=== PATIENT | male | born 1955 | race Caucasian/White ===

== ENCOUNTER → 2018-02-23 11:27 | Outpatient (CLI) | payer OTHER, SELFPAY ==
[2018-02-23 12:25] LABS: Creatinine Urine Random 78.6 mg/dL
[2018-02-23 12:27] LABS: Hemoglobin A1C% w Est Avg Glu 7.2 % (4.0-6.0)
[2018-02-23 12:30] LABS: Microalbumi Creatinin Ratio Ur 15.2 ug/mg CR (<30); Microalbumin Urine Random 1.2 mg/dL (0-1.6)
[2018-02-23 12:49] LABS: Cholesterol 221 mg/dL (140-199); HDL Cholesterol 41 mg/dL (40-60); LDL Cholesterol Calculated 135 mg/dL (<100); Triglycerides 223 mg/dL (35-150)
== END ==
PROVIDERS: PCP Internal Medicine; Visit Provider Internal Medicine
DX: E11.40 Type 2 diabetes mellitus with diabetic neuropathy, unspecified (principal); E78.2 Mixed hyperlipidemia
CPT/HCPCS: 36415; 80061; 82043; 82570; 83036

== ENCOUNTER → 2018-07-06 10:50 | Outpatient (CLI) | payer OTHER, SELFPAY | PROVIDERS: PCP Internal Medicine; Visit Provider Student in an Organized Health Care Education/Training Program | DX: R97.20 Elevated prostate specific antigen [PSA] (principal) | CPT/HCPCS: 36415; 84153 ==

== ENCOUNTER → 2018-08-06 10:07 | Outpatient (CLI) | payer OTHER, SELFPAY ==
[2018-08-06 12:22] LABS: Estimated Glomerular Filt Rate > 60.0 mL/min (>60)
== END ==
PROVIDERS: PCP Internal Medicine; Visit Provider Student in an Organized Health Care Education/Training Program
DX: N40.2 Nodular prostate without lower urinary tract symptoms (principal); R97.20 Elevated prostate specific antigen [PSA]
CPT/HCPCS: 36415; 82565

== ENCOUNTER → 2018-10-26 11:03 | Outpatient (CLI) | payer OTHER, SELFPAY ==
[2018-10-26 13:13] LABS: Prostate Specific Antigen < 0.064 ng/mL (0.10-4.00)
== END ==
PROVIDERS: Family Provider Internal Medicine; PCP Internal Medicine; Visit Provider Physician Assistant
DX: C61 Malignant neoplasm of prostate (principal)
CPT/HCPCS: 36415; 84153

== ENCOUNTER → 2018-12-12 11:10 | Outpatient (CLI) | payer OTHER, SELFPAY ==
[2018-12-13 14:25] LABS: PSA, Total < 0.1 ng/mL (< 4.1)
== END ==
PROVIDERS: PCP Internal Medicine; Visit Provider Student in an Organized Health Care Education/Training Program
DX: C61 Malignant neoplasm of prostate (principal)
CPT/HCPCS: 36415; 84153; 84154

== ENCOUNTER → 2019-12-14 14:41 | Outpatient (ROUT) | payer OTHER, SELFPAY | PROVIDERS: PCP Internal Medicine; Visit Provider Internal Medicine | DX: R39.9 Unspecified symptoms and signs involving the genitourinary system (principal) | CPT/HCPCS: 87077; 87086; 87186 ==

== ENCOUNTER → 2020-10-17 19:10 | Outpatient (ROUT) | payer OTHER, SELFPAY ==
[2020-10-17 19:32] LABS: Aspartate Aminotransferase 25 IU/L (17-59); BUN Creatinine Ratio 32.5 (6-22); Blood Urea Nitrogen 26 mg/dL (9-20); Calcium 10.2 mg/dL (8.4-10.2); Carbon Dioxide 33 mmol/L (22-32); Chloride 100 mmol/L (98-107); Cholesterol 231 mg/dL (140-199); Estimated Glomerular Filt Rate > 60.0 mL/min (>60); Glucose 139 mg/dL (80-110); HDL Cholesterol 58 mg/dL (40-60); HEMOLYSIS < 15 (0-50); LDL Cholesterol Calculated 138 mg/dL (<100); Potassium 4.5 mmol/L (3.4-5.1); Sodium 140 mmol/L (137-145); Triglycerides 174 mg/dL (35-150)
[2020-10-17 19:33] LABS: Hemoglobin A1C% w Est Avg Glu 6.7 % (4.0-6.0)
[2020-10-17 20:02] LABS: Prostate Specific Antigen < 0.064 ng/mL (0.10-4.00)
== END ==
PROVIDERS: PCP Internal Medicine; Visit Provider Internal Medicine
DX: I10 Essential (primary) hypertension (principal); E78.2 Mixed hyperlipidemia; E11.9 Type 2 diabetes mellitus without complications; Z12.5 Encounter for screening for malignant neoplasm of prostate
CPT/HCPCS: 80048; 80061; 83036; 84153; 84450

== ENCOUNTER → 2020-11-08 13:27 | Outpatient (CLI) | payer MEDICARE, SELFPAY ==
[2020-11-08] MEDS: COVID-19 VACC #1, MRNA(MOD) 100 MCG/0.5 ML VIAL IM (13:38)
== END ==
PROVIDERS: PCP Internal Medicine; Visit Provider Internal Medicine
DX: Z23 Encounter for immunization (principal)
CPT/HCPCS: 0011A; 91301

== ENCOUNTER → 2020-12-06 13:18 | Outpatient (CLI) | payer MEDICARE, SELFPAY ==
[2020-12-06] MEDS: COVID-19 VACC #2, MRNA(MOD) 100 MCG/0.5 ML VIAL IM (13:30)
== END ==
PROVIDERS: PCP Internal Medicine; Visit Provider Internal Medicine
DX: Z23 Encounter for immunization (principal)
CPT/HCPCS: 0012A; 91301

== ENCOUNTER 2021-04-01 11:15 | Outpatient (RCR) | payer OTHER, SELFPAY ==
--- NOTE | 2021-03-25 15:27 | PT.OIE ---
Current Diagnoses Cervicalgia (03/25/21) Low back pain (03/25/21) Visit Care Team Role Provider Type Vinod Khan MD Attending Provider Physician Primary Care Provider Referring Provider Specialty: Internal Medicine Address: [address] [place] [address], [facility] Email: [email or web address] Initial Evaluation PT-OP-A Visit Information Start: 03/25/21 15:03 Freq: Status: Active Protocol: Document 03/25/21 15:03 OF (Rec: 03/25/21 15:27 OF [id number]) Out-Patient Physical Therapy Visit Information Visit Information Visit Type Initial Evaluation Visit Note 65 YO male referred due to neck pain Visit Start Time 14:30 Visit Stop Time 15:03 Total Visit Minutes 33 Visit Number 1 Evaluation Information Evaluation Date 03/25/21 Precautions Precautions cervical fusion c3-5. Neuropathy, DM II, parasthesia c8 dermatome on L PT-OP-B Current Condition Start: 03/25/21 15:03 Freq: Status: Active Protocol: Document 03/25/21 15:03 OF (Rec: 03/25/21 15:27 OF [id number]) Current Condition History of Current Condition Onset Date 4 years Current Complaints headache, neck pain History of Current Condition pt states he has had an improvement in headaches since requesting PT referral. Longstanding neuropathy Treatment Goals Patient/Caregiver Goals get back to normal Prior Functional Status Baseline Function- ADL's Independent Baseline Function- Mobility Independent Current Functional Impairments (Reported) Functional Limitations- Other Pt has difficulty with overhead reaching, pain with ADL PT-OP-C Subjective Start: 03/25/21 15:03 Freq: Status: Active Protocol: Document 03/25/21 15:03 OF (Rec: 03/25/21 15:27 OF [id number]) OP-PT Subjective Patient Comments Patient Comments Pt states he has had good results from therapy previously Patient Reported Progress Improving Patient Questionnaires Neck Disability Index Neck Disability Index Impairment 1 to 19% Impaired (Score 1-9) OP-PT Pain Assessment Pain Assessment Grid Paper Pain Assessment Grid Completed Yes Location R cervical region Scale Used Numeric (0 - 10) Description Aching,Pinching,Pressure Frequency Frequent Radiating Location R sided occipital headache Pain Aggravating Factors Changing Position,ADL's, Activity,Exercise Pain Alleviating Factors Inactivity Other Pain Alleviating Factors TENS PT-OP-H Neuro Start: 03/25/21 15:03 Freq: Status: Active Protocol: Document 03/25/21 15:03 OF (Rec: 03/25/21 15:27 OF [id number]) Sensation Evaluation Gross Sensation Gross Sensation WNL Sensation Description Paresthesia Dermatome Impairments C8 Comments Summary Comments neuropathy bilat feet PT-OP-K Range of Motion Start: 03/25/21 15:03 Freq: Status: Active Protocol: Document 03/25/21 15:03 OF (Rec: 03/25/21 15:27 OF [id number]) Cervical Spine Range of Motion Cervical Spine Active Testing Position Sitting Flexion 45 Extension 60 Rotation Left 20 Rotation Right 25 Lateral Flexion Left 25 Lateral Flexion Right 20 ROM Limitations Pain Comments limited after cervical fusion Shoulder Goniometric Range of Motion Shoulder Active Shoulder ROM WFL Yes Comments Bilat shldr WNL PT-OP-Q Treatments Start: 03/25/21 15:03 Freq: Status: Active Protocol: Document 03/25/21 15:03 OF (Rec: 03/25/21 15:27 OF [id number]) Therapeutic Exercises Supine Exercises chin tuck Side bilateral Reps/Minutes [id number] Comments cues for DNF recruitment, goal for 60sec Sitting Exercises UT stretching Side bilateral Reps/Minutes [id number] Comments cues for sidebending Standing Exercises rows Side bilateral Resistance TB 2 Reps/Minutes 1x10 Comments cues for shoulder retraction, UT relaxing Manual Therapy Treatment Soft Tissue Mobilization suboccipital Mobilization Type Sustained Pressure Intensity/Depth Moderate Body Position Supine Comments Pt tolerates [id number] for suboccipital release/traction gentle P/A mobs Self-Care/Home Management Treatment Education Patient Education Body Mechanics,Home Exercise Program,Pain Management PT-OP-T Assessment and Plan Start: 03/25/21 15:03 Freq: Status: Active Protocol: Document 03/25/21 15:03 OF (Rec: 03/25/21 15:27 OF [id number]) Physical Therapy Assessment Rehab Potential Rehabilitation Potential Excellent Evaluation Complexity Number of Personal Factors/Comorbidities 1-2 Number of Body Systems Impaired 1-2 Clinical Presentation at Evaluation Stable Impairments Impairments Pain,ROM,Strength Goals 3 Impairment NDI Short Term Goal (STG) Pt will improve score on NDI to less than 5/50 to demonstrate improved function STG Duration 2 weeks Casing Finisher And Stuffer Goal (LTG) Pt will improve score on NDI to 0/50 to demonstrate improved function LTG Duration 4 weeks 2 Impairment Pain with ADL Short Term Goal (STG) Pt will demonstrate cervical rotation of 45 degrees bilat to reduce pain with ADL STG Duration 2 weeks Casing Finisher And Stuffer Goal (LTG) Pt will demonstrate 60 degrees rotation bilat to improve endurance with ADL LTG Duration 4 weeks 1 Impairment pt has no HEP Short Term Goal (STG) Pt will complete basic HEP with ALEXANDER STG Duration 2 weeks Jail Goal (LTG) Pt will be I with advanced HEP for DNF strengthening, ROM, pain management to return to I within community LTG Duration 4 weeds Assessment Summary Assessment Anusha is a 65 YO male referred to physical therapy for chronic neck pain. He has had 2 prior surgeries, the most recent in 2017 which was a fusion of c3-5. He has had off /on headaches on R side which have progressed to constant recently. He also has numbness /tingling in L UE with limits his ability to exercise and participate in community activities. He will require skilled therapy to improve I with ADl, return to community activities, and improve pain management. Physical Therapy Plan Frequency and Duration Frequency of Treatment 1-2x/week Duration of Treatment 4weeks Plan of Care Start Date 03/25/21 Plan of Care End Date 04/25/21 Therapeutic Interventions Therapeutic Interventions Home Exercise Program,Joint Mobilizations,Manual Therapy, Neuromuscular Re-education, Soft Tissue Mobilization, Therapeutic Exercises Next Visit Focus/Plan Next Note Type Treatment Note Next Visit Plan assess HEP performance/pain. Progress post scapular stabilizers if able, progress chin hillary lewis spine stretches. subocciptal mobs/manual traction for headache
--- NOTE | 2021-03-25 15:28 | PT.OPPOC ---
Physical, Occupational & Speech Therapy At [facility] Current Diagnoses Cervicalgia (03/25/21) Low back pain (03/25/21) Visit Care Team Role Provider Type Vinod Khan MD Attending Provider Physician Primary Care Provider Referring Provider Specialty: Internal Medicine Address: [address] [place] [address], [facility] Email: [email or web address] Plan Of Care PT-OP-T Assessment and Plan Start: 03/25/21 15:03 Freq: Status: Active Protocol: Document 03/25/21 15:03 OF (Rec: 03/25/21 15:27 OF [id number]) Physical Therapy Assessment Rehab Potential Rehabilitation Potential Excellent Evaluation Complexity Number of Personal Factors/Comorbidities 1-2 Number of Body Systems Impaired 1-2 Clinical Presentation at Evaluation Stable Impairments Impairments Pain,ROM,Strength Goals 3 Impairment NDI Short Term Goal (STG) Pt will improve score on NDI to less than 5/50 to demonstrate improved function STG Duration 2 weeks Digital Media Producer Goal (LTG) Pt will improve score on NDI to 0/50 to demonstrate improved function LTG Duration 4 weeks 2 Impairment Pain with ADL Short Term Goal (STG) Pt will demonstrate cervical rotation of 45 degrees bilat to reduce pain with ADL STG Duration 2 weeks Detention Goal (LTG) Pt will demonstrate 60 degrees rotation bilat to improve endurance with ADL LTG Duration 4 weeks 1 Impairment pt has no HEP Short Term Goal (STG) Pt will complete basic HEP with ALEXANDER STG Duration 2 weeks Digital Media Producer Goal (LTG) Pt will be I with advanced HEP for DNF strengthening, ROM, pain management to return to I within community LTG Duration 4 weeds Assessment Summary Assessment Anusha is a 65 YO male referred to physical therapy for chronic neck pain. He has had 2 prior surgeries, the most recent in 2017 which was a fusion of c3-5. He has had off /on headaches on R side which have progressed to constant recently. He also has numbness /tingling in L UE with limits his ability to exercise and participate in community activities. He will require skilled therapy to improve I with ADl, return to community activities, and improve pain management. Physical Therapy Plan Frequency and Duration Frequency of Treatment 1-2x/week Duration of Treatment 4weeks Plan of Care Start Date 03/25/21 Plan of Care End Date 04/25/21 Therapeutic Interventions Therapeutic Interventions Home Exercise Program,Joint Mobilizations,Manual Therapy, Neuromuscular Re-education, Soft Tissue Mobilization, Therapeutic Exercises Next Visit Focus/Plan Next Note Type Treatment Note Next Visit Plan assess HEP performance/pain. Progress post scapular stabilizers if able, progress hillary guevara spine stretches. subocciptal mobs/manual traction for headache Plan of Care Dates Plan of Care Start Date 03/25/21 Plan of Care End Date 04/25/21 Electronically Signed by: Sai Joy, PT 03/25/21 [id number] Please Sign and Return: I have reviewed this Plan of Care and certify that the skilled therapy services above are required to meet the patient?s needs. Physician Signature Date Printed Name and Credentials Clinical Instructor Signature Printed Name and Credentials
--- NOTE | 2021-03-28 10:38 | PT-OP ANOTE ---
Pt no showed appt, called pt and he was very apologetic, just completely forgot, but neck is feeling better. Confirmed next appt and pt states he will be there.
--- NOTE | 2021-04-01 11:47 | PT.OTN ---
Current Diagnoses Cervicalgia (04/01/21) Low back pain (04/01/21) Physical Therapy Treatment Note PT-OP-A Visit Information Start: 03/25/21 15:03 Freq: Status: Active Protocol: Document 04/01/21 11:39 OF (Rec: 04/01/21 11:47 OF [id number]) Out-Patient Physical Therapy Visit Information Visit Information Visit Type Treatment Note Visit Note 65 YO male referred due to neck pain Visit Start Time 11:15 Visit Stop Time 11:35 Total Visit Minutes 20 Visit Number 2 Precautions Precautions cervical fusion c3-5. Neuropathy, DM II, parasthesia c8 dermatome on L PT-OP-B Current Condition Start: 03/25/21 15:03 Freq: Status: Active Protocol: Document 03/25/21 15:03 OF (Rec: 03/25/21 15:27 OF [id number]) Current Condition History of Current Condition Onset Date 4 years Current Complaints headache, neck pain History of Current Condition pt states he has had an improvement in headaches since requesting PT referral. Longstanding neuropathy Treatment Goals Patient/Caregiver Goals get back to normal Prior Functional Status Baseline Function- ADL's Independent Baseline Function- Mobility Independent Current Functional Impairments (Reported) Functional Limitations- Other Pt has difficulty with overhead reaching, pain with ADL PT-OP-C Subjective Start: 03/25/21 15:03 Freq: Status: Active Protocol: Document 04/01/21 11:39 OF (Rec: 04/01/21 11:47 OF [id number]) OP-PT Subjective Patient Comments Patient Comments pt states he is feeling better , reduced pain, no parasthesia in L UE Patient Reported Progress Improving OP-PT Pain Assessment Pain Assessment Grid Paper Pain Assessment Grid Completed No Location R cervical region Intensity 1 Scale Used Numeric (0 - 10) Description Aching,Pinching,Pressure Frequency Frequent Radiating Location R sided occipital headache Pain Aggravating Factors Changing Position,ADL's, Activity,Exercise Pain Alleviating Factors Inactivity Other Pain Alleviating Factors TENS PT-OP-H Neuro Start: 03/25/21 15:03 Freq: Status: Active Protocol: Document 03/25/21 15:03 OF (Rec: 03/25/21 15:27 OF [id number]) Sensation Evaluation Gross Sensation Gross Sensation WNL Sensation Description Paresthesia Dermatome Impairments C8 Comments Summary Comments neuropathy bilat feet PT-OP-K Range of Motion Start: 03/25/21 15:03 Freq: Status: Active Protocol: Document 03/25/21 15:03 OF (Rec: 03/25/21 15:27 OF [id number]) Cervical Spine Range of Motion Cervical Spine Active Testing Position Sitting Flexion 45 Extension 60 Rotation Left 20 Rotation Right 25 Lateral Flexion Left 25 Lateral Flexion Right 20 ROM Limitations Pain Comments limited after cervical fusion Shoulder Goniometric Range of Motion Shoulder Active Shoulder ROM WFL Yes Comments Bilat shldr WNL PT-OP-Q Treatments Start: 03/25/21 15:03 Freq: Status: Active Protocol: Document 04/01/21 11:39 OF (Rec: 04/01/21 11:47 OF [id number]) Therapeutic Exercises Supine Exercises chin tuck Side bilateral Reps/Minutes [id number] Comments cues for DNF recruitment, goal for 60sec Sitting Exercises UT stretching Side bilateral Reps/Minutes [id number] Comments cues for sidebending Standing Exercises rows Side bilateral Resistance TB 3 Reps/Minutes 1x10 Comments cues for shoulder retraction, UT relaxing Manual Therapy Treatment Soft Tissue Mobilization suboccipital Mobilization Type Sustained Pressure Intensity/Depth Moderate Body Position Supine Comments Pt tolerates [id number] for suboccipital release/traction gentle P/A mobs. AAROM for lateral bending, rotation. Self-Care/Home Management Treatment Education Patient Education Body Mechanics,Home Exercise Program,Pain Management PT-OP-T Assessment and Plan Start: 03/25/21 15:03 Freq: Status: Active Protocol: Document 04/01/21 11:39 OF (Rec: 04/01/21 11:47 OF [email or web address]) Physical Therapy Assessment Rehab Potential Rehabilitation Potential Excellent Evaluation Complexity Number of Personal Factors/Comorbidities 1-2 Number of Body Systems Impaired 1-2 Clinical Presentation at Evaluation Stable Impairments Impairments Pain,ROM,Strength Progress Towards Goals Progress Towards Goals Progressing Toward Goals Assessment Summary Assessment pt has reduced pain and symptoms. States he has baseline headache. He is agreeable to progressing HEP for rows and chin tucks. He requires assist for proper set up and performance. He states his can assist with suboccipital release/traction for HEP Physical Therapy Plan Next Visit Focus/Plan Next Note Type Treatment Note Next Visit Plan assess HEP performance/pain. Progress post scapular stabilizers if able, rows were tolerated well, progress chin tuck, c spine stretches. subocciptal mobs/manual traction for headache
--- NOTE | 2021-06-04 14:12 | PT.OPDS ---
Current Diagnoses Cervicalgia (04/01/21) Low back pain (04/01/21) Visit Care Team Role Provider Type Vinod Khan MD Attending Provider Physician Primary Care Provider Referring Provider Specialty: Internal Medicine Address: [address] [place] [address], [facility] Email: [email or web address] Visit Number Visit Number 2 Discharge Summary PT-OP-B Current Condition Start: 03/25/21 15:03 Freq: Status: Active Protocol: Document 03/25/21 15:03 OF (Rec: 03/25/21 15:27 OF [id number]) Current Condition History of Current Condition Onset Date 4 years Current Complaints headache, neck pain History of Current Condition pt states he has had an improvement in headaches since requesting PT referral. Longstanding neuropathy Treatment Goals Patient/Caregiver Goals get back to normal Prior Functional Status Baseline Function- ADL's Independent Baseline Function- Mobility Independent Current Functional Impairments (Reported) Functional Limitations- Other Pt has difficulty with overhead reaching, pain with ADL PT-OP-C Subjective Start: 03/25/21 15:03 Freq: Status: Active Protocol: Document 04/01/21 11:39 OF (Rec: 04/01/21 11:47 OF [id number]) OP-PT Subjective Patient Comments Patient Comments pt states he is feeling better , reduced pain, no parasthesia in L UE Patient Reported Progress Improving OP-PT Pain Assessment Pain Assessment Grid Paper Pain Assessment Grid Completed No Location R cervical region Intensity 1 Scale Used Numeric (0 - 10) Description Aching,Pinching,Pressure Frequency Frequent Radiating Location R sided occipital headache Pain Aggravating Factors Changing Position,ADL's, Activity,Exercise Pain Alleviating Factors Inactivity Other Pain Alleviating Factors TENS PT-OP-H Neuro Start: 03/25/21 15:03 Freq: Status: Active Protocol: Document 03/25/21 15:03 OF (Rec: 03/25/21 15:27 OF [id number]) Sensation Evaluation Gross Sensation Gross Sensation WNL Sensation Description Paresthesia Dermatome Impairments C8 Comments Summary Comments neuropathy bilat feet PT-OP-K Range of Motion Start: 03/25/21 15:03 Freq: Status: Active Protocol: Document 03/25/21 15:03 OF (Rec: 03/25/21 15:27 OF [id number]) Cervical Spine Range of Motion Cervical Spine Active Testing Position Sitting Flexion 45 Extension 60 Rotation Left 20 Rotation Right 25 Lateral Flexion Left 25 Lateral Flexion Right 20 ROM Limitations Pain Comments limited after cervical fusion Shoulder Goniometric Range of Motion Shoulder Active Shoulder ROM WFL Yes Comments Bilat shldr WNL PT-OP-T Assessment and Plan Start: 03/25/21 15:03 Freq: Status: Active Protocol: Document 06/04/21 14:12 OF (Rec: 06/04/21 14:12 OF [id number]) Physical Therapy Plan Discharge Physical Therapy Discharge Reasons Goals Met Discharge Comments Pt met goals. DC skilled therapy.
== END 2021-06-05 08:42 | disposition home or self-care (01) ==
LOC: PHYS 11:15
PROVIDERS: PCP Internal Medicine; Referring Provider Internal Medicine; Visit Provider Internal Medicine
DX: M54.2 Cervicalgia (principal); M54.5 Low back pain
CPT/HCPCS: 97110; 97161

== ENCOUNTER → 2021-04-30 08:32 | Outpatient (CLI) | payer OTHER, SELFPAY ==
[2021-04-30 09:47] LABS: COVID19 -Nasal RAPID Negative (Negative)
== END ==
PROVIDERS: PCP Internal Medicine; Referring Provider Surgery; Visit Provider Surgery
DX: Z20.822 Contact with and (suspected) exposure to COVID-19 (principal)
CPT/HCPCS: 87635; C9803

== ENCOUNTER 2021-05-01 13:30 | Day surgery (SDC) | payer OTHER, SELFPAY ==
[2021-05-01] MEDS: LACTATED RINGERS 1,000 ML 200 ML IV (14:06)
[2021-05-01 14:07] VITALS: BP 138/81; PULSE 78; RESP 16; TEMP 36.3; O2SAT 98; BMI 52.3
--- NOTE | 2021-05-01 14:32 | PM.HP.1 ---
History of Present Illness History of Present Illness Date Patient Seen: 05/01/21 Time Patient Seen: 14:32 Date of Onset of Symptoms: 05/01/21 Chief complaint: SCREENING COLONOSCOPY Narrative: The patient presents for colorectal sreening. Three prior colonoscopies last 10 years ago normal. No personal or family history of colon cancer. On further history denies any recent gastrointestinal symptoms. No nausea, vomiting, abdominal pain, loss of appetite, unexplained weight loss, change in bowel habits, diarrhea, constipation, melena, hematochezia, or bright red blood per rectum. Patient History Medical History (Updated 05/01/21 @ 14:35 by Juan Pablo Lynch MD) Diabetes Prostate cancer Surgical History (Updated 05/01/21 @ 14:35 by Juan Pablo Lynch MD) H/O prostatectomy Family & Social History Social History: household members spouse Tobacco & Substance use: Tobacco type cigars Smoking Status Current every day smoker alcohol intake former Substance Use Type does not use Meds Home Medications and Allergies Home Medications Medication Instructions Recorded Confirmed Type duloxetine 20 mg capsule,delayed 20 mg PO DAILY 05/01/21 05/01/21 History release glipizide 5 mg tablet 5 mg PO BID 05/01/21 05/01/21 History metformin 850 mg tablet 850 mg PO BID 05/01/21 05/01/21 History Allergies Allergy/AdvReac Type Severity Reaction Status Date / Time lisinopril Allergy Severe Swelling Verified 05/01/21 13:59 of Lip/Tongue/Throat cefaclor [CEFACLOR] Allergy Unknown rash Verified 05/01/21 13:58 Review of Systems Review of Systems ROS: Yes All systems reviewed with the patient and are negative except as otherwise documented Exam Vital Signs (past 8 hours): - 05/01/21 14:07 Temperature 97.3 F L Pulse Rate 78 Respiratory Rate 16 Blood Pressure 138/81 Pulse Oximetry 98 Oxygen Delivery Method Room Air Narrative Exam Narrative: GENERAL-well developed adult male, no acute distress HEENT-no scleral icterus, hearing intact NECK-no JVD, trachea midline CVS- regular rate, no peripheral edema RESP-unlabored respiratory effort, no audible wheezing GI-soft, nontender nondistended MSK-no cyanosis or clubbing, extremities without deformity SKIN-warm, dry NEURO-alert and oriented, no focal deficits PYSCH-Appropriate mood and affect Assessment & Plan Assessment & Plan narrative: The patient requires colorectal screening and colonoscopy is recommended. Technical details were discussed. Risks, benefits, alternatives explained. Risks including but not limited to myocardial infarction, aspiration, bleeding, pain, missed lesion, incomplete examination, need for further radiographic studies, colonic perforation, and need for major abdominal surgery were discussed. All questions were answered to their satisfaction, and they are in agreement with this plan.
[2021-05-01] MEDS: fentaNYL 250 MCG/5 ML INJ IV (14:51)
[2021-05-01] MEDS: MIDAZOLAM 5 MG/5 ML VIAL IV (14:52)
--- NOTE | 2021-05-01 15:05 | PM.OP.ENDO ---
Operative Date/Time/Diagnoses Date of procedure: 05/01/21 Time of procedure: 15:05 Pre-op diagnosis: Screening colonoscopy Post-op diagnosis: same Procedure & Clinicians Study performed: Colonoscopy Same procedure as scheduled: Yes Indications: Screening Surgeon: Juan Pablo Lynch Procedure Notes Procedure in detail: Medications: Conscious sedation using 7mg IV midazolam and 250mcg IV of fentanyl The history and physical was performed/updated and the patient is ASA class is 2. The procedure was discussed in detail with the patient. Potential risks complications including infection, bleeding, missed diagnosis, perforation, need for surgery, and were explained. Their questions were answered and informed consent was obtained. Patient was brought to the procedure room and placed standard monitoring equipment. The patient's vital signs were monitored continuously throughout the entire procedure. Prior to starting time-out was performed. The patient was placed in the left lateral recumbent position. Procedural sedation was administered. Examination began with a thorough inspection of the perianal area there was no evidence of fissures, fistulae, external hemorrhoids or cutaneous malignancy. The colonoscopy scope was then placed into the anal canal and was advanced to the cecum, which was identified by the ileocecal valve, the appendiceal orifice and the confluence of the taenia. The scope was then slowly withdrawn examining colon thoroughly in all directions, irrigating it of any residual stool. FINDINGS 1. Quality of prep poor 2. No large masses or polyps 3 Sigmoid diverticulosis The patient tolerated the procedure well. They will be discharged once criteria are met. The withdrawl time was 6 minutes. The sedation time was 25 minutes. Specimen(s): none sent Complications: none Impression: normal colonoscopy Post-procedure Recommendations: Colonscopy in 10 years Disposition: same day surgery
[2021-05-01 15:11] VITALS: BP 152/81; PULSE 76; RESP 10; TEMP 36.7; O2SAT 95
[2021-05-01 15:15] VITALS: BP 123/77; PULSE 77; RESP 12; O2SAT 95
[2021-05-01 15:21] VITALS: BP 132/83; PULSE 76; RESP 14; O2SAT 96
== END 2021-05-01 16:12 | disposition home or self-care (01) ==
PROVIDERS: PCP Internal Medicine; Referring Provider Surgery; Visit Provider Surgery
PROC: 0DJD8ZZ Inspection of Lower Intestinal Tract, Via Natural or Artificial Opening Endoscopic (ICD-10-PCS; CPT 45378; principal; 2021-05-01 14:30)
DX: Z12.11 Encounter for screening for malignant neoplasm of colon (principal); E11.9 Type 2 diabetes mellitus without complications; Z79.84 Long term (current) use of oral hypoglycemic drugs; K57.30 Diverticulosis of large intestine without perforation or abscess without bleeding
CPT/HCPCS: G0121; 82962; 99152; J2250; J3010

== ENCOUNTER → 2022-12-10 15:43 | Outpatient (CLI) | payer OTHER, SELFPAY ==
[2022-12-10 16:18] LABS: Hematocrit 46.7 % (41-53); Hemoglobin 15.9 g/dL (13.5-17.5); Mean Corpuscular Hemoglobin 31.1 PG (26-34); Mean Corpuscular Volume 91.4 fL (80-100); Platelet Count 240 X10^3/uL (150-400); Red Blood Cell Count 5.11 X10^6/uL (4.5-5.9); Red Cell Distribution Width 13.8 % (11.6-14.8); White Blood Cell Count 7.9 X10^3/uL (4.5-11.0)
[2022-12-10 16:41] LABS: Alanine Aminotransferase 15 IU/L (<50); Albumin 4.5 g/dL (3.5-5.0); Albumin Globulin Ratio 1.5 (1.0-2.8); Alkaline Phosphatase 70 U/L (38-126); Aspartate Aminotransferase 19 IU/L (17-59); BUN Creatinine Ratio 20.6 (6-22); Bilirubin Total 0.4 mg/dL (0.2-1.3); Blood Urea Nitrogen 14 mg/dL (9-20); Calcium 9.4 mg/dL (8.4-10.2); Carbon Dioxide 27 mmol/L (22-32); Chloride 102 mmol/L (98-107); Cholesterol 267 mg/dL (140-199); Estimated Glomerular Filt Rate > 60 mL/min (>60); Glucose 97 mg/dL (80-110); HDL Cholesterol 49 mg/dL (40-60); HEMOLYSIS < 15 (0-50); LDL Cholesterol Calculated 150 mg/dL (<100); Potassium 4.5 mmol/L (3.4-5.1); Sodium 136 mmol/L (137-145); Total Protein 7.5 g/dL (6.3-8.2); Triglycerides 341 mg/dL (35-150)
[2022-12-10 17:10] LABS: TSH w/ Reflex to FT4 4.03 uIU/mL (0.47-4.68)
[2022-12-11 00:10] LABS: Hemoglobin A1C% w Est Avg Glu 6.2 % (4.0-6.0)
== END ==
PROVIDERS: PCP Internal Medicine; Referring Provider Internal Medicine; Visit Provider Internal Medicine
DX: E11.42 Type 2 diabetes mellitus with diabetic polyneuropathy (principal); Z85.46 Personal history of malignant neoplasm of prostate; E78.2 Mixed hyperlipidemia; G62.9 Polyneuropathy, unspecified
CPT/HCPCS: 36415; 80053; 80061; 83036; 84153; 84443; 85027

== ENCOUNTER 2023-01-29 13:50 | Emergency (ER) | payer OTHER, SELFPAY ==
[2023-01-29] VITALS (41 sets, daily range): BP systolic 120–155; BP diastolic 68–89; PULSE 52–77; RESP 16–37; TEMP 36.4–36.6; O2SAT 93–100; BMI 21.1
--- NOTE | 2023-01-29 14:04 | DI.RAD.S_ITS ---
PROCEDURE: XR CHEST 1V INDICATIONS: chest pain TECHNIQUE: One view of the chest was acquired. COMPARISON: None. FINDINGS: Surgical changes and devices: Partially visualized cervical fixation plate. Lungs and pleura: Lungs are clear. No pleural effusions or pneumothorax. Mediastinum: Mediastinal contours appear normal. Heart size is normal. Bones and chest wall: No suspicious bony lesions. Overlying soft tissues appear unremarkable. IMPRESSION: No acute pulmonary process. Dictated by: Court Vázquez M.D. on 01/29/2023 at 15:08 Approved by: Court Vázquez M.D. on 01/29/2023 at 15:08
[2023-01-29 14:16] LABS: Add Manual Diff / Slide Review NO; Basophils Absolute Auto 0 /uL (0-100); Basophils Percent Auto 0.3 % (0-2); Eosinophils Absolute Auto 100 /uL (0-450); Eosinophils Percent Auto 0.7 % (2-4); Hematocrit 45.2 % (41-53); Hemoglobin 15.3 g/dL (13.5-17.5); Lymphocytes Absolute Auto 1600 /uL (1100-4500); Lymphocytes Percent Auto 12.1 % (25-40); Mean Corpuscular HGB Conc 33.9 % (30-36); Mean Corpuscular Hemoglobin 30.9 PG (26-34); Mean Corpuscular Volume 91.1 fL (80-100); Monocytes Absolute Auto 700 /uL (0-900); Monocytes Percent Auto 5.4 % (3-14); Neutrophils Absolute Auto 10600 /uL (1500-7000); Neutrophils Percent Auto 81.5 % (50-75); Platelet Count 202 X10^3/uL (150-400); Red Blood Cell Count 4.97 X10^6/uL (4.5-5.9); Red Cell Distribution Width 13.6 % (11.6-14.8); White Blood Cell Count 12.9 X10^3/uL (4.5-11.0)
[2023-01-29 14:30] LABS: INR 1.1 (0.9-1.3); Prothrombin Time 12.2 SECONDS (10.1-12.7)
[2023-01-29 14:33] LABS: PTT Partial Thromboplastin Tim 31 SECONDS (26-36)
[2023-01-29 14:34] LABS: Alanine Aminotransferase 23 IU/L (<50); Albumin 4.5 g/dL (3.5-5.0); Albumin Globulin Ratio 1.5 (1.0-2.8); Alkaline Phosphatase 48 U/L (38-126); Aspartate Aminotransferase 35 IU/L (17-59); BUN Creatinine Ratio 31.7 (6-22); Bilirubin Total 0.4 mg/dL (0.2-1.3); Blood Urea Nitrogen 20 mg/dL (9-20); Carbon Dioxide 25 mmol/L (22-32); Chloride 101 mmol/L (98-107); Creatine Kinase 183 U/L (55-170); Estimated Glomerular Filt Rate > 60 mL/min (>60); Globulin 3.1 g/dL (1.7-4.1); Glucose 291 mg/dL (80-110); HEMOLYSIS 34 (0-50); Lipase 71 U/L (23-300); Magnesium 1.6 mg/dL (1.6-2.3); Potassium 4.4 mmol/L (3.4-5.1); Sodium 136 mmol/L (137-145); Total Protein 7.6 g/dL (6.3-8.2)
[2023-01-29 14:50] LABS: Troponin I 0.912 ng/mL (0.01-0.034)
--- NOTE | 2023-01-29 14:54 | DI.CT.S_ITS ---
PROCEDURE: CT ANGIO CHEST ABDOMEN PELVIS INDICATIONS: Dissection protocol/chest abdominal pain TECHNIQUE: Precontrast 5 mm thick sections acquired from the lung apices to the iliac crests. After the administration of intravenous contrast, 2.5 mm thick sections again acquired from the lung apices to the iliac crests. Maximum intensity projection (MIP) oblique sagittal and coronal reformats were then acquired. For radiation dose reduction, the following was used: automated exposure control. COMPARISON: None. FINDINGS: Image quality: Excellent. AORTA: There are no areas of hemodynamically significant stenosis, vascular occlusion, aneurysmal dilation or dissection. Scattered areas of mild atherosclerotic calcification are noted within the abdominal infrarenal aorta. CHEST: Lungs and pleura: No acute airspace opacities. No pleural effusions or pneumothorax. Central and peripheral airways are patent and normal in caliber. Emphysematous changes are present. Some reticular opacities are present likely related to fibrotic change. Mediastinum: Heart size is normal. No pericardial effusion. No mediastinal or hilar adenopathy by size criteria. Central pulmonary arteries are normal in size. Esophagus is normal in caliber. No hiatal hernias. Bones and chest wall: No axillary adenopathy by size criteria. Thyroid gland is unremarkable . No suspicious bony lesions. No vertebral body compression fractures. ABDOMEN: Vasculature: Celiac trunk and mesenteric arteries are patent. Renal arteries are also patent. Solid organs: Liver is enlarged with steatosis. Gallbladder is unremarkable . Biliary system is non dilated. Pancreas enhances normally. Spleen is normal in size and enhancement. No adrenal nodules. Both kidneys are normal in size and enhancement, without hydronephrosis. Peritoneum and bowel: No free fluid or air. Bowel loops are normal in caliber and wall thickness. Colonic diverticula are present. Nodes and vessels: No retroperitoneal or mesenteric adenopathy by size criteria. Inferior vena cava is normal in morphology. Miscellaneous: No ventral hernias. PELVIS: Genitourinary: Bladder wall thickness is normal. Miscellaneous: No inguinal hernias or adenopathy. No ventral hernias. Bones: No suspicious bony lesions. No vertebral body compression fractures. IMPRESSION: Aorta demonstrates mild atherosclerotic calcifications. No evidence of dissection or other hemodynamic process. Dictated by: Court Vázquez M.D. on 01/29/2023 at 15:51 Approved by: Court Vázquez M.D. on 01/29/2023 at 15:58
--- NOTE | 2023-01-29 14:56 | ED.CHESTPAIN ---
HPI - Chest Pain <Crow Rosales MD - Last Filed: 02/15/23 22:20> General Chief Complaint: Chest Pain Stated Complaint: chest pain Time Seen by Provider: 01/29/23 14:50 History of Present Illness HPI narrative: Patient here with . Complaints 4 hours ago onset epigastric substernal chest pain that radiates to his neck and to his back. No nausea vomiting sweating or syncope or numbness tingling or weakness. Patient does have history of diabetes. He does smoke. No family history of heart attack. Patient states he is had this off and on for the past couple months. But this time they discomfort did not go away. Patient in no distress at this time. No history of aortic aneurysm or dissection. EKG does not show ST elevation. Patient in no distress. States discomfort is 2/10 at this time. Related Data Home Medications Medication Instructions Recorded Confirmed clopidogrel 75 mg tablet 75 mg PO DAILY heart attack 02/05/23 02/05/23 losartan 25 mg tablet 25 mg PO DAILY heart attack 02/05/23 02/05/23 magnesium oxide 400 mg PO BID 02/05/23 02/05/23 metoprolol succinate 25 mg 12.5 mg PO DAILY 02/05/23 02/05/23 tablet,extended release 24 hr Previous Rx's Medication Instructions Recorded buspirone 15 mg tablet 15 mg PO TID #180 tabs 12/10/22 glipizide 5 mg tablet 5 mg PO BID #180 tabs 12/10/22 metformin 850 mg tablet 850 mg PO BID #180 tabs 12/10/22 rosuvastatin 10 mg tablet 10 mg PO DAILY #90 tabs 12/11/22 sertraline 100 mg tablet 100 mg PO DAILY #90 tabs 02/03/23 Allergies Allergy/AdvReac Type Severity Reaction Status Date / Time lisinopril Allergy Severe Swelling Verified 02/05/23 14:14 of Lip/Tongue/Throat cefaclor [CEFACLOR] Allergy Unknown rash Verified 02/05/23 14:14 Review of Systems <Crow Rosales MD - Last Filed: 02/15/23 22:20> Review of Systems Narrative: GENERAL: negative chills, fatigue, malaise, fever, sweats. HEENT: negative sinus pain, ear pain, sore throat RESPIRATORY: negative dyspnea, cough CARDIOVASCULAR: Pulse chest pain, negative palpitations GASTROINTESTINAL: negative nausea, vomiting, positive abdominal pain : negative dysuria, frequency, hematuria MUSCULOSKELETAL: negative muscle or bony pain SKIN: negative rash, skin lesions NEUROLOGIC: negative weakness, numbness ROS Unobtainable: All systems reviewed & are unremarkable except as noted in HPI and below Patient History <Crow Rosales MD - Last Filed: 02/15/23 22:20> Medical History (Updated 02/13/23 @ 00:01 by ) Coronary artery disease Generalized anxiety disorder History of prostate cancer Mixed hyperlipidemia Polyneuropathy, unspecified Tobacco use disorder Type 2 diabetes mellitus with polyneuropathy Surgical History H/O prostatectomy Social History household members: spouse Smoking Status: Former smoker alcohol intake: former Smoking Status: Current every day smoker Substance Use Type: does not use Exam <Crow Rosales MD - Last Filed: 02/15/23 22:20> Narrative Exam Narrative: GENERAL: in no distress, not toxic not dyspneic HEAD: Normocephalic. EYES: Pupils equal round ENT: Mucous membranes moist. NECK: Trachea midline. CARDIOVASCULAR: Regular rate and rhythm without murmurs, strong bilateral carotid radial and posterior tib pulses. Brisk cap refills of the fingers RESPIRATORY: Clear to auscultation. Breath sounds equal bilaterally. No wheezes, rales, or rhonchi. GASTROINTESTINAL: Abdomen soft, non-tender, abdomen soft flat nontender no pain out of proportion to exam. No CVA tenderness. Bowel sounds are present. EXTREMITIES: No gross deformities. BACK: No flank tenderness. NEURO: AOx4. SKIN: Warm and dry, skin is warm pink and dry. PSYCH: Not anxious, is cooperative Initial Vital Signs Initial Vital Signs: Vital Signs Temperature 97.8 F 01/29/23 14:05 Pulse Rate 71 01/29/23 14:05 Respiratory Rate 16 01/29/23 14:05 Blood Pressure 155/87 H 01/29/23 14:05 Pulse Oximetry 99 01/29/23 14:05 Oxygen Delivery Method Room Air 01/29/23 14:05 <Jose Cortez DO - Last Filed: 01/29/23 21:28> Initial Vital Signs Initial Vital Signs: Vital Signs Temperature 97.8 F 01/29/23 14:05 Pulse Rate 71 01/29/23 14:05 Respiratory Rate 16 01/29/23 14:05 Blood Pressure 155/87 H 01/29/23 14:05 Pulse Oximetry 99 01/29/23 14:05 Oxygen Delivery Method Room Air 01/29/23 14:05 Course <Crow Rosales MD - Last Filed: 02/15/23 22:20> Course Course Narrative: Bobby: Sign out Dr Cortez, awaiting for bed placement. Patient has non-STEMI. At this time [facility] will accept patient pending bed assignment. Orders Ordered: Discontinued Medications Alprazolam (Alprazolam 0.5 Mg Tablet) 0.5 mg PO NOW ONE Stop: 01/29/23 17:47 Last Admin: 01/29/23 17:57 Dose: 0.5 mg Documented By: NR Aspirin (Aspirin 81 Mg Chew Tab) 324 mg PO NOW ONE Stop: 01/29/23 16:58 Last Admin: 01/29/23 17:16 Dose: 324 mg Documented By: SHIMA Heparin Sodium (Porcine) (Heparin 5,000 Unit/Ml Vial) 4,000 unit 80 unit/kg (6100 unit) IV NOW ONE Stop: 01/29/23 16:22 Last Admin: 01/29/23 17:11 Dose: 4,000 unit Documented By: SHIMA Sodium Chloride (Normal Saline 0.9%) 1,000 mls @ 1,000 mls/hr IV BOLUS ONE Stop: 01/29/23 15:55 Last Infusion: 01/29/23 16:58 Dose: 0 mls/hr Documented By: Admin: 01/29/23 16:01 Dose: 1,000 mls/hr Documented By: KAVITA Heparin Sodium/Dextrose (Heparin Drip) 25,000 unit in 500 mls @ 18.398 mls/hr IV CONT ZOE; Protocol Last Admin: 01/29/23 17:12 Dose: 12 units/kg/hr, 18.398 mls/hr Documented By: SHIMA Co-signed By: RORY Lorazepam (Lorazepam 2 Mg/Ml Inj) 0.5 mg IV NOW ONE Stop: 01/29/23 18:49 Last Admin: 01/29/23 19:00 Dose: 0.5 mg Documented By: NR Metoprolol Succinate (Metoprolol Er 25 Mg Tablet) 25 mg PO NOW ONE Stop: 01/29/23 16:57 Last Admin: 01/29/23 17:00 Dose: 25 mg Documented By: [facility] Vital Signs Vital signs: Vital Signs - 8 hr 01/29/23 14:05 01/29/23 14:26 01/29/23 14:27 Temperature 97.8 F Pulse Rate 71 66 65 Respiratory Rate 16 20 Blood Pressure 155/87 H Pulse Oximetry 99 98 97 Oxygen Delivery Method Room Air 01/29/23 14:27 01/29/23 14:30 01/29/23 14:30 Temperature Pulse Rate 63 Respiratory Rate 21 Blood Pressure 126/68 127/73 Pulse Oximetry 99 Oxygen Delivery Method 01/29/23 15:00 01/29/23 15:01 01/29/23 15:01 Temperature Pulse Rate 62 63 Respiratory Rate 21 21 Blood Pressure 120/81 Pulse Oximetry 99 98 Oxygen Delivery Method 01/29/23 15:18 01/29/23 15:19 01/29/23 15:19 Temperature Pulse Rate 71 66 Respiratory Rate 18 18 Blood Pressure 134/75 Pulse Oximetry 98 99 Oxygen Delivery Method 01/29/23 15:30 01/29/23 15:30 01/29/23 15:45 Temperature Pulse Rate 66 65 Respiratory Rate 20 28 H Blood Pressure 147/79 H Pulse Oximetry 95 98 Oxygen Delivery Method Room Air 01/29/23 16:00 01/29/23 16:01 01/29/23 16:01 Temperature Pulse Rate 60 62 Respiratory Rate 23 22 Blood Pressure 126/69 Pulse Oximetry 99 100 Oxygen Delivery Method 01/29/23 16:15 01/29/23 16:30 01/29/23 16:31 Temperature Pulse Rate 63 57 L Respiratory Rate 21 18 Blood Pressure 132/70 Pulse Oximetry 100 100 Oxygen Delivery Method 01/29/23 16:31 01/29/23 16:48 01/29/23 16:55 Temperature Pulse Rate 61 72 68 Respiratory Rate 27 H 22 26 H Blood Pressure Pulse Oximetry 99 97 100 Oxygen Delivery Method 01/29/23 16:55 01/29/23 17:00 01/29/23 17:00 Temperature Pulse Rate 69 Respiratory Rate 21 Blood Pressure 134/80 122/89 Pulse Oximetry 100 Oxygen Delivery Method Room Air 01/29/23 17:00 01/29/23 17:15 01/29/23 17:30 Temperature Pulse Rate 62 77 Respiratory Rate 22 Blood Pressure 122/89 129/80 Pulse Oximetry 98 Oxygen Delivery Method 01/29/23 17:30 01/29/23 17:45 01/29/23 18:00 Temperature Pulse Rate 62 67 Respiratory Rate 25 H 36 H Blood Pressure 131/84 Pulse Oximetry 100 98 Oxygen Delivery Method Room Air 01/29/23 18:00 01/29/23 18:15 01/29/23 18:30 Temperature Pulse Rate 62 61 63 Respiratory Rate 24 28 H 37 H Blood Pressure Pulse Oximetry 99 99 99 Oxygen Delivery Method 01/29/23 18:45 Temperature Pulse Rate 62 Respiratory Rate 23 Blood Pressure Pulse Oximetry 100 Oxygen Delivery Method <Jose Cortez, DO - Last Filed: 01/29/23 21:28> Orders Ordered: Discontinued Medications Alprazolam (Alprazolam 0.5 Mg Tablet) 0.5 mg PO NOW ONE Stop: 01/29/23 17:47 Last Admin: 01/29/23 17:57 Dose: 0.5 mg Documented By: KAVITA Aspirin (Aspirin 81 Mg Chew Tab) 324 mg PO NOW ONE Stop: 01/29/23 16:58 Last Admin: 01/29/23 17:16 Dose: 324 mg Documented By: SHIMA Heparin Sodium (Porcine) (Heparin 5,000 Unit/Ml Vial) 4,000 unit 80 unit/kg (6100 unit) IV NOW ONE Stop: 01/29/23 16:22 Last Admin: 01/29/23 17:11 Dose: 4,000 unit Documented By: SHIMA Sodium Chloride (Normal Saline 0.9%) 1,000 mls @ 1,000 mls/hr IV BOLUS ONE Stop: 01/29/23 15:55 Last Infusion: 01/29/23 16:58 Dose: 0 mls/hr Documented By: Admin: 01/29/23 16:01 Dose: 1,000 mls/hr Documented By: KAVITA Heparin Sodium/Dextrose (Heparin Drip) 25,000 unit in 500 mls @ 18.398 mls/hr IV CONT ZOE; Protocol Last Admin: 01/29/23 17:12 Dose: 12 units/kg/hr, 18.398 mls/hr Documented By: SHIMA Co-signed By: RORY Lorazepam (Lorazepam 2 Mg/Ml Inj) 0.5 mg IV NOW ONE Stop: 01/29/23 18:49 Last Admin: 01/29/23 19:00 Dose: 0.5 mg Documented By: KAVITA Metoprolol Succinate (Metoprolol Er 25 Mg Tablet) 25 mg PO NOW ONE Stop: 01/29/23 16:57 Last Admin: 01/29/23 17:00 Dose: 25 mg Documented By: [facility] Vital Signs Vital signs: Vital Signs - 8 hr 01/29/23 14:05 01/29/23 14:26 01/29/23 14:27 Temperature 97.8 F Pulse Rate 71 66 65 Respiratory Rate 16 20 Blood Pressure 155/87 H Pulse Oximetry 99 98 97 Oxygen Delivery Method Room Air 01/29/23 14:27 01/29/23 14:30 01/29/23 14:30 Temperature Pulse Rate 63 Respiratory Rate 21 Blood Pressure 126/68 127/73 Pulse Oximetry 99 Oxygen Delivery Method 01/29/23 15:00 01/29/23 15:01 01/29/23 15:01 Temperature Pulse Rate 62 63 Respiratory Rate 21 21 Blood Pressure 120/81 Pulse Oximetry 99 98 Oxygen Delivery Method 01/29/23 15:18 01/29/23 15:19 01/29/23 15:19 Temperature Pulse Rate 71 66 Respiratory Rate 18 18 Blood Pressure 134/75 Pulse Oximetry 98 99 Oxygen Delivery Method 01/29/23 15:30 01/29/23 15:30 01/29/23 15:45 Temperature Pulse Rate 66 65 Respiratory Rate 20 28 H Blood Pressure 147/79 H Pulse Oximetry 95 98 Oxygen Delivery Method Room Air 01/29/23 16:00 01/29/23 16:01 01/29/23 16:01 Temperature Pulse Rate 60 62 Respiratory Rate 23 22 Blood Pressure 126/69 Pulse Oximetry 99 100 Oxygen Delivery Method 01/29/23 16:15 01/29/23 16:30 01/29/23 16:31 Temperature Pulse Rate 63 57 L Respiratory Rate 21 18 Blood Pressure 132/70 Pulse Oximetry 100 100 Oxygen Delivery Method 01/29/23 16:31 01/29/23 16:48 01/29/23 16:55 Temperature Pulse Rate 61 72 68 Respiratory Rate 27 H 22 26 H Blood Pressure Pulse Oximetry 99 97 100 Oxygen Delivery Method 01/29/23 16:55 01/29/23 17:00 01/29/23 17:00 Temperature Pulse Rate 69 Respiratory Rate 21 Blood Pressure 134/80 122/89 Pulse Oximetry 100 Oxygen Delivery Method Room Air 01/29/23 17:00 01/29/23 17:15 01/29/23 17:30 Temperature Pulse Rate 62 77 Respiratory Rate 22 Blood Pressure 122/89 129/80 Pulse Oximetry 98 Oxygen Delivery Method 01/29/23 17:30 01/29/23 17:45 01/29/23 18:00 Temperature Pulse Rate 62 67 Respiratory Rate 25 H 36 H Blood Pressure 131/84 Pulse Oximetry 100 98 Oxygen Delivery Method Room Air 01/29/23 18:00 01/29/23 18:15 01/29/23 18:30 Temperature Pulse Rate 62 61 63 Respiratory Rate 24 28 H 37 H Blood Pressure Pulse Oximetry 99 99 99 Oxygen Delivery Method 01/29/23 18:45 Temperature Pulse Rate 62 Respiratory Rate 23 Blood Pressure Pulse Oximetry 100 Oxygen Delivery Method MDM - Chest Pain <Crow Rosales MD - Last Filed: 02/15/23 22:20> Lab Data 01/29/23 14:02 01/29/23 14:02 Labs: Lab Results 01/29/23 01/29/23 01/29/23 Range/Units 14:02 14:02 14:02 WBC 12.9 H (4.5-11.0) X10^3/uL RBC 4.97 (4.5-5.9) X10^6/uL Hgb 15.3 (13.5-17.5) g/dL Hct 45.2 (41-53) % MCV 91.1 (80-100) fL MCH 30.9 (26-34) PG MCHC 33.9 (30-36) % RDW 13.6 (11.6-14.8) % Plt Count 202 (150-400) X10^3/uL Neut % (Auto) 81.5 H (50-75) % Lymph % (Auto) 12.1 L (25-40) % [place] % (Auto) 5.4 (3-14) % Eos % (Auto) 0.7 L (2-4) % Baso % (Auto) 0.3 (0-2) % Neut # (Auto) 92263 H (4802-8573) /uL Lymph # (Auto) 1600 (2227-9256) /uL [place] # (Auto) 700 (0-900) /uL Eos # (Auto) 100 (0-450) /uL Baso # (Auto) 0 (0-100) /uL PT 12.2 (10.1-12.7) SECONDS INR 1.1 (0.9-1.3) APTT 31 (26-36) SECONDS Sodium 136 L (137-145) mmol/L Potassium 4.4 (3.4-5.1) mmol/L Chloride 101 (98-107) mmol/L Carbon Dioxide 25 (22-32) mmol/L BUN 20 (9-20) mg/dL Creatinine 0.63 L (0.66-1.25) mg/dL Estimated GFR > 60 (>60) mL/min BUN/Creatinine Ratio 31.7 H (6-22) Glucose 291 H (80-110) mg/dL Calcium 9.0 (8.4-10.2) mg/dL Magnesium 1.6 (1.6-2.3) mg/dL Total Bilirubin 0.4 (0.2-1.3) mg/dL AST 35 (17-59) IU/L ALT 23 (<50) IU/L Alkaline Phosphatase 48 (38-126) U/L Total Creatine Kinase 183 H (55-170) U/L CK-MB (CK-2) 7.76 H (<2.37) ng/mL CK-MB (CK-2) Rel Index 4.2 (1.5-5.0) % Troponin I 0.912 H* (0.01-0.034) ng/mL NT-Pro-B Natriuret Pep (<125) pg/mL Total Protein 7.6 (6.3-8.2) g/dL Albumin 4.5 (3.5-5.0) g/dL Globulin 3.1 (1.7-4.1) g/dL Albumin/Globulin Ratio 1.5 (1.0-2.8) Lipase 71 (23-300) U/L SARS-CoV-2 (PCR) (Negative) 01/29/23 01/29/23 01/29/23 Range/Units 14:02 15:43 16:05 WBC (4.5-11.0) X10^3/uL RBC (4.5-5.9) X10^6/uL Hgb (13.5-17.5) g/dL Hct (41-53) % MCV (80-100) fL MCH (26-34) PG MCHC (30-36) % RDW (11.6-14.8) % Plt Count (150-400) X10^3/uL Neut % (Auto) (50-75) % Lymph % (Auto) (25-40) % [place] % (Auto) (3-14) % Eos % (Auto) (2-4) % Baso % (Auto) (0-2) % Neut # (Auto) (7322-0989) /uL Lymph # (Auto) (2542-1994) /uL [place] # (Auto) (0-900) /uL Eos # (Auto) (0-450) /uL Baso # (Auto) (0-100) /uL PT (10.1-12.7) SECONDS INR (0.9-1.3) APTT (26-36) SECONDS Sodium (137-145) mmol/L Potassium (3.4-5.1) mmol/L Chloride (98-107) mmol/L Carbon Dioxide (22-32) mmol/L BUN (9-20) mg/dL Creatinine (0.66-1.25) mg/dL Estimated GFR (>60) mL/min BUN/Creatinine Ratio (6-22) Glucose (80-110) mg/dL Calcium (8.4-10.2) mg/dL Magnesium (1.6-2.3) mg/dL Total Bilirubin (0.2-1.3) mg/dL AST (17-59) IU/L ALT (<50) IU/L Alkaline Phosphatase (38-126) U/L Total Creatine Kinase (55-170) U/L CK-MB (CK-2) (<2.37) ng/mL CK-MB (CK-2) Rel Index (1.5-5.0) % Troponin I 8.550 H* (0.01-0.034) ng/mL NT-Pro-B Natriuret Pep 55 (<125) pg/mL Total Protein (6.3-8.2) g/dL Albumin (3.5-5.0) g/dL Globulin (1.7-4.1) g/dL Albumin/Globulin Ratio (1.0-2.8) Lipase (23-300) U/L SARS-CoV-2 (PCR) Negative (Negative) Imaging Data Chest x-ray: Radiologist's Impression: PROCEDURE:? XR CHEST 1V ? INDICATIONS:? chest pain ? TECHNIQUE:? One view of the chest was acquired.? ? COMPARISON:? None. ? FINDINGS:? ? Surgical changes and devices:? Partially visualized cervical fixation plate. ? Lungs and pleura:? Lungs are clear.? No pleural effusions or pneumothorax.? ? Mediastinum:? Mediastinal contours appear normal.? Heart size is normal.? ? Bones and chest wall:? No suspicious bony lesions.? Overlying soft tissues appear unremarkable.? ? IMPRESSION:? No acute pulmonary process. ? ? Dictated by: Court Vázquez M.D. on 01/29/2023 at 15:08 ? ? Approved by: Court Vázquez M.D. on 01/29/2023 at 15:08 ? CT angiogram chest abdomen and pelvis: Radiologist's Impression: PROCEDURE:? CT ANGIO CHEST ABDOMEN PELVIS ? INDICATIONS:? Dissection protocol/chest abdominal pain ? TECHNIQUE:? Precontrast 5 mm thick sections acquired from the lung apices to the iliac crests.? After the administration of intravenous contrast, 2.5 mm thick sections again acquired from the lung apices to the iliac crests.? Maximum intensity projection (MIP) oblique sagittal and coronal reformats were then acquired.? For radiation dose reduction, the following was used:? automated exposure control.? ? COMPARISON:? None. ? FINDINGS:? Image quality:? Excellent.? ? AORTA:? There are no areas of hemodynamically significant stenosis, vascular occlusion, aneurysmal dilation or dissection.? Scattered areas of mild atherosclerotic calcification are noted within the abdominal infrarenal aorta. ? CHEST:? Lungs and pleura:? No acute airspace opacities.? No pleural effusions or pneumothorax.? Central and peripheral airways are patent and normal in caliber.? Emphysematous changes are present.? Some reticular opacities are present likely related to fibrotic change. ? Mediastinum:? Heart size is normal.? No pericardial effusion.? No mediastinal or hilar adenopathy by size criteria.? Central pulmonary arteries are normal in size.? Esophagus is normal in caliber.? No hiatal hernias.? ? Bones and chest wall:? No axillary adenopathy by size criteria.? Thyroid gland is unremarkable .? No suspicious bony lesions.? No vertebral body compression fractures.? ? ? ABDOMEN:? Vasculature:? Celiac trunk and mesenteric arteries are patent.? Renal arteries are also patent.? ? Solid organs:? Liver is enlarged with steatosis.? Gallbladder is unremarkable .? Biliary system is non dilated.? Pancreas enhances normally.? Spleen is normal in size and enhancement.? No adrenal nodules.? Both kidneys are normal in size and enhancement, without hydronephrosis.? ? Peritoneum and bowel:? No free fluid or air.? Bowel loops are normal in caliber and wall thickness.? Colonic diverticula are present. ? Nodes and vessels:? No retroperitoneal or mesenteric adenopathy by size criteria.? Inferior vena cava is normal in morphology.? ? Miscellaneous:? No ventral hernias.? ? ? PELVIS:? Genitourinary:? Bladder wall thickness is normal.? ? Miscellaneous:? No inguinal hernias or adenopathy.? No ventral hernias.? ? Bones:? No suspicious bony lesions.? No vertebral body compression fractures.? ? ? IMPRESSION:? ? Aorta demonstrates mild atherosclerotic calcifications.? No evidence of dissection or other hemodynamic process. ? Dictated by: Court Vázquez M.D. on 01/29/2023 at 15:51 ? ? Approved by: Court Vázquez M.D. on 01/29/2023 at 15:58 ? [facility] Narrative Medical decision making narrative: After history and exam CBC CMP troponin chest x-ray CT chest abdomen pelvis angiogram normal saline ordered [facility] CC: Chest pain Complicating co-morbidities: Smoker, history of diabetes Data collected from: Patient and Medical records reviewed: No recent visits for this complaint Differential considered: Includes but not limited to STEMI non-STEMI acute coronary syndrome aortic dissection/aneurysm Exam documented above, pertinent findings include: Nontender abdomen Lab Test results independently reviewed as above. Pertinent findings: Troponin 0.9 hemoglobin 15 hematocrit 45 white cell count 12.9 BUN 20 creatinine 0.63 GFR greater than 60 repeat troponin 8.5 Independently reviewed EKG as above normal sinus rhythm rate [address] elevation or depression, 2nd EKG no ST elevation Imaging studies independently reviewed: Chest x-ray no acute process, CT angio chest abdomen pelvis no acute process Consultations: 4:50 [address].. [address]. Dillon, cardiology with [facility], on-call for us. At this time no Plavix. Patient has already received aspirin. Recommends metoprolol. Patient already on heparin. Needs to transfer for facility with heart catheterization. 6:15 p.m.. Spoke with [facility] transfer Center, they will arrange to speak with solidworks designer, they have no beds 6:00 p.m.. Spoke with cardiology Dr. Barrera with [facility]. He will follow in consult. 6:[address] Szymanski, hospitalist, [facility]. He will admit patient. 7:07 p.m.. Spoke with cardiology at [facility] dr hermosillo, she will see patient in consult if hospitalist admits patient will likely need to go to [facility] Treatments: . Patient received aspirin and heparin Re-evaluations: 5:00 p.m.. Spoke with patient my discussion with Cardiology. He has been chest pain-free since 4:00 p.m.. He does understand it non-STEMI. And need for transfer for heart catheterization Discussion: Appropriate for transfer for need of heart catheterization. Patient already started on heparin. Has had aspirin. Cardiology services was consulted. Diagnosis: Acute non-STEMI <Jose Cortez, - Last Filed: 01/29/23 21:28> Lab Data Labs: Lab Results 01/29/23 01/29/23 01/29/23 Range/Units 14:02 14:02 14:02 WBC 12.9 H (4.5-11.0) X10^3/uL RBC 4.97 (4.5-5.9) X10^6/uL Hgb 15.3 (13.5-17.5) g/dL Hct 45.2 (41-53) % MCV 91.1 (80-100) fL MCH 30.9 (26-34) PG MCHC 33.9 (30-36) % RDW 13.6 (11.6-14.8) % Plt Count 202 (150-400) X10^3/uL Neut % (Auto) 81.5 H (50-75) % Lymph % (Auto) 12.1 L (25-40) % [place] % (Auto) 5.4 (3-14) % Eos % (Auto) 0.7 L (2-4) % Baso % (Auto) 0.3 (0-2) % Neut # (Auto) 94653 H (3452-6964) /uL Lymph # (Auto) 1600 (9502-9899) /uL [place] # (Auto) 700 (0-900) /uL Eos # (Auto) 100 (0-450) /uL Baso # (Auto) 0 (0-100) /uL PT 12.2 (10.1-12.7) SECONDS INR 1.1 (0.9-1.3) APTT 31 (26-36) SECONDS Sodium 136 L (137-145) mmol/L Potassium 4.4 (3.4-5.1) mmol/L Chloride 101 (98-107) mmol/L Carbon Dioxide 25 (22-32) mmol/L BUN 20 (9-20) mg/dL Creatinine 0.63 L (0.66-1.25) mg/dL Estimated GFR > 60 (>60) mL/min BUN/Creatinine Ratio 31.7 H (6-22) Glucose 291 H (80-110) mg/dL Calcium 9.0 (8.4-10.2) mg/dL Magnesium 1.6 (1.6-2.3) mg/dL Total Bilirubin 0.4 (0.2-1.3) mg/dL AST 35 (17-59) IU/L ALT 23 (<50) IU/L Alkaline Phosphatase 48 (38-126) U/L Total Creatine Kinase 183 H (55-170) U/L CK-MB (CK-2) 7.76 H (<2.37) ng/mL CK-MB (CK-2) Rel Index 4.2 (1.5-5.0) % Troponin I 0.912 H* (0.01-0.034) ng/mL NT-Pro-B Natriuret Pep (<125) pg/mL Total Protein 7.6 (6.3-8.2) g/dL Albumin 4.5 (3.5-5.0) g/dL Globulin 3.1 (1.7-4.1) g/dL Albumin/Globulin Ratio 1.5 (1.0-2.8) Lipase 71 (23-300) U/L SARS-CoV-2 (PCR) (Negative) 04/21/23 04/21/23 04/21/23 Range/Units 14:02 15:43 16:05 WBC (4.5-11.0) X10^3/uL RBC (4.5-5.9) X10^6/uL Hgb (13.5-17.5) g/dL Hct (41-53) % MCV (80-100) fL MCH (26-34) PG MCHC (30-36) % RDW (11.6-14.8) % Plt Count (150-400) X10^3/uL Neut % (Auto) (50-75) % Lymph % (Auto) (25-40) % [place] % (Auto) (3-14) % Eos % (Auto) (2-4) % Baso % (Auto) (0-2) % Neut # (Auto) (3967-3421) /uL Lymph # (Auto) (1565-0653) /uL [place] # (Auto) (0-900) /uL Eos # (Auto) (0-450) /uL Baso # (Auto) (0-100) /uL PT (10.1-12.7) SECONDS INR (0.9-1.3) APTT (26-36) SECONDS Sodium (137-145) mmol/L Potassium (3.4-5.1) mmol/L Chloride (98-107) mmol/L Carbon Dioxide (22-32) mmol/L BUN (9-20) mg/dL Creatinine (0.66-1.25) mg/dL Estimated GFR (>60) mL/min BUN/Creatinine Ratio (6-22) Glucose (80-110) mg/dL Calcium (8.4-10.2) mg/dL Magnesium (1.6-2.3) mg/dL Total Bilirubin (0.2-1.3) mg/dL AST (17-59) IU/L ALT (<50) IU/L Alkaline Phosphatase (38-126) U/L Total Creatine Kinase (55-170) U/L CK-MB (CK-2) (<2.37) ng/mL CK-MB (CK-2) Rel Index (1.5-5.0) % Troponin I 8.550 H* (0.01-0.034) ng/mL NT-Pro-B Natriuret Pep 55 (<125) pg/mL Total Protein (6.3-8.2) g/dL Albumin (3.5-5.0) g/dL Globulin (1.7-4.1) g/dL Albumin/Globulin Ratio (1.0-2.8) Lipase (23-300) U/L SARS-CoV-2 (PCR) Negative (Negative) MDM Narrative Medical decision making narrative: After history and exam CBC CMP troponin chest x-ray CT chest abdomen pelvis angiogram normal saline ordered MDM CC: Chest pain Complicating co-morbidities: Smoker, history of diabetes Data collected from: Patient and Medical records reviewed: No recent visits for this complaint Differential considered: Includes but not limited to STEMI non-STEMI acute coronary syndrome aortic dissection/aneurysm Exam documented above, pertinent findings include: Nontender abdomen Lab Test results independently reviewed as above. Pertinent findings: Troponin 0.9 hemoglobin 15 hematocrit 45 white cell count 12.9 BUN 20 creatinine 0.63 GFR greater than 60 repeat troponin 8.5 Independently reviewed EKG as above normal sinus rhythm rate [address] elevation or depression, 2nd EKG no ST elevation Imaging studies independently reviewed: Chest x-ray no acute process, CT angio chest abdomen pelvis no acute process Consultations: 4:50 p.m. p.[address].. Spoke with Dr. Dillon, cardiology with [facility], on-call for us. At this time no Plavix. Patient has already received aspirin. Recommends metoprolol. Patient already on heparin. Needs to transfer for facility with heart catheterization. 6:15 p.m.. Spoke with [facility] transfer Center, they will arrange to speak with solidworks designer, they have no beds 6:00 p.m.. Spoke with cardiology Dr. Barrera with [facility]. He will follow in consult. 6:[address] Szymanski, hospitalist, [facility]. He will admit patient. 7:07 p.m.. Spoke with cardiology at [facility] dr hermosillo, she will see patient in consult if hospitalist admits patient will likely need to go to [facility] Treatments: . Patient received aspirin and heparin Re-evaluations: 5:00 p.m.. Spoke with patient my discussion with Cardiology. He has been chest pain-free since 4:00 p.m.. He does understand it non-STEMI. And need for transfer for heart catheterization Discussion: Appropriate for transfer for need of heart catheterization. Patient already started on heparin. Has had aspirin. Cardiology services was consulted. Diagnosis: Acute non-STEMI Dr cortez: Received turned over. Reviewed patient's history and physical exam and workup up to this point. Patient is on a heparin drip. Dr. Rosales has consulted with multiple people to include cardiology and hospitalist at [facility] who accept the patient in transfer. Patient is currently stable for transport. Will transport to [facility] for further evaluation and treatment. Critical Care Time <Crow Rosales MD - Last Filed: 02/15/23 22:20> Critical Care Time Attestation: Critical Care Time 35 minutes: Critical care time is separate from other billable procedures. This critical care time includes consultation with family and other consulting doctors, review of records, and interpretation of data from labs, EKGs, imaging, etc. Discharge Plan Departure Patient Disposition: [facility] Clinical Impression: Non-ST elevated myocardial infarction (non-STEMI) Prescriptions: No Action rosuvastatin 10 mg tablet 10 mg PO DAILY Qty: 90 3RF sertraline 100 mg tablet 100 mg PO DAILY Qty: 90 0RF buspirone 15 mg tablet 15 mg PO TID Qty: 180 3RF glipizide 5 mg tablet 5 mg PO BID Qty: 180 3RF metformin 850 mg tablet 850 mg PO BID Qty: 180 3RF clopidogrel 75 mg tablet 75 mg PO DAILY losartan 25 mg tablet 25 mg PO DAILY magnesium oxide 400 mg magnesium capsule 400 mg PO BID metoprolol succinate 25 mg tablet extended release 24 hr 12.5 mg PO DAILY Referrals: Vinod Khan MD [Primary Care Provider] -
[2023-01-29 15:05] LABS: CKMB % Relative Index 4.2 % (1.5-5.0); Creatine Kinase MB 7.76 ng/mL (<2.37)
[2023-01-29] MEDS: SODIUM CHLORIDE 0.9% 1,000 ML 1000 ML IV (16:01)
[2023-01-29 16:10] LABS: NT-proBNP (BNP-Adult 18+) 55 pg/mL (<125)
[2023-01-29 16:39] LABS: COVID19 -Nasal RAPID Negative (Negative)
[2023-01-29] MEDS: METOPROLOL ER 25 MG TABLET PO (17:00)
[2023-01-29] MEDS: HEPARIN 5,000 UNIT/ML VIAL 4000 UNIT IV (17:11)
[2023-01-29] MEDS: HEPARIN DRIP 25,000 UNIT/500 ML IV.SOLN 18.398 UNIT IV (17:12)
[2023-01-29] MEDS: ASPIRIN 81 MG CHEW TAB 324 MG PO (17:16)
[2023-01-29] MEDS: ALPRAZolam 0.5 MG TABLET PO (17:57)
--- NOTE | 2023-01-29 18:48 | PC.NURSE ---
PAINT STOCK CLERK Note: Attempted to look for places to transfer pt to and go the following responses: [address] [facility] spoke with Luis and not hopeful for placement at the moment. On waitlist, facesheet sent and images were pushed [address] [facility] spoke with Keo. Facesheet and images were pushed. 1555 Prov. spoke with Daija and pushed images and sent facesheet. Pt was seen at this facility before. 1621 /[facility] spoke didnt get the name of tranfer center. Facesheet was sent and images were pushed.
[2023-01-29] MEDS: LORazepam 2 MG/ML INJ 0.5 MG IV (19:00)
--- NOTE | 2023-01-29 19:00 | PC.NURSE ---
Noted 8 beat run of ventricular ectopy. Pt unaware and denies chest pain. Dr. Rosales aware- no new orders. Primary nurses (Tavo/Nyla) aware
--- NOTE | 2023-01-29 20:08 | PC.NURSE ---
TRIMMING ASSEMBLER note: [facility] [address] spoke to Dave. Don't have a bed currently. Put on waitlist.
--- NOTE | 2023-02-11 09:57 | PC.NURSE ---
Late Entry- per RN this patient was transfered to another hospital with Heparin drip infusing 01/29 @ [id number]
== END 2023-01-29 22:49 | disposition short-term general hospital (02) ==
PROVIDERS: Emergency Medicine; Emergency Provider Emergency Medicine; PCP Internal Medicine
DX: I21.4 Non-ST elevation (NSTEMI) myocardial infarction (principal); R07.9 Chest pain, unspecified; Z20.822 Contact with and (suspected) exposure to COVID-19
CPT/HCPCS: 36415; 71045; 71275; 74174; 80053; 82550; 82553; 83690; 83735; 83880; 84484; 85025; 85610; 85730; 87635; 93005; 93010; 96361; 96365; 96366; 96375; 99285; C9803; J1644; J2060; Q9967

== ENCOUNTER 2023-04-14 14:15 | Outpatient (RCR) | payer OTHER, SELFPAY | END 2023-04-14 16:15 | LOC: CAR 14:15 | PROVIDERS: PCP Internal Medicine; Referring Provider Internal Medicine; Visit Provider Internal Medicine | DX: I21.4 Non-ST elevation (NSTEMI) myocardial infarction (principal) | CPT/HCPCS: 93798 ==

== ENCOUNTER → 2023-07-12 14:58 | Outpatient (CLI) | payer OTHER, SELFPAY ==
[2023-07-12 16:54] LABS: Hemoglobin A1C% w Est Avg Glu 6.5 % (4.0-6.0)
[2023-07-12 17:04] LABS: Aspartate Aminotransferase 24 IU/L (17-59); BUN Creatinine Ratio 18.6 (6-22); Blood Urea Nitrogen 13 mg/dL (9-20); Calcium 9.9 mg/dL (8.4-10.2); Carbon Dioxide 27 mmol/L (22-32); Chloride 102 mmol/L (98-107); Cholesterol 197 mg/dL (140-199); Estimated Glomerular Filt Rate > 60 mL/min (>60); Glucose 107 mg/dL (80-110); HDL Cholesterol 49 mg/dL (40-60); HEMOLYSIS < 15 (0-50); Potassium 4.8 mmol/L (3.4-5.1); Sodium 138 mmol/L (137-145); Triglycerides 422 mg/dL (35-150)
== END ==
PROVIDERS: PCP Internal Medicine; Referring Provider Internal Medicine; Visit Provider Internal Medicine
DX: E11.42 Type 2 diabetes mellitus with diabetic polyneuropathy (principal); E78.2 Mixed hyperlipidemia
CPT/HCPCS: 36415; 80048; 80061; 83036; 84450

== ENCOUNTER → 2023-09-21 12:39 | Outpatient (CLI) | payer OTHER, SELFPAY ==
--- NOTE | 2023-09-21 12:41 | DI.RAD.S_ITS ---
PROCEDURE: XR CERVICAL SPINE 2V OR 3V INDICATIONS: neck pain TECHNIQUE: 3 view(s) of the cervical spine were acquired. COMPARISON: [facility], CR, SPINE CERVICAL 2 OR 3VW, 03/15/2014, 9:30. [facility], CR, SPINE CERVICAL 1VW, 02/07/2014, 10:37. [facility], CR, SPINE CERVICAL 1VW, 12/27/2013, 8:53. [facility], CR, SPINE CERVICAL 1VW, 12/26/2013, 7:59. [facility], MR, C-SPINE W&WO CONTRAST, 09/24/2015, 16:51. [facility], CT, C-SPINE WITHOUT CONTRAST, 06/27/2015, 14:05. FINDINGS: Bones: No fractures or dislocations to the T1 level. The lateral masses of C1 appear intact on the odontoid view. No suspicious bony lesions. Postsurgical changes with discectomy and anterior fusion at C4-C7. Surgical hardware appear intact. Degenerative disease, severe at C7-T1, and mild at C3-C4. There is facet arthropathy, severe at C3-C4 bilaterally, C4-C5 and C6-C7 on the left, moderate at multiple other levels. Soft tissues: No prevertebral soft tissue swelling. IMPRESSION: 1. Postsurgical changes with discectomy and anterior fusion at C4-C7. 2. Moderate degenerative disease as described. 3. Severe facet arthropathy as described. Dictated by: David Fatima M.D. on 09/21/2023 at 15:55 Approved by: David Fatima M.D. on 09/21/2023 at 16:01
== END ==
PROVIDERS: PCP Internal Medicine; Referring Provider Internal Medicine; Visit Provider Internal Medicine
DX: M47.812 Spondylosis without myelopathy or radiculopathy, cervical region (principal); M50.31 Other cervical disc degeneration, high cervical region; Z98.1 Arthrodesis status
CPT/HCPCS: 72040

== ENCOUNTER → 2023-11-16 07:45 | Outpatient (CLI) | payer OTHER, SELFPAY ==
--- NOTE | 2023-11-16 07:46 | DI.NM.S_ITS ---
PROCEDURE: NM GASTRIC EMPTYING STUDY RADIOPHARMACEUTICAL: 1.0 mCi Tc-99m sulfur colloid in an egg sandwich. INDICATIONS: chronic nausea, assess for gastroparesis TECHNIQUE: A Tc-99m labeled sulfur colloid labeled egg sandwich or oatmeal was served to the patient. Anterior and posterior planar images of the abdomen were obtained at 0 minutes and 30 minutes, then at hourly intervals up to 4 hours. The patient was upright and ambulating during the interval. COMPARISON: None. FINDINGS: The stomach has normal size, morphology, and position. There is normal emptying of solid gastric contents from the stomach by visual inspection. No gastroesophageal reflux is visualized. The percentage of tracer retained at specific time points are as follows: Time point Percent gastric retention Normal range 30 minutes 83% 70% or more 1 hour 47% 30% to 90% 2 hours 14% 60% or less 3 hours 3% 30% or less 4 hours - 10% or less IMPRESSION: Normal gastric emptying study. Dictated by: David Fatima M.D. on 11/16/2023 at 12:36 Approved by: David Fatima M.D. on 11/16/2023 at 12:47
== END ==
LOC: NUCM 07:46
PROVIDERS: Family Provider Internal Medicine; PCP Internal Medicine; Referring Provider Family Medicine; Visit Provider Family Medicine
DX: R11.0 Nausea (principal)
CPT/HCPCS: 78264; A9541

== ENCOUNTER 2023-11-23 00:19 | Emergency (ER) | payer OTHER, SELFPAY ==
[2023-11-23] VITALS (10 sets, daily range): BP systolic 103–151; BP diastolic 63–92; PULSE 72–86; RESP 16; TEMP 36.6; O2SAT 91–97; BMI 23.7
--- NOTE | 2023-11-23 01:03 | DI.CT.S_ITS ---
PROCEDURE: CT ABDOMEN PELVIS W CON INDICATIONS: RUQ ABD PAIN, N/V TECHNIQUE: After the administration of intravenous contrast, axial sections acquired from the lung bases to the pubic symphysis. Coronal and sagittal reformats were performed. For radiation dose reduction, the following was used: automated exposure control, adjustment of mA and/or kV according to patient size. COMPARISON: [facility], CT, ABDOMEN/PELVIS WITH CONTRAST, 11/02/2016, 9:17. FINDINGS: Image quality: Diagnostic. Lower Chest: Emphysematous changes. Coronary artery calcifications. ABDOMEN: Liver: No solid mass. Hepatic steatosis. Gallbladder: No radiopaque gallstones or wall thickening. Biliary ducts: No biliary dilation. Pancreas: No ductal dilation. Spleen: Size is within normal limits. Adrenal Glands: No adrenal nodules. Kidneys and Ureters: No hydronephrosis. No solid mass. No complex renal cystic lesion which requires follow up. Nonobstructive left inferior pole 3-4 mm calculus. Stomach and Bowel: Normal colonic caliber, without significant wall thickening. Sigmoid colon diverticulosis with out acute inflammation. Peritoneum: No abnormal intraperitoneal fluid. No free air. Ventral Wall: No significant ventral hernia. Abdominal Nodes: No retroperitoneal or mesenteric adenopathy by size criteria. Vessels: Aorta and inferior vena cava are normal in size. Aorto bi iliac atherosclerotic calcifications. PELVIS: Pelvic Organs: Unremarkable. Bladder: No bladder wall thickening, accounting for underdistention. Pelvic Nodes: No enlarged lymph nodes. Miscellaneous: No inguinal hernias are seen. Bones: Grade 1 anterolisthesis of L3 on L4. Moderate multilevel discogenic degenerative changes of the visualized spine. No acute or suspicious osseous abnormality. IMPRESSION: Colonic diverticulosis without CT evidence of acute diverticulitis. Hepatic steatosis. Nonobstructive left inferior pole 3-4 mm calculus. No hydroureteronephrosis. Approved by: Tiesha Chapman M.D. on 11/23/2023 at 3:10
--- NOTE | 2023-11-23 01:04 | ED_ITS ---
HPI - Abdominal Pain General Chief Complaint: Abdominal Pain Stated Complaint: abd pain rt side Time Seen by Provider: 11/23/23 00:25 History of Present Illness HPI narrative: 68-year-old male with history of persistent nausea, coronary disease, brn-hmnahlv-eyvlfwhat diabetes presents by private vehicle from home for 1 day of right upper quadrant abdominal pain. States that around 5:00 p.m. he was sitting in his computer chair when he felt symptoms with worsening of his chronic nausea. Symptoms persisted and so he decided to present for evaluation. Denies history of intra-abdominal surgeries. He states he recently had a gastric emptying study for his chronic nausea that was ?normal?. Related Data Home Medications Medication Instructions Recorded Confirmed losartan 25 mg tablet 25 mg PO DAILY heart attack 02/05/23 11/22/23 blood sugar diagnostic (Accu-Chek #10 ea 04/14/23 11/22/23 Guide test strips) hydroxyzine HCl 25 mg tablet 25 mg PO BID Anx/depression 09/21/23 11/22/23 ezetimibe 10 mg tablet 10 mg PO DAILY 09/29/23 11/22/23 duloxetine 60 mg capsule,delayed 60 mg PO BID 10/26/23 11/22/23 release trazodone 100 mg tablet 100 mg PO DAILY 11/10/23 11/22/23 Previous Rx's Medication Instructions Recorded glipizide 5 mg tablet 5 mg PO BID #180 tabs 12/10/22 metformin 850 mg tablet 850 mg PO BID #180 tabs 12/10/22 clopidogrel 75 mg tablet 75 mg PO DAILY #90 tabs 06/21/23 buspirone 15 mg tablet 15 mg PO TID #180 tabs 08/16/23 methocarbamol 500 mg tablet 500 mg PO TID #60 tabs 09/21/23 rosuvastatin 10 mg tablet 10 mg PO DAILY #90 tabs 10/05/23 famotidine 20 mg tablet (Pepcid) 20 mg PO DAILY #30 tabs 11/02/23 cyclobenzaprine 10 mg tablet 10 mg PO TID #90 tabs 11/10/23 pregabalin 25 mg capsule 25 mg PO BEDTIME #30 caps 11/10/23 omeprazole 20 mg capsule,delayed 20 mg PO DAILY #30 caps 11/22/23 release Allergies Allergy/AdvReac Type Severity Reaction Status Date / Time lisinopril Allergy Severe Swelling Verified 11/22/23 15:16 of Lip/Tongue/Throat cefaclor [CEFACLOR] Allergy Unknown rash Verified 11/22/23 15:16 Review of Systems Review of Systems Narrative: Negative except as noted above Patient History Medical History Cervical radiculopathy Cervicalgia Cervical spondylosis DJD (degenerative joint disease), cervical Depression, major, recurrent Coronary artery disease Tobacco use disorder History of prostate cancer Generalized anxiety disorder Mixed hyperlipidemia Polyneuropathy, unspecified Type 2 diabetes mellitus with polyneuropathy Surgical History History of fusion of cervical spine H/O prostatectomy Social History household members: spouse Smoking Status: Former smoker alcohol intake: former Smoking Status: Former smoker Substance Use Type: does not use Exam Initial Vital Signs Initial Vital Signs: Vital Signs Temperature 97.8 F 11/23/23 00:45 Pulse Rate 86 11/23/23 00:45 Respiratory Rate 16 11/23/23 00:45 Blood Pressure 151/92 H 11/23/23 00:45 Pulse Oximetry 95 11/23/23 00:45 Oxygen Delivery Method Room Air 11/23/23 00:45 Const: Awake, alert, no acute distress, nontoxic appearing Cardiac: regular rate, regular rhythm RESP: unlabored, clear bilaterally, no wheezing GI: Right upper quadrant tenderness to deep palpation, no peritoneal signs MSK: Atraumatic, full range of motion, pulses equal Skin: Warm, Dry, intact, no rashes Neuro: AO x3, CN II-XII grossly intact, moves all extremities Psych: affect normal, mood normal, not suicidal, not homicidal Course Orders Ordered: ED Orders 11/23/23 01:03 CT abdomen pelvis w con Stat 11/23/23 01:04 EKG-12 Lead Stat 11/23/23 01:06 CBC Auto Diff [Complete Blood Count AUTO DIFF] Stat CMP [Comprehensive Metabolic Panel] Stat Lipase Stat PT [Prothrombin Time INR] Stat Troponin & CK Cardiac Panel Stat Discontinued Medications Sodium Chloride (Normal Saline 0.9%) 1,000 mls @ 1,000 mls/hr IV BOLUS ONE Stop: 11/23/23 02:02 Last Admin: 11/23/23 01:14 Dose: 1,000 mls/hr Documented By: JAMILAH Morphine Sulfate (Morphine 4 Mg/Ml Inj) 4 mg IV NOW ONE Stop: 11/23/23 01:04 Last Admin: 11/23/23 01:14 Dose: 4 mg Documented By: JAMILAH Ondansetron HCl (Ondansetron 4 Mg/2 Ml Inj) 4 mg IV NOW ONE Stop: 11/23/23 01:04 Last Admin: 11/23/23 01:13 Dose: 4 mg Documented By: JAMILAH Vital Signs Vital signs: Vital Signs - 8 hr 11/23/23 00:45 11/23/23 01:05 11/23/23 01:18 Temperature 97.8 F Pulse Rate 86 75 Respiratory Rate 16 Blood Pressure 151/92 H 130/76 Pulse Oximetry 95 97 Oxygen Delivery Method Room Air Room Air 11/23/23 01:18 11/23/23 01:30 11/23/23 01:50 Temperature Pulse Rate 74 77 82 Respiratory Rate Blood Pressure Pulse Oximetry 95 94 94 Oxygen Delivery Method Room Air Room Air 11/23/23 01:50 11/23/23 02:00 11/23/23 02:00 Temperature Pulse Rate 85 Respiratory Rate Blood Pressure 119/64 103/64 Pulse Oximetry 95 Oxygen Delivery Method 11/23/23 02:30 11/23/23 02:31 11/23/23 02:31 Temperature Pulse Rate 77 78 Respiratory Rate Blood Pressure 106/63 Pulse Oximetry 92 92 Oxygen Delivery Method Room Air Room Air 11/23/23 03:00 11/23/23 03:00 11/23/23 03:30 Temperature Pulse Rate 74 Respiratory Rate Blood Pressure 103/67 110/73 Pulse Oximetry 91 Oxygen Delivery Method Room Air 11/23/23 03:30 Temperature 97.8 F Pulse Rate 72 Respiratory Rate Blood Pressure Pulse Oximetry 96 Oxygen Delivery Method Room Air MDM - Abdominal Pain Differential Diagnosis Differential diagnosis: Likely abdominal pain, acute appendicitis and calculus of kidney Lab Data 11/23/23 01:06 11/23/23 01:06 Labs: Lab Results 11/23/23 Range/Units 01:06 WBC 11.1 H (4.5-11.0) X10^3/uL RBC 4.83 (4.5-5.9) X10^6/uL Hgb 14.6 (13.5-17.5) g/dL Hct 43.4 (41-53) % MCV 90.0 (80-100) fL MCH 30.2 (26-34) PG MCHC 33.6 (30-36) % RDW 13.4 (11.6-14.8) % Plt Count 206 (150-400) X10^3/uL Neut % (Auto) 73.4 (50-75) % Lymph % (Auto) 17.0 L (25-40) % [place] % (Auto) 8.1 (3-14) % Eos % (Auto) 0.7 L (2-4) % Baso % (Auto) 0.8 (0-2) % Neut # (Auto) 8100 H (2651-7837) /uL Lymph # (Auto) 1900 (3283-5269) /uL [place] # (Auto) 900 (0-900) /uL Eos # (Auto) 100 (0-450) /uL Baso # (Auto) 100 (0-100) /uL PT 12.6 H (9.4-12.5) SECONDS INR 1.1 (0.9-1.3) Sodium 135 L (137-145) mmol/L Potassium 4.3 (3.4-5.1) mmol/L Chloride 100 (98-107) mmol/L Carbon Dioxide 23 (22-32) mmol/L BUN 19 (9-20) mg/dL Creatinine 0.79 (0.66-1.25) mg/dL Estimated GFR > 60 (>60) mL/min BUN/Creatinine Ratio 24.1 H (6-22) Glucose 232 H (80-110) mg/dL Calcium 9.5 (8.4-10.2) mg/dL Total Bilirubin 1.0 (0.2-1.3) mg/dL AST 28 (17-59) IU/L ALT 26 (<50) IU/L Alkaline Phosphatase 46 (38-126) U/L Total Creatine Kinase 222 H (55-170) U/L Troponin I < 0.012 (0.01-0.034) ng/mL Total Protein 7.6 (6.3-8.2) g/dL Albumin 4.7 (3.5-5.0) g/dL Globulin 2.9 (1.7-4.1) g/dL Albumin/Globulin Ratio 1.6 (1.0-2.8) Lipase 116 (23-300) U/L MDM Narrative Medical decision making narrative: Well-appearing patient with several hours of right upper quadrant abdominal pain. Abdomen is soft, he does have reproducible tenderness in the right upper quadrant. Pain, nausea medications ordered, IV fluids ordered. Lab and CT imaging ordered. Laboratory work is reviewed, negative for acute findings. There is no leukocytosis, no left shift, kidney function is normal, liver enzymes within normal limits. CT of the abdomen and pelvis reviewed, shows no acute intra- abdominal pathology to explain patient's symptoms. Patient reassessed, resting comfortably in bed, states that he feels improved. I discussed all results of labs and imaging with the patient and at bedside. I explained I do not know the cause of his symptoms but there does not appear to be any indication for surgery or hospitalization at this time. I recommended that patient continue his home nausea medications, he may take Tylenol and Motrin as needed for pain. Recommended 24 hour follow up if he does not experience any improvement in symptoms or if they worsen in any way. ED return precautions discussed at bedside. Patient expressed understanding of the plan and is in agreement at this time. All questions answered at the time of discharge. Discharge Plan Departure Patient Disposition: Home Clinical Impression: Abdominal pain Instructions: DI for Abdominal Pain-Adult Activity Restrictions/Additional Instructions: Your labs and imaging were normal today. Your liver, gallbladder, and pancreas all appeared normal on both laboratory work and on CT scan. I highly recommend that if you do not feel improved after 24 hours or have abrupt worsening of your symptoms to return to the emergency department for repeat evaluation. Follow up with your primary care physician. Prescriptions: No Action ezetimibe 10 mg tablet 10 mg PO DAILY omeprazole 20 mg capsule,delayed release(DR/EC) 20 mg PO DAILY Qty: 30 3RF trazodone 100 mg tablet 100 mg PO DAILY pregabalin 25 mg capsule 25 mg PO BEDTIME Qty: 30 0RF cyclobenzaprine 10 mg tablet 10 mg PO TID Qty: 90 0RF clopidogrel 75 mg tablet 75 mg PO DAILY Qty: 90 3RF buspirone 15 mg tablet 15 mg PO TID Qty: 180 3RF rosuvastatin 10 mg tablet 10 mg PO DAILY Qty: 90 3RF duloxetine 60 mg capsule,delayed release(DR/EC) 60 mg PO BID famotidine [Pepcid] 20 mg tablet 20 mg PO DAILY Qty: 30 3RF glipizide 5 mg tablet 5 mg PO BID Qty: 180 3RF metformin 850 mg tablet 850 mg PO BID Qty: 180 3RF (DME) Accu-Chek Guide test strips Strip See Rx Instructions .ROUTE .MEDSUPPLY Qty: 10 Rx Instructions: As directed hydroxyzine HCl 25 mg tablet 25 mg PO BID methocarbamol 500 mg tablet 500 mg PO TID Qty: 60 3RF Rx Instructions: 1-2 tablets three times daily as needed for spasms/pain losartan 25 mg tablet 25 mg PO DAILY Referrals: Lela Anderson MD [Primary Care Provider] - Stand Alone Forms: Patient Portal/API
[2023-11-23] MEDS: ONDANSETRON 4 MG/2 ML INJ IV (01:13)
[2023-11-23] MEDS: MORPHINE 4 MG/ML INJ IV (01:14)
[2023-11-23] MEDS: SODIUM CHLORIDE 0.9% 1,000 ML 1000 ML IV (01:14)
[2023-11-23 01:16] LABS: Add Manual Diff / Slide Review NO; Basophils Absolute Auto 100 /uL (0-100); Basophils Percent Auto 0.8 % (0-2); Eosinophils Absolute Auto 100 /uL (0-450); Eosinophils Percent Auto 0.7 % (2-4); Hematocrit 43.4 % (41-53); Hemoglobin 14.6 g/dL (13.5-17.5); Lymphocytes Absolute Auto 1900 /uL (1100-4500); Mean Corpuscular HGB Conc 33.6 % (30-36); Mean Corpuscular Hemoglobin 30.2 PG (26-34); Monocytes Absolute Auto 900 /uL (0-900); Monocytes Percent Auto 8.1 % (3-14); Neutrophils Absolute Auto 8100 /uL (1500-7000); Neutrophils Percent Auto 73.4 % (50-75); Platelet Count 206 X10^3/uL (150-400); Red Blood Cell Count 4.83 X10^6/uL (4.5-5.9); Red Cell Distribution Width 13.4 % (11.6-14.8); White Blood Cell Count 11.1 X10^3/uL (4.5-11.0)
[2023-11-23 01:25] LABS: INR 1.1 (0.9-1.3); Prothrombin Time 12.6 SECONDS (9.4-12.5)
[2023-11-23 01:29] LABS: Alanine Aminotransferase 26 IU/L (<50); Albumin 4.7 g/dL (3.5-5.0); Albumin Globulin Ratio 1.6 (1.0-2.8); Alkaline Phosphatase 46 U/L (38-126); Aspartate Aminotransferase 28 IU/L (17-59); BUN Creatinine Ratio 24.1 (6-22); Blood Urea Nitrogen 19 mg/dL (9-20); Calcium 9.5 mg/dL (8.4-10.2); Carbon Dioxide 23 mmol/L (22-32); Chloride 100 mmol/L (98-107); Creatine Kinase 222 U/L (55-170); Estimated Glomerular Filt Rate > 60 mL/min (>60); Globulin 2.9 g/dL (1.7-4.1); Glucose 232 mg/dL (80-110); HEMOLYSIS < 15 (0-50); Lipase 116 U/L (23-300); Potassium 4.3 mmol/L (3.4-5.1); Sodium 135 mmol/L (137-145); Total Protein 7.6 g/dL (6.3-8.2)
[2023-11-23 01:41] LABS: Troponin I < 0.012 ng/mL (0.01-0.034)
== END 2023-11-23 03:38 | disposition home or self-care (01) ==
PROVIDERS: Emergency Provider Emergency Medicine; Family Provider Internal Medicine; PCP Family Medicine
DX: R10.11 Right upper quadrant pain (principal)
CPT/HCPCS: 36415; 74177; 80053; 82550; 83690; 84484; 85025; 85610; J2270; J2405; Q9967

== ENCOUNTER 2023-11-23 14:40 | Observation (INO) | payer OTHER, SELFPAY ==
[2023-11-23 15:18] VITALS: BP 180/109; PULSE 89; RESP 16; TEMP 36.6; O2SAT 98; BMI 23.7
[2023-11-23 16:33] LABS: Add Manual Diff / Slide Review NO; Basophils Absolute Auto 0 /uL (0-100); Basophils Percent Auto 0.3 % (0-2); Eosinophils Absolute Auto 0 /uL (0-450); Eosinophils Percent Auto 0.2 % (2-4); Hematocrit 44.7 % (41-53); Hemoglobin 15.1 g/dL (13.5-17.5); Lymphocytes Absolute Auto 1200 /uL (1100-4500); Lymphocytes Percent Auto 11.3 % (25-40); Mean Corpuscular HGB Conc 33.8 % (30-36); Mean Corpuscular Hemoglobin 30.3 PG (26-34); Mean Corpuscular Volume 89.8 fL (80-100); Monocytes Absolute Auto 900 /uL (0-900); Monocytes Percent Auto 9.1 % (3-14); Neutrophils Absolute Auto 8200 /uL (1500-7000); Neutrophils Percent Auto 79.1 % (50-75); Platelet Count 222 X10^3/uL (150-400); Red Blood Cell Count 4.98 X10^6/uL (4.5-5.9); Red Cell Distribution Width 13.7 % (11.6-14.8); White Blood Cell Count 10.3 X10^3/uL (4.5-11.0)
[2023-11-23] MEDS: ONDANSETRON 4 MG/2 ML INJ IV (16:34)
[2023-11-23 16:57] LABS: Bacteria Urine Occasional (0-1); Culture Indicated Urine Cult Not Indicated; Mucus Urine 1+ (Negative); RBC Urine 0-1/HPF (0-5/HPF); Squamous Epithelial Cell Urine 0-1 /HPF (0-5/HPF); Urine Volume 10mL (spun); WBC Urine 0-1/HPF (0-5/HPF)
[2023-11-23 17:18] LABS: Alanine Aminotransferase 26 IU/L (<50); Albumin 4.9 g/dL (3.5-5.0); Albumin Globulin Ratio 1.4 (1.0-2.8); Alkaline Phosphatase 44 U/L (38-126); Aspartate Aminotransferase 29 IU/L (17-59); BUN Creatinine Ratio 17.3 (6-22); Blood Urea Nitrogen 14 mg/dL (9-20); Calcium 9.5 mg/dL (8.4-10.2); Carbon Dioxide 27 mmol/L (22-32); Chloride 97 mmol/L (98-107); Estimated Glomerular Filt Rate > 60 mL/min (>60); Globulin 3.6 g/dL (1.7-4.1); Glucose 230 mg/dL (80-110); HEMOLYSIS < 15 (0-50); Lipase 37 U/L (23-300); Potassium 4.3 mmol/L (3.4-5.1); Sodium 136 mmol/L (137-145); Total Protein 8.5 g/dL (6.3-8.2)
[2023-11-23] MEDS: MORPHINE 4 MG/ML INJ IV (17:43)
--- NOTE | 2023-11-23 17:54 | DI.US.S_ITS ---
PROCEDURE: US ABDOMEN LIMITED INDICATIONS: RUQ PAIN TECHNIQUE: Real-time focused scanning was performed of the abdomen, with image documentation. COMPARISON: [facility], CT, CT ABDOMEN PELVIS W CON, 11/23/2023, 1:43. FINDINGS: The liver demonstrates normal size. The liver demonstrates generalized moderately increased echogenicity. This decreases ultrasound sensitivity for detection of hepatic masses. The liver is overall not well seen, secondary to patient motion and discomfort during the examination. No findings of gallstones or sludge are seen. The gallbladder wall is not thickened, measuring 3 mm or less. No specific pericholecystic fluid is seen. The sonographic Nettles sign is positive. The common bile duct measures 9 mm. The pancreas is not seen, secondary to overlying bowel gas. IMPRESSION: Normal appearing gallbladder. However, the sonographic Nettles sign is positive. The common bile duct measures 9 mm, which is mildly dilated and similar to the CT performed earlier in the day. - If clinically appropriate, an MRCP could be considered for further evaluation (assuming that there is no contraindication to MRI). Fatty liver infiltration. Dictated by: Davidson Amador M.D. on 11/23/2023 at 18:06 Approved by: Davidson Amador M.D. on 11/23/2023 at 18:08
--- NOTE | 2023-11-23 18:17 | ED_ITS ---
HPI - Abdominal Pain General Chief Complaint: Abdominal Pain Stated Complaint: R/ ABD pain/ here T-1 Time Seen by Provider: 11/23/23 17:55 Source: patient Mode of arrival: Ambulatory History of Present Illness HPI narrative: 68-year-old male with history of coronary disease, wye-[id number] diabetes presents by private vehicle from home for recheck after experiencing abdominal pain. Patient is seen by myself less than 24 hours prior for same complaint. At that time laboratory work was unremarkable, CT imaging did not show any acute findings, after shared decision-making with patient patient was discharged home with instructions to follow up if he did not feel improved. Patient states his pain has worsened and is not controlled with home medications. It is persistent in the right upper quadrant, worse with deep palpation. Related Data Home Medications Medication Instructions Recorded Confirmed losartan 25 mg tablet 25 mg PO DAILY heart attack 02/05/23 11/22/23 blood sugar diagnostic (Accu-Chek #10 ea 04/14/23 11/22/23 Guide test strips) hydroxyzine HCl 25 mg tablet 25 mg PO BID Anx/depression 09/21/23 11/22/23 ezetimibe 10 mg tablet 10 mg PO DAILY 09/29/23 11/22/23 duloxetine 60 mg capsule,delayed 60 mg PO BID 10/26/23 11/22/23 release trazodone 100 mg tablet 100 mg PO DAILY 11/10/23 11/22/23 Previous Rx's Medication Instructions Recorded glipizide 5 mg tablet 5 mg PO BID #180 tabs 12/10/22 metformin 850 mg tablet 850 mg PO BID #180 tabs 12/10/22 clopidogrel 75 mg tablet 75 mg PO DAILY #90 tabs 06/21/23 buspirone 15 mg tablet 15 mg PO TID #180 tabs 08/16/23 methocarbamol 500 mg tablet 500 mg PO TID #60 tabs 09/21/23 rosuvastatin 10 mg tablet 10 mg PO DAILY #90 tabs 10/05/23 famotidine 20 mg tablet (Pepcid) 20 mg PO DAILY #30 tabs 11/02/23 cyclobenzaprine 10 mg tablet 10 mg PO TID #90 tabs 11/10/23 pregabalin 25 mg capsule 25 mg PO BEDTIME #30 caps 11/10/23 omeprazole 20 mg capsule,delayed 20 mg PO DAILY #30 caps 11/22/23 release Allergies Allergy/AdvReac Type Severity Reaction Status Date / Time lisinopril Allergy Severe Swelling Verified 11/23/23 15:21 of Lip/Tongue/Throat cefaclor [CEFACLOR] Allergy Unknown rash Verified 11/23/23 15:21 Review of Systems Review of Systems Narrative: Negative except as noted above Patient History Medical History Cervical radiculopathy Cervicalgia Cervical spondylosis DJD (degenerative joint disease), cervical Depression, major, recurrent Coronary artery disease Tobacco use disorder History of prostate cancer Generalized anxiety disorder Mixed hyperlipidemia Polyneuropathy, unspecified Type 2 diabetes mellitus with polyneuropathy Surgical History History of fusion of cervical spine H/O prostatectomy Social History household members: spouse Smoking Status: Former smoker alcohol intake: current Smoking Status: Former smoker Substance Use Type: does not use Exam Initial Vital Signs Initial Vital Signs: Vital Signs Temperature 97.8 F 11/23/23 15:18 Pulse Rate 89 11/23/23 15:18 Respiratory Rate 16 11/23/23 15:18 Blood Pressure 180/109 H 11/23/23 15:18 Pulse Oximetry 98 11/23/23 15:18 Oxygen Delivery Method Room Air 11/23/23 15:18 Const: Awake, alert, uncomfortable, in pain Cardiac: regular rate, regular rhythm RESP: unlabored, clear bilaterally, no wheezing GI: Atraumatic, soft, right upper quadrant tenderness to both light and deep palpation, no peritoneal signs MSK: Atraumatic, full range of motion, pulses equal Skin: Warm, Dry, intact, no rashes Neuro: AO x3, CN II-XII grossly intact, moves all extremities Psych: affect normal, mood normal, not suicidal, not homicidal Course Orders Ordered: ED Orders 11/23/23 15:25 EKG-12 Lead Stat 11/23/23 16:22 Complete Blood Count AUTO DIFF Stat Comprehensive Metabolic Panel Stat Lipase Stat 11/23/23 16:27 Lactate (Lactic Acid) Stat 11/23/23 16:35 Ictotest Urine Stat Urine Microscopic Stat 11/23/23 17:54 US abdomen limited Stat 11/23/23 19:48 Consult to General Surgery Stat Ondansetron HCl (Ondansetron 4 Mg Odt) 4 mg PO NOW PRN PRN Reason: Nausea And Vomiting Ondansetron HCl (Ondansetron 4 Mg/2 Ml Inj) 4 mg IV NOW PRN PRN Reason: Nausea And Vomiting Last Admin: 11/23/23 16:34 Dose: 4 mg Documented By: SB Discontinued Medications Hydromorphone HCl (Hydromorphone 0.5 Mg Inj) 0.5 mg IV NOW ONE Stop: 11/23/23 18:20 Last Admin: 11/23/23 18:22 Dose: 0.5 mg Documented By: JAMILAH Hydromorphone HCl (Hydromorphone 1 Mg Inj) 1 mg IV NOW ONE Stop: 11/23/23 18:44 Last Admin: 11/23/23 19:06 Dose: 1 mg Documented By: JAMILAH Acetaminophen (Ofirmev) 1,000 mg in 100 mls @ 400 mls/hr IV NOW ONE Stop: 11/23/23 20:01 Last Infusion: 11/23/23 21:06 Dose: Infused Documented By: Admin: 11/23/23 20:32 Dose: 400 mls/hr Documented By: LYN Sodium Chloride (Normal Saline 0.9%) 1,000 mls @ 1,000 mls/hr IV BOLUS ONE Stop: 11/23/23 21:18 Last Admin: 11/23/23 20:33 Dose: 1,000 mls/hr Documented By: LYN Ketorolac Tromethamine (Ketorolac 30 Mg/Ml Vial) 15 mg IV NOW ONE Stop: 11/23/23 19:48 Last Admin: 11/23/23 20:32 Dose: 15 mg Documented By: LYN Morphine Sulfate (Morphine 4 Mg/Ml Inj) 4 mg IV NOW ONE Stop: 11/23/23 17:41 Last Admin: 11/23/23 17:43 Dose: 4 mg Documented By: [facility] Vital Signs Vital signs: Vital Signs - 8 hr 11/23/23 15:18 Temperature 97.8 F Pulse Rate 89 Respiratory Rate 16 Blood Pressure 180/109 H Pulse Oximetry 98 Oxygen Delivery Method Room Air MDM - Abdominal Pain Differential Diagnosis Differential diagnosis: Likely abdominal pain, acute appendicitis and calculus of kidney Lab Data 11/23/23 16:22 02/13/24 16:22 Labs: Lab Results 11/23/23 11/23/23 11/23/23 Range/Units 16:22 16:27 16:35 WBC 10.3 (4.5-11.0) X10^3/uL RBC 4.98 (4.5-5.9) X10^6/uL Hgb 15.1 (13.5-17.5) g/dL Hct 44.7 (41-53) % MCV 89.8 (80-100) fL MCH 30.3 (26-34) PG MCHC 33.8 (30-36) % RDW 13.7 (11.6-14.8) % Plt Count 222 (150-400) X10^3/uL Neut % (Auto) 79.1 H (50-75) % Lymph % (Auto) 11.3 L (25-40) % [place] % (Auto) 9.1 (3-14) % Eos % (Auto) 0.2 L (2-4) % Baso % (Auto) 0.3 (0-2) % Neut # (Auto) 8200 H (7015-7480) /uL Lymph # (Auto) 1200 (4927-7179) /uL [place] # (Auto) 900 (0-900) /uL Eos # (Auto) 0 (0-450) /uL Baso # (Auto) 0 (0-100) /uL Sodium 136 L (137-145) mmol/L Potassium 4.3 (3.4-5.1) mmol/L Chloride 97 L (98-107) mmol/L Carbon Dioxide 27 (22-32) mmol/L BUN 14 (9-20) mg/dL Creatinine 0.81 (0.66-1.25) mg/dL Estimated GFR > 60 (>60) mL/min BUN/Creatinine Ratio 17.3 (6-22) Glucose 230 H (80-110) mg/dL Lactate 2.8 H (0.7-2.1) mmol/L Calcium 9.5 (8.4-10.2) mg/dL Total Bilirubin 1.0 (0.2-1.3) mg/dL AST 29 (17-59) IU/L ALT 26 (<50) IU/L Alkaline Phosphatase 44 (38-126) U/L Total Protein 8.5 H (6.3-8.2) g/dL Albumin 4.9 (3.5-5.0) g/dL Globulin 3.6 (1.7-4.1) g/dL Albumin/Globulin Ratio 1.4 (1.0-2.8) Lipase 37 D (23-300) U/L Ur Bilirubin Confirm TNP Urine RBC 0-1/hpf (0-5/HPF) Urine WBC 0-1/hpf (0-5/HPF) Ur Squamous Epith Cells 0-1 /hpf (0-5/HPF) Urine Bacteria Occasional (0-1) (None) Urine Mucus 1+ H (Negative) Ur Culture Indicated? Cult not indicated Vol Urine Centrifuged 10ml (spun) Point of care testing: Urine Dip Bedside Urine Glucose Negative Bedside Urine Bilirubin + 1 Bedside Urine Ketone +/- 5 Urine Specific [place] 1.030 Bedside Urine Occult Blood +/- Bedside Urine pH 5.5 Bedside Urine Protein +/- 15 Bedside Urine Urobilinogen - Negative Bedside Urine Nitrite - Negative Bedside Urine Leukocytes - Negative Esterase MDM Narrative Medical decision making narrative: Return visit for worsening of patient's previous right upper quadrant abdominal pain. Patient does appear to be much more comfortable than he was last night with more pain in the right upper quadrant. No peritoneal signs. We will reorder labs and this time we will order ultrasound imaging. Little utility in repeating CT scan so close to original study. 191 -laboratory work is unchanged from yesterday, ultrasound of the right upper quadrant shows a 9 mm common bile duct, positive sonographic Nettles sign, but no other abnormal findings in the gallbladder. Discussed case with on-call general surgeon Dr. Lynch, who recommended a HIDA scan. Unfortunately we do not have nuclear medicine capabilities this week at our facility, call placed to [facility] to see if we could arrange for transfer for the appropriate study. [facility] has no nuclear medicine until at least tomorrow morning. They recommended calling the [facility] supervisor fertilizer processing tomorrow morning to see about arranging transport for study. Patient continues to be in pain and has required numerous doses of pain medications for relief. Supervising staff clarified that we could admit the patient to our hospital and arrange transport to [facility] for the HIDA scan and then be returned back to [facility] for continuation of care. Discussed lab and imaging findings with the patient as well as plan for admission for pain control with possible transfer to [facility] for study. Patient is in agreement at this time. Discharge Plan Departure Patient Disposition: Admitted as Observation Clinical Impression: Intractable abdominal pain Admit Date/Time: 11/23/23 20:05 Admit Provider: Zoran Paez
[2023-11-23] MEDS: HYDROMORPHONE 0.5 MG INJ IV (18:22)
[2023-11-23] MEDS: HYDROMORPHONE 1 MG INJ IV (19:06)
[2023-11-23 20:04] LABS: Lactate (Lactic Acid) 2.8 mmol/L (0.7-2.1)
[2023-11-23] MEDS: ACETAMINOPHEN IV 1,000 MG/100 ML VIAL 400 MG IV (20:32)
[2023-11-23] MEDS: KETOROLAC 30 MG/ML VIAL 15 MG IV (20:32)
[2023-11-23] MEDS: SODIUM CHLORIDE 0.9% 1,000 ML 1000 ML IV (20:33)
[2023-11-23 20:53] VITALS: BMI 23.7
[2023-11-23 20:57] LABS: Reflexed Lactate in 2 Hours Y
[2023-11-23 21:33] VITALS: BP 129/78; PULSE 96; RESP 18; TEMP 36.9; O2SAT 94
[2023-11-23 21:39] LABS: Lactate 2HR (Lactic Acid Rflx) 1.5 mmol/L (0.7-2.1)
--- NOTE | 2023-11-23 23:01 | PM.HP.1 ---
History of Present Illness History of Present Illness Date Patient Seen: 11/23/23 Time Patient Seen: 22:30 Chief complaint: R/ ABD pain/ here T-1 Narrative: 68 years old male with a past medical history of hypertension, diabetes, coronary artery disease, dyslipidemia prostate cancer and multiple other medical issues presents emergency room for persistent abdominal pain mainly in the right upper quadrant with the nausea. Reports the pain is more acute in the past few days but the nausea has been ongoing for the past several months. Denies any fever episodes. Denies any bowel movement issues or bladder issues. Patient was previously evaluated in the emergency room 24 hours prior with similar complaints and was discharged home with conservative management after workup including a CT scan of the abdomen showed no acute process. Currently returns due to persistent pain not controlled with oral medications. Noted to be tender in the right upper quadrant with positive Nettles sign and an ultrasound is concerning for possible dilated CBD but normal LFTs. Emergency room discussed with the on-call surgeon?Dr. Lynch who recommended a HIDA scan that the scan could be done at [facility] with possible transfer being arranged to the hospital and return back to [facility] for continuation of care. Due to persistent symptoms, he was admitted for further evaluation [facility] Medical History Cervical radiculopathy Cervicalgia Cervical spondylosis DJD (degenerative joint disease), cervical Depression, major, recurrent Coronary artery disease Tobacco use disorder History of prostate cancer Generalized anxiety disorder Mixed hyperlipidemia Polyneuropathy, unspecified Type 2 diabetes mellitus with polyneuropathy Surgical History History of fusion of cervical spine H/O prostatectomy Social History household members: spouse Smoking Status: Former smoker alcohol intake: current Meds Home Medications and Allergies Home Medications Medication Instructions Recorded Confirmed Type glipizide 5 mg tablet 5 mg PO BID #180 tabs 12/10/22 11/23/23 Rx metformin 850 mg tablet 850 mg PO BID #180 tabs 12/10/22 11/23/23 Rx losartan 25 mg tablet 25 mg PO DAILY heart attack 02/05/23 11/23/23 History blood sugar diagnostic (Accu-Chek #10 ea 04/14/23 11/22/23 History Guide test strips) clopidogrel 75 mg tablet 75 mg PO DAILY #90 tabs 06/21/23 11/23/23 Rx buspirone 15 mg tablet 15 mg PO TID #180 tabs 08/16/23 11/23/23 Rx hydroxyzine HCl 25 mg tablet 25 mg PO BID Anx/depression 09/21/23 11/23/23 History methocarbamol 500 mg tablet 500 mg PO TID #60 tabs 09/21/23 11/23/23 Rx ezetimibe 10 mg tablet 10 mg PO DAILY 09/29/23 11/23/23 History rosuvastatin 10 mg tablet 10 mg PO DAILY #90 tabs 10/05/23 11/23/23 Rx duloxetine 60 mg capsule,delayed 60 mg PO BID 10/26/23 11/23/23 History release famotidine 20 mg tablet (Pepcid) 20 mg PO DAILY #30 tabs 11/02/23 11/23/23 Rx cyclobenzaprine 10 mg tablet 10 mg PO TID #90 tabs 11/10/23 11/23/23 Rx pregabalin 25 mg capsule 25 mg PO BEDTIME #30 caps 11/10/23 11/23/23 Rx trazodone 100 mg tablet 100 mg PO DAILY 11/10/23 11/23/23 History omeprazole 20 mg capsule,delayed 20 mg PO DAILY #30 caps 11/22/23 11/23/23 Rx release Allergies Allergy/AdvReac Type Severity Reaction Status Date / Time lisinopril Allergy Severe Swelling Verified 11/23/23 15:21 of Lip/Tongue/Throat cefaclor [CEFACLOR] Allergy Unknown rash Verified 11/23/23 15:21 Review of Systems Review of Systems Narrative: A 12 point review of system is negative unless otherwise stated in history of present illness Exam Vital Signs (past 8 hours): - 11/23/23 15:18 11/23/23 21:33 Temperature 97.8 F 98.4 F Pulse Rate 89 96 H Respiratory Rate 16 18 Blood Pressure 180/109 H 129/78 Pulse Oximetry 98 94 Oxygen Delivery Method Room Air Oxygen Flow Rate 0 Oxygen Delivery Method Room Air Oxygen Flow Rate 0 Narrative Exam Narrative: Patient is awake alert. Air entry equal bilaterally Abdominal tenderness in the right upper quadrant. Abdomen is soft bowel sounds are heard Central nervous system patient is awake alert oriented X.3 with no focal neurodeficits Objective Labs 11/23/23 16:22 11/23/23 16:22 Labs: Laboratory Results - last 24 hr 11/23/23 11/23/23 11/23/23 16:22 16:27 16:35 WBC 10.3 RBC 4.98 Hgb 15.1 Hct 44.7 MCV 89.8 MCH 30.3 MCHC 33.8 RDW 13.7 Plt Count 222 Neut % (Auto) 79.1 H Lymph % (Auto) 11.3 L [place] % (Auto) 9.1 Eos % (Auto) 0.2 L Baso % (Auto) 0.3 Neut # (Auto) 8200 H Lymph # (Auto) 1200 [place] # (Auto) 900 Eos # (Auto) 0 Baso # (Auto) 0 Sodium 136 L Potassium 4.3 Chloride 97 L Carbon Dioxide 27 BUN 14 Creatinine 0.81 Estimated GFR > 60 BUN/Creatinine Ratio 17.3 Glucose 230 H Lactate 2.8 H Calcium 9.5 Total Bilirubin 1.0 AST 29 ALT 26 Alkaline Phosphatase 44 Total Protein 8.5 H Albumin 4.9 Globulin 3.6 Albumin/Globulin Ratio 1.4 Lipase 37 D Ur Bilirubin Confirm TNP Urine RBC 0-1/hpf Urine WBC 0-1/hpf Ur Squamous Epith Cells 0-1 /hpf Urine Bacteria Occasional (0-1) Urine Mucus 1+ H Ur Culture Indicated? Cult not indicated Vol Urine Centrifuged 10ml (spun) 11/23/23 21:25 WBC RBC Hgb Hct MCV MCH MCHC RDW Plt Count Neut % (Auto) Lymph % (Auto) [place] % (Auto) Eos % (Auto) Baso % (Auto) Neut # (Auto) Lymph # (Auto) [place] # (Auto) Eos # (Auto) Baso # (Auto) Sodium Potassium Chloride Carbon Dioxide BUN Creatinine Estimated GFR BUN/Creatinine Ratio Glucose Lactate 1.5 Calcium Total Bilirubin AST ALT Alkaline Phosphatase Total Protein Albumin Globulin Albumin/Globulin Ratio Lipase Ur Bilirubin Confirm Urine RBC Urine WBC Ur Squamous Epith Cells Urine Bacteria Urine Mucus Ur Culture Indicated? Vol Urine Centrifuged Assessment & Plan Assessment & Plan narrative: 68 years old male with a past medical history of hypertension, diabetes, coronary artery disease, dyslipidemia prostate cancer and multiple other medical issues presents emergency room for persistent abdominal pain mainly in the right upper quadrant with the nausea. Reports the pain is more acute in the past few days but the nausea has been ongoing for the past several months. Denies any fever episodes. Denies any bowel movement issues or bladder issues. Patient was previously evaluated in the emergency room 24 hours prior with similar complaints and was discharged home with conservative management after workup including a CT scan of the abdomen showed no acute process. Currently returns due to persistent pain not controlled with oral medications. Noted to be tender in the right upper quadrant with positive Nettles sign and an ultrasound is concerning for possible dilated CBD but normal LFTs. Emergency room discussed with the on-call surgeon?Dr. Lynch who recommended a HIDA scan that the scan could be done at [facility] with possible transfer being arranged to the hospital and return back to [facility] for continuation of care. Due to persistent symptoms, he was admitted for further evaluation 1 abdominal pain with concerns for acute cholecystitis. No evidence of fever/leukocytosis. Held off antibiotics pending further workup including HIDA scan and follow-up by surgery. Pain control with IV Dilaudid for now and monitor closely 2 nausea. Zofran. 3 history of coronary artery disease. Resume the home medications once it has been verified. 4 diabetes mellitus type 2. Hold the home glipizide for now since patient is n.p.o. and watch the blood sugars every 6 hours with insulin sliding scale 5 anxiety. Xanax as needed 6 GI prophylaxis will be with Protonix 7 DVT prophylaxis will be with SCDs and encourage ambulation Patient will be admitted under observation status. For now he is a full code Patient was seen and evaluated with the help of video communication device. Time spent is 15 minutes. Location of the provider is [facility] VTE Deep Vein Thrombosis/Pulmonary Embolism Present on Admission: No
[2023-11-23] MEDS: SODIUM CHLORIDE 0.9% 1,000 ML 100 ML IV (23:08)
[2023-11-24] VITALS (7 sets, daily range): BP systolic 113–151; BP diastolic 71–86; PULSE 70–103; RESP 17–18; TEMP 36.4–37; O2SAT 92–98
[2023-11-24] MEDS: ACETAMINOPHEN 325 MG TABLET 650 MG PO ×3 (03:00→14:34)
--- NOTE | 2023-11-24 03:48 | PC.ADMIT ---
[email or web address] Admission Note: Patient admitted to AC unit from ED at 21:05, transferred by wheelchair and able to ambulate to bed independently. Alert and oriented x 4, cooperative with care. Pain medications given in ED, pt reports pain level of 1/10 at time of admit. IV in left AC, NS running at 100/hr. Oriented to room and call light, bed in low/ locked position, and call light within reach. The patient,Anusha Crawley,68 y/o, was given written information regarding hospital policies, unit procedures and contact persons. Patient's smoking status: Former smoker. Vital Signs - 8 hr 11/23/23 20:53 11/23/23 21:33 11/24/23 00:00 Temperature 98.4 F 98.3 F Pulse Rate 96 H 103 H Respiratory Rate 18 18 Blood Pressure 129/78 129/71 Pulse Oximetry 94 92 Oxygen Delivery Method Room Air Oxygen Flow Rate 0 0
[2023-11-24 04:54] LABS: Add Manual Diff / Slide Review NO; Basophils Absolute Auto 0 /uL (0-100); Basophils Percent Auto 0.3 % (0-2); Eosinophils Absolute Auto 0 /uL (0-450); Eosinophils Percent Auto 0.4 % (2-4); Hematocrit 38.5 % (41-53); Hemoglobin 13.2 g/dL (13.5-17.5); Lymphocytes Absolute Auto 1500 /uL (1100-4500); Lymphocytes Percent Auto 17.4 % (25-40); Mean Corpuscular HGB Conc 34.2 % (30-36); Mean Corpuscular Hemoglobin 30.6 PG (26-34); Mean Corpuscular Volume 89.6 fL (80-100); Monocytes Absolute Auto 900 /uL (0-900); Monocytes Percent Auto 10.7 % (3-14); Neutrophils Absolute Auto 6000 /uL (1500-7000); Neutrophils Percent Auto 71.2 % (50-75); Platelet Count 160 X10^3/uL (150-400); Red Cell Distribution Width 13.7 % (11.6-14.8); White Blood Cell Count 8.5 X10^3/uL (4.5-11.0)
[2023-11-24 05:08] LABS: Alanine Aminotransferase 21 IU/L (<50); Albumin 3.9 g/dL (3.5-5.0); Albumin Globulin Ratio 1.4 (1.0-2.8); Alkaline Phosphatase 36 U/L (38-126); Aspartate Aminotransferase 34 IU/L (17-59); BUN Creatinine Ratio 16.7 (6-22); Bilirubin Total 0.9 mg/dL (0.2-1.3); Blood Urea Nitrogen 13 mg/dL (9-20); Calcium 9.1 mg/dL (8.4-10.2); Carbon Dioxide 30 mmol/L (22-32); Chloride 98 mmol/L (98-107); Estimated Glomerular Filt Rate > 60 mL/min (>60); Globulin 2.7 g/dL (1.7-4.1); Glucose 128 mg/dL (80-110); HEMOLYSIS < 15 (0-50); Magnesium 1.7 mg/dL (1.6-2.3); Potassium 4.4 mmol/L (3.4-5.1); Sodium 135 mmol/L (137-145); Total Protein 6.6 g/dL (6.3-8.2)
--- NOTE | 2023-11-24 07:42 | PM.PN.1 ---
Subjective Subjective Interval history: Pain has improved. 10/10 yesterday now it is 4/10. This was initially colicky. He was sent over to [facility] for a nuclear HIDA scan but this was not feasible as he can not lay still for an hour to an hour and a half. This was aborted. He also has chronic neck pain which is years in the making. He currently is having this evaluated outpatient for potential injections into his cervical region. He does denies nausea or vomiting. His right upper quadrant is tender if he palpates. Exam Vital Signs (past 8 hours): - 11/24/23 00:00 11/24/23 04:00 Temperature 98.3 F 98.2 F Pulse Rate 103 H 81 Respiratory Rate 18 17 Blood Pressure 129/71 114/78 Pulse Oximetry 92 92 Oxygen Flow Rate 0 0 Oxygen Delivery Method Room Air Oxygen Flow Rate 0 Narrative Exam Narrative: NAD, fluent speech. Calm. Normocephalic skull, EOMI, anicteric sclera. Lungs are clear, normal rate and effort. Heart is regular, no murmur. Abdomen is soft but there is some tenderness in the right upper quadrant. Extremities are free of edema. Objective Imaging CT scan - abdomen: Radiologist's impression: Colonic diverticulosis without CT evidence of acute diverticulitis. Hepatic steatosis. Nonobstructive left inferior pole 3-4 mm calculus. No hydroureteronephrosis. US - abdomen: Radiologist's impression: IMPRESSION: Normal appearing gallbladder. However, the sonographic Nettles sign is positive. The common bile duct measures 9 mm, which is mildly dilated and similar to the CT performed earlier in the day. - If clinically appropriate, an MRCP could be considered for further evaluation (assuming that there is no contraindication to MRI). Fatty liver infiltration. Labs 11/24/23 04:30 11/24/23 04:30 Labs: Laboratory Results - last 24 hr 11/23/23 11/23/23 11/23/23 16:22 16:27 16:35 WBC 10.3 RBC 4.98 Hgb 15.1 Hct 44.7 MCV 89.8 MCH 30.3 MCHC 33.8 RDW 13.7 Plt Count 222 Neut % (Auto) 79.1 H Lymph % (Auto) 11.3 L [place] % (Auto) 9.1 Eos % (Auto) 0.2 L Baso % (Auto) 0.3 Neut # (Auto) 8200 H Lymph # (Auto) 1200 [place] # (Auto) 900 Eos # (Auto) 0 Baso # (Auto) 0 Sodium 136 L Potassium 4.3 Chloride 97 L Carbon Dioxide 27 BUN 14 Creatinine 0.81 Estimated GFR > 60 BUN/Creatinine Ratio 17.3 Glucose 230 H Lactate 2.8 H Calcium 9.5 Magnesium Total Bilirubin 1.0 AST 29 ALT 26 Alkaline Phosphatase 44 Total Protein 8.5 H Albumin 4.9 Globulin 3.6 Albumin/Globulin Ratio 1.4 Lipase 37 D Ur Bilirubin Confirm TNP Urine RBC 0-1/hpf Urine WBC 0-1/hpf Ur Squamous Epith Cells 0-1 /hpf Urine Bacteria Occasional (0-1) Urine Mucus 1+ H Ur Culture Indicated? Cult not indicated Vol Urine Centrifuged 10ml (spun) 11/23/23 11/24/23 21:25 04:30 WBC 8.5 RBC 4.30 L Hgb 13.2 L Hct 38.5 L MCV 89.6 MCH 30.6 MCHC 34.2 RDW 13.7 Plt Count 160 Neut % (Auto) 71.2 Lymph % (Auto) 17.4 L [place] % (Auto) 10.7 Eos % (Auto) 0.4 L Baso % (Auto) 0.3 Neut # (Auto) 6000 Lymph # (Auto) 1500 [place] # (Auto) 900 Eos # (Auto) 0 Baso # (Auto) 0 Sodium 135 L Potassium 4.4 Chloride 98 Carbon Dioxide 30 BUN 13 Creatinine 0.78 Estimated GFR > 60 BUN/Creatinine Ratio 16.7 Glucose 128 H D Lactate 1.5 Calcium 9.1 Magnesium 1.7 Total Bilirubin 0.9 AST 34 ALT 21 Alkaline Phosphatase 36 L Total Protein 6.6 Albumin 3.9 Globulin 2.7 Albumin/Globulin Ratio 1.4 Lipase Ur Bilirubin Confirm Urine RBC Urine WBC Ur Squamous Epith Cells Urine Bacteria Urine Mucus Ur Culture Indicated? Vol Urine Centrifuged [facility] Medical History Cervical radiculopathy Cervicalgia Cervical spondylosis DJD (degenerative joint disease), cervical Depression, major, recurrent Coronary artery disease Tobacco use disorder History of prostate cancer Generalized anxiety disorder Mixed hyperlipidemia Polyneuropathy, unspecified Type 2 diabetes mellitus with polyneuropathy Surgical History History of fusion of cervical spine H/O prostatectomy Social History household members: spouse Smoking Status: Former smoker alcohol intake: current Assessment & Plan Assessment & Plan narrative: 1. Abdominal pain with concerns for biliary colic. HIDA scan was aborted. We will follow clinically. We will repeat liver functions in the morning and treat pain symptomatically. -no further imaging at this point. 2. Nausea. Zofran as needed.. 3. Coronary artery disease. Resume the home medications. He denies chest pain. 4. Diabetes mellitus type 2. Hold the home glipizide for now since patient is n.p.o. and watch the blood sugars every 6 hours with insulin sliding scale 5. Anxiety. Xanax as needed 6. GI prophylaxis will be with Protonix 7. DVT prophylaxis will be with SCDs and encourage ambulation Patient will be admitted under observation status. For now he is a full code Time Spent With Patient Time with patient: 30 to 49 minutes with 50% spent counseling/coordinating care Quality VTE Deep Vein Thrombosis/Pulmonary Embolism Present on Admission: No
[2023-11-24] MEDS: EZETIMIBE 10 MG TABLET PO (08:24)
[2023-11-24] MEDS: CYCLOBENZAPRINE 10 MG TABLET PO ×3 (08:24→20:18)
[2023-11-24] MEDS: BUSPIRONE 5 MG TABLET 15 MG PO ×3 (08:24→20:18)
[2023-11-24] MEDS: ATORVASTATIN 20 MG TABLET PO (08:24)
[2023-11-24] MEDS: LOSARTAN 25 MG TABLET PO (08:24)
[2023-11-24] MEDS: CLOPIDOGREL 75 MG TABLET PO (08:24)
[2023-11-24] MEDS: DULOXETINE 30 MG CAPSULE 60 MG PO ×2 (08:26→20:18)
[2023-11-24] MEDS: PANTOPRAZOLE 40 MG VIAL IV (08:26)
[2023-11-24] MEDS: SODIUM CHLORIDE 0.9% 1,000 ML 100 ML IV ×2 (08:35→23:16)
[2023-11-24] MEDS: HYDROMORPHONE 0.5 MG INJ IV (13:35)
[2023-11-24] MEDS: OXYCODONE/ACETAMINOPHEN 5/325 TABLET 1 TAB PO (15:55)
--- NOTE | 2023-11-24 17:03 | CM.DANOTE ---
Brief DCP Assessment Note Pt is a 68yo M here under OBS status following abdominal pain. Dr. yLnch recommended a HIDA scan at [facility] and then transfer back here for continuation of care, but this was aborted due to pain. PCP Justin Payer [employer] Medicare and self pay [employer] reviewed EMR. Per provider PN, no further imaging planned at this time. No obvious CM needs identified from chart review. Lives with spouse in [place]. Did not meet with today due to triaging needs. Plan: likely home with spouse when stable. No obvious CM needs identified from chart review. CM team will continue to follow as needed. ADARSH Galaviz Discharge Planning/Care Management CM Discharge Assessment Start: 11/24/23 17:02 Freq: Status: Active Protocol: Document 11/24/23 17:02 (Rec: 11/24/23 17:03 [id number]) Discharge Planning Assessment Assigned Medical Office Assistant ADARSH Merino DPOA/Assigned Designee Name Savanah Lehman, spouse Contact Information [phone] Advance Directives? Yes Advance Directives on File No History Provided By Patient Prior Living Arrangements House Household Members spouse Whiteboard Updated in Patient Room with No name and ext. # of Medical Office Assistant Review Status In Process Next Review Type Continued Stay Review
[2023-11-24] MEDS: TRAZODONE 50 MG TABLET 100 MG PO (20:18)
[2023-11-24] MEDS: PREGABALIN 25 MG CAPSULE PO (20:18)
[2023-11-25 05:23] LABS: Hematocrit 39.9 % (41-53); Hemoglobin 13.7 g/dL (13.5-17.5); Mean Corpuscular HGB Conc 34.3 % (30-36); Mean Corpuscular Hemoglobin 30.6 PG (26-34); Mean Corpuscular Volume 89.2 fL (80-100); Platelet Count 163 X10^3/uL (150-400); Red Blood Cell Count 4.48 X10^6/uL (4.5-5.9); Red Cell Distribution Width 13.3 % (11.6-14.8); White Blood Cell Count 6.9 X10^3/uL (4.5-11.0)
[2023-11-25 05:40] LABS: Alanine Aminotransferase 21 IU/L (<50); Albumin 3.5 g/dL (3.5-5.0); Albumin Globulin Ratio 1.2 (1.0-2.8); Alkaline Phosphatase 41 U/L (38-126); Aspartate Aminotransferase 31 IU/L (17-59); BUN Creatinine Ratio 14.3 (6-22); Bilirubin Total 0.7 mg/dL (0.2-1.3); Blood Urea Nitrogen 10 mg/dL (9-20); Calcium 8.6 mg/dL (8.4-10.2); Carbon Dioxide 28 mmol/L (22-32); Chloride 104 mmol/L (98-107); Estimated Glomerular Filt Rate > 60 mL/min (>60); Globulin 2.9 g/dL (1.7-4.1); Glucose 115 mg/dL (80-110); HEMOLYSIS < 15 (0-50); Potassium 3.8 mmol/L (3.4-5.1); Sodium 137 mmol/L (137-145); Total Protein 6.4 g/dL (6.3-8.2)
[2023-11-25 07:02] LABS: Magnesium 1.7 mg/dL (1.6-2.3)
[2023-11-25 07:06] VITALS: BP 128/97; PULSE 86; RESP 18; TEMP 37.1; O2SAT 96
[2023-11-25 09:00] VITALS: BP 122/95; PULSE 82; RESP 18; TEMP 36.9; O2SAT 98
[2023-11-25] MEDS: PANTOPRAZOLE 40 MG VIAL IV (09:24)
[2023-11-25] MEDS: OXYCODONE/ACETAMINOPHEN 5/325 TABLET 1 TAB PO (09:27)
[2023-11-25] MEDS: BUSPIRONE 5 MG TABLET 15 MG PO (09:27)
[2023-11-25] MEDS: CYCLOBENZAPRINE 10 MG TABLET PO (09:28)
[2023-11-25] MEDS: DULOXETINE 30 MG CAPSULE 60 MG PO (09:28)
[2023-11-25] MEDS: ATORVASTATIN 20 MG TABLET PO (09:28)
[2023-11-25] MEDS: LOSARTAN 25 MG TABLET PO (09:28)
[2023-11-25] MEDS: CLOPIDOGREL 75 MG TABLET PO (09:28)
[2023-11-25] MEDS: EZETIMIBE 10 MG TABLET PO (09:28)
[2023-11-25] MEDS: SODIUM CHLORIDE 0.9% 1,000 ML 100 ML IV (09:51)
[2023-11-25 11:30] VITALS: BP 131/84; PULSE 78; RESP 16; TEMP 36.7; O2SAT 94
[2023-11-25] MEDS: MAGNESIUM CHLORIDE 64 MG TABLET 128 MG PO (12:06)
--- NOTE | 2023-11-25 12:35 | P.DS_ITS ---
History of Present Illness History of Present Illness Date Patient Seen: 11/23/23 Chief complaint: R/ ABD pain/ here T-1 Narrative: 68 years old male with a past medical history of hypertension, diabetes, coronary artery disease, dyslipidemia prostate cancer and multiple other medical issues presents emergency room for persistent abdominal pain mainly in the right upper quadrant with the nausea. Reports the pain is more acute in the past few days but the nausea has been ongoing for the past several months. Denies any fever episodes. Denies any bowel movement issues or bladder issues. Patient was previously evaluated in the emergency room 24 hours prior with similar complaints and was discharged home with conservative management after workup including a CT scan of the abdomen showed no acute process. Currently returns due to persistent pain not controlled with oral medications. Noted to be tender in the right upper quadrant with positive Nettles sign and an ultrasound is concerning for possible dilated CBD but normal LFTs. Emergency room discussed with the on-call surgeon?Dr. Lynch who recommended a HIDA scan that the scan could be done at [facility] with possible transfer being arranged to the hospital and return back to [facility] for continuation of care. Due to persistent symptoms, he was admitted for further evaluation Discharge Providers Provider Date of admission: 11/23/23 20:05 Discharge Date: 11/25/23 Primary care physician: Lela Anderson MD Consults: 11/23/23 19:48 Consult to General Surgery Stat Comment: Consulting Provider: Juan Pablo Lynch Reason for consultation: RUQ ABD PAIN, ABNORMAL GB US Has provider been notified: Yes Discharge provider: Ziggy Dodd MD Summary Hospital Course Discharge Diagnosis: 1. Biliary colic. HIDA scan was aborted (at [facility]) due to inability to lay still. 2. Nausea. Resolved. 3. Coronary artery disease. Stable. Resumed the home medications. 4. Diabetes mellitus type 2. Used correctional insulin. 5. Anxiety. Xanax as needed Hospital Course: The patient was admitted with abdominal pain which was primarily right upper quadrant. At the time of admission his CT was fairly unremarkable of the abdomen and ultrasound revealed a normal gallbladder, a large common bile duct, and a positive sonographic Homans sign. The patient was treated symptomatically pain medications and an attempt was made to perform a HIDA scan at [facility] on the day of admission. The patient was unable to comply because he would to lie still for longer than he could. This study was recommended when the patient was initially admitted by Dr. Lynch, of General surgery. The patient had normal liver function tests and improved with symptomatic treatment. In the day of discharge he had complete resolution of the symptoms and was able to advance diet without difficulty. There was no evidence of cardiac ischemia with his cardiac history. The case was discussed briefly with his primary care provider, Dr. Khan as well. He will have close follow up with his primary care doctor. Status at Discharge Cognitive/behavioral status at discharge: oriented Functional status at discharge: independent ambulation Overall status at discharge: patient is back to baseline Time Spent with Patient Time spent: Greater than 30 minutes Exam Vital Signs (past 8 hours): - 11/25/23 07:06 11/25/23 07:06 11/25/23 09:00 Temperature 98.7 F 98.5 F Pulse Rate 86 82 Respiratory Rate 18 18 Blood Pressure 128/97 H 122/95 H Pulse Oximetry 96 98 Oxygen Flow Rate 0 Oxygen Delivery Method Room Air Oxygen Flow Rate 0 Narrative Exam Narrative: NAD Lungs clear with normal effort Heart regular without murmur. Abdomen soft. Non tender. No leg edema. Objective Imaging US - abdomen: Radiologist's impression: IMPRESSION: Normal appearing gallbladder. However, the sonographic Nettles sign is positive. The common bile duct measures 9 mm, which is mildly dilated and similar to the CT performed earlier in the day. - If clinically appropriate, an MRCP could be considered for further evaluation (assuming that there is no contraindication to MRI). CT scan - abdomen: Radiologist's impression: MPRESSION: Colonic diverticulosis without CT evidence of acute diverticulitis. Hepatic steatosis. Nonobstructive left inferior pole 3-4 mm calculus. No hydroureteronephrosis. Gastric emptying study. : Radiologist's impression: The percentage of tracer retained at specific time points are as follows: Time pointPercent gastric retentionNormal range 30 [id number]%70% or more 1 hour47%30% to 90% 2 hours14%60% or less 3 hours3%30% or less 4 hours-10% or less IMPRESSION: Normal gastric emptying study. Dictated by: David Fatima M.D. on 11/16/2023 at 12:36 Labs 11/25/23 04:33 11/25/23 04:33 Labs: Laboratory Results - last 24 hr 11/25/23 04:33 WBC 6.9 RBC 4.48 L Hgb 13.7 Hct 39.9 L MCV 89.2 MCH 30.6 MCHC 34.3 RDW 13.3 Plt Count 163 Sodium 137 Potassium 3.8 Chloride 104 Carbon Dioxide 28 BUN 10 Creatinine 0.70 Estimated GFR > 60 BUN/Creatinine Ratio 14.3 Glucose 115 H Calcium 8.6 Magnesium 1.7 Total Bilirubin 0.7 AST 31 ALT 21 Alkaline Phosphatase 41 Total Protein 6.4 Albumin 3.5 Globulin 2.9 Albumin/Globulin Ratio 1.2 [facility] Medical History Cervical radiculopathy Cervicalgia Cervical spondylosis DJD (degenerative joint disease), cervical Depression, major, recurrent Coronary artery disease Tobacco use disorder History of prostate cancer Generalized anxiety disorder Mixed hyperlipidemia Polyneuropathy, unspecified Type 2 diabetes mellitus with polyneuropathy Surgical History History of fusion of cervical spine H/O prostatectomy Social History household members: spouse Smoking Status: Former smoker alcohol intake: current Discharge Assessment & Plan Assessment and Plan Assessment: 1. Biliary colic. HIDA scan was aborted (at [facility]) due to inability to lay still. 2. Nausea. Resolved. 3. Coronary artery disease. Stable. Resumed the home medications. 4. Diabetes mellitus type 2. Used correctional insulin. 5. Anxiety. Xanax as needed Plan of Treatment: Pain resolved. Possible biliary colick. He is back to baseline. Home without medication changes. Follow up with PCP within 6 days. Discharge Plan Discharge Plan Patient Disposition: Home Provider Discharge Comment: Stable for discharge. Discharge orders & Medications Prescriptions: Continued ezetimibe 10 mg tablet 10 mg PO DAILY omeprazole 20 mg capsule,delayed release(DR/EC) 20 mg PO DAILY Qty: 30 3RF trazodone 100 mg tablet 100 mg PO DAILY pregabalin 25 mg capsule 25 mg PO BEDTIME Qty: 30 0RF cyclobenzaprine 10 mg tablet 10 mg PO TID Qty: 90 0RF clopidogrel 75 mg tablet 75 mg PO DAILY Qty: 90 3RF buspirone 15 mg tablet 15 mg PO TID Qty: 180 3RF rosuvastatin 10 mg tablet 10 mg PO DAILY Qty: 90 3RF duloxetine 60 mg capsule,delayed release(DR/EC) 60 mg PO BID famotidine [Pepcid] 20 mg tablet 20 mg PO DAILY Qty: 30 3RF glipizide 5 mg tablet 5 mg PO BID Qty: 180 3RF metformin 850 mg tablet 850 mg PO BID Qty: 180 3RF (DME) Accu-Chek Guide test strips Strip See Rx Instructions .ROUTE .MEDSUPPLY Qty: 10 Rx Instructions: As directed hydroxyzine HCl 25 mg tablet 25 mg PO BID methocarbamol 500 mg tablet 500 mg PO TID Qty: 60 3RF Rx Instructions: 1-2 tablets three times daily as needed for spasms/pain losartan 25 mg tablet 25 mg PO DAILY Medication counseling provided by Pharmacist: No Follow up/Referrals: Lela Anderson MD [Primary Care Provider] - Discharge Health Status Multidrug resistant organism: No MDRO Diet/Activity/Treatments Diet: Diet as Tolerated Skin/Wound/Dressing Care Report to your healthcare provider any signs of infection, such as:: chills, fever and increased pain Visit Report/Discharge Packet Stand Alone Forms: Patient Portal/API Discharge Data Primary Care Provider: Lela Anderson Attending Provider: Zoran Paez Admit Date/Time: 11/23/23 20:05 Quality VTE Deep Vein Thrombosis/Pulmonary Embolism Present on Admission: No
== END 2023-11-25 13:34 | disposition home or self-care (01) ==
LOC: ED 19:48 → AC 20:06
PROVIDERS: Emergency Medicine; Hospitalist; Admitting Provider Internal Medicine; Emergency Provider Emergency Medicine; Family Provider Internal Medicine; PCP Family Medicine; Referring Provider Emergency Medicine; Visit Provider Internal Medicine
DX: K80.50 Calculus of bile duct without cholangitis or cholecystitis without obstruction (principal); E11.9 Type 2 diabetes mellitus without complications; Z79.4 Long term (current) use of insulin; F41.9 Anxiety disorder, unspecified; I25.10 Atherosclerotic heart disease of native coronary artery without angina pectoris; R11.0 Nausea; R10.11 Right upper quadrant pain
CPT/HCPCS: 36415; 74177; 76705; 80053; 81003; 81015; 82550; 82962; 83605; 83690; 83735; 84484; 85025; 85027; 85610; 93005; 93010; 96361; 96365; 96374; 96375; 96376; 99284; G0378; C9113; J0136; J1170; J1885; J2270; J2405; Q9967

== ENCOUNTER → 2023-11-30 16:11 | Outpatient (CLI) | payer OTHER, SELFPAY ==
[2023-11-23 20:53] VITALS: BMI 23.7
--- NOTE | 2023-11-30 16:12 | DI.MRI.S_ITS ---
PROCEDURE: MR CERVICAL SPINE WO CON INDICATIONS: Chronic pain, cervical spine TECHNIQUE: Noncontrast sagittal T1 spin echo and T2 fast spin echo, sagittal STIR, foraminal oblique sagittal T2 fast spin echo, and axial gradient echo or T2 fast spin echo through the cervical spine. COMPARISON: [facility], MR, C-SPINE WITHOUT CONTRAST, 09/06/2013, 14:29. [facility], MR, C-SPINE W&WO CONTRAST, 09/24/2015, 16:51. FINDINGS: Image quality: Excellent. Alignment and Curvature: There is reversal cervical curvature. Multilevel anterior fusion from C4 through C7 is present. Bone Marrow: Marrow demonstrates normal overall signal. Spinal Cord: Visualized spinal cord has normal size and signal. No cerebellar tonsillar herniation. Paraspinous Soft Tissues: No paravertebral masses. Prevertebral soft tissues are normal in thickness. C2-C3: Mild disc bulge with mild spinal stenosis. Moderate right and severe left foraminal narrowing with uncovertebral hypertrophy, progressive. C3-C4: Mild disc bulge with mild spinal stenosis. Severe right and moderate to severe left foraminal narrowing, progressive on the left with uncovertebral hypertrophy. C4-C5: Operative level without spinal stenosis. Moderate right and [id number]-rw-[id number] left foraminal narrowing, progressive on the left compared to prior exam. C5-C6: Operative level without spinal stenosis. Rsme-qt-[id number] right foraminal narrowing, progressive. C6-C7: Operative level without spinal stenosis. Bvmg-ir-[id number] bilateral foraminal narrowing, progressive. C7-T1: Mild disc bulge with minimal effacement of the anterior thecal sac. Mild to moderate bilateral foraminal narrowing slightly progressive. IMPRESSION: Postsurgical changes. Multilevel foraminal narrowing with multiple levels progressive compared to prior exam. Dictated by: Court Vázquez M.D. on 11/30/2023 at 18:22 Approved by: Court Vázquez M.D. on 11/30/2023 at 18:25
== END ==
PROVIDERS: Family Provider Internal Medicine; PCP Internal Medicine; Referring Provider Family Medicine; Visit Provider Family Medicine
DX: M47.812 Spondylosis without myelopathy or radiculopathy, cervical region (principal); M48.02 Spinal stenosis, cervical region
CPT/HCPCS: 72141

== ENCOUNTER 2024-01-12 15:02 | Outpatient (CLI) | payer MEDICARE, SELFPAY ==
[2024-01-12] VITALS (8 sets, daily range): BP systolic 126–172; BP diastolic 86–108; PULSE 79–91; RESP 12–18; TEMP 36.7; O2SAT 96–100
--- NOTE | 2024-01-12 | DI.RAD.S_ITS ---
PROCEDURE: PAIN C/T INTERLAMINAR INJECT INDICATIONS: CERVICAL RADICULOPATHY COMPARISON: MR, C-SPINE W&WO CONTRAST, 09/24/2015, 16:51. [facility], CR, XR CERVICAL SPINE 2V OR 3V, 09/21/2023, 12:57. FINDINGS: Fluoroscopic spot filming was performed to verify placement of spinal needles at the T2 level(s), as labeled on the films. Appropriate location(s) of the needle tip(s) was confirmed by injection of iodinated contrast. IMPRESSION: Fluoroscopy for pain management. Dictated by: David Fatima M.D. on 01/12/2024 at 17:04 Approved by: David Fatima M.D. on 01/12/2024 at 17:05
[2024-01-12] MEDS: MIDAZOLAM 2 MG/2 ML VIAL 1 MG IV (15:25)
[2024-01-12] MEDS: DEXAMETHASONE 10 MG/ML VIAL INJ (15:32)
[2024-01-12] MEDS: iopamidoL 15 ML VIAL 3 ML INJ (15:33)
--- NOTE | 2024-01-12 16:18 | P.PCN_ITS ---
Date/Time/Diagnoses Date of procedure: 01/12/24 Time of procedure: 15:30 Procedure Notes Physician: Brandon Taylor Total Fluoroscopy time (seconds): 21 Total sedation minutes: 16 Procedure in detail & Post-procedure care: T1-2 Interlaminar Epidural Steroid Injection Indications: Anusha is presenting for treatment of cervical radiculopathy with neck and arm pain. Preoperative diagnosis: Cervical radiculopathy Postoperative diagnosis: Same Focused Examination: Ax3 Mood and affect are normal Vital Signs: VSS ASA: 3 Patient on Plavix which was held for 7 days prior to this injection. He was instructed to restart this medication 24 hours after injection. Clearance obtained by his sas statistical programmer prior to stopping. He is also diabetic and fingerstick was 90 prior to injection. Consent: Risks, benefits and alternatives discussed at a prior clinic visit and the patient voiced understanding at that time. Prior to today's injection, we again went over the risks, benefits and alternatives. Following review of allergies and potential side effects/complications, including, but not necessarily limited to, infection, allergic reaction, local tissue breakdown, stroke, temporary or permanent nerve injury, paralysis, and possible , the patient indicated that they understood and agreed to proceed.? A consent document was signed by the patient, witnessed by a nurse and placed in the patient's chart.? Additionally, other treatment options including medications and physical therapy were reviewed with the patient. All questions were answered. Site was then marked. Anesthesia: After review of previous anesthetic history and IV conscious sedation, the patient was deemed safe to proceed with today's procedure with IV conscious sedation. IV sedation was accomplished with midazolam 1 mg adminis tered by the RN after physician order. Sedation was titrated to patient comfort during the course of the procedure. Patient remained responsive to all verbal commands. Position: Prone Monitoring: NIBP, Pulse oximetry, 3 lead EKG Needle used: 18 G 3.5? Tuohy Contrast: Isovue 300-M 2 mL Injectate: Dexamethasone 10 mg followed by Normal Saline 2 mL Technique: The skin was prepped with chloraprep and then draped in a sterile fashion. Time out was performed as per protocol. Oxygen applied via NC. Skin and subcutaneous structures of the needle entry site was then infiltrated with 3 mL of lidocaine 1%. Under AP, lateral and contralateral oblique fluoroscopic control, the Tuohy needle was guided into the T1-2 epidural space. The space was accessed with loss of resistance technique. Isovue 300-M was then injected and the spread was consistent with the epidural space. There was no evidence for intravascular or intrathecal uptake. After negative aspiration, the above- mentioned injectate was then slowly administered and the needle withdrawn. The patient expressed no unusual discomfort or paresthesias during the injection. Band-Aids applied to injection sites. EBL: less than 1 ml Complications: None Post Procedure: Patient was taken to the recovery and monitored. The patient was provided a Pain Log to continue to record the patient's response to the target- specific procedure prior to the patient's follow-up visit with the referring physician. Patient was stable upon discharge. Detailed post procedure instructions were provided. Patient was asked to call in the event of worsening pain, fever, weakness, numbness or bladder or bowel incontinence.
== END 2024-01-12 16:02 | disposition home or self-care (01) ==
LOC: RAD 15:02
PROVIDERS: Family Provider Internal Medicine; PCP Family Medicine; Referring Provider Anesthesiology; Visit Provider Anesthesiology
DX: M54.12 Radiculopathy, cervical region (principal); E11.9 Type 2 diabetes mellitus without complications
CPT/HCPCS: 62321; 82962; 99152; J1100; J2250

== ENCOUNTER → 2024-02-02 08:59 | Outpatient (CLI) | payer MEDICARE, SELFPAY ==
[2024-02-02 10:10] LABS: Add Manual Diff / Slide Review NO; Basophils Absolute Auto 0 /uL (0-100); Basophils Percent Auto 0.5 % (0-2); Eosinophils Absolute Auto 100 /uL (0-450); Eosinophils Percent Auto 2.4 % (2-4); Hematocrit 43.3 % (41-53); Hemoglobin 14.7 g/dL (13.5-17.5); Lymphocytes Absolute Auto 2400 /uL (1100-4500); Mean Corpuscular Hemoglobin 31.2 PG (26-34); Mean Corpuscular Volume 91.7 fL (80-100); Monocytes Absolute Auto 500 /uL (0-900); Monocytes Percent Auto 7.6 % (3-14); Neutrophils Absolute Auto 3000 /uL (1500-7000); Neutrophils Percent Auto 50.5 % (50-75); Platelet Count 225 X10^3/uL (150-400); Red Blood Cell Count 4.72 X10^6/uL (4.5-5.9); Red Cell Distribution Width 13.9 % (11.6-14.8)
[2024-02-02 10:42] LABS: Cholesterol 140 mg/dL (140-199); HDL Cholesterol 58 mg/dL (40-60); LDL Cholesterol Calculated 53 mg/dL (<100); Triglycerides 146 mg/dL (35-150)
[2024-02-02 10:44] LABS: Hemoglobin A1C% w Est Avg Glu 7.2 % (4.0-6.0)
[2024-02-02 11:12] LABS: Cortisol AM (Before 10AM) 17.1 ug/dL (4.46-22.7)
== END ==
PROVIDERS: Family Provider Internal Medicine; PCP Family Medicine; Referring Provider Family Medicine; Visit Provider Family Medicine
DX: I95.1 Orthostatic hypotension (principal); E78.2 Mixed hyperlipidemia; E11.42 Type 2 diabetes mellitus with diabetic polyneuropathy; R51.9 Headache, unspecified
CPT/HCPCS: 36415; 80061; 82533; 83036; 85025

== ENCOUNTER 2024-02-02 13:45 | Outpatient (RCR) | payer MEDICARE, OTHER, SELFPAY ==
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
--- NOTE | 2023-11-03 13:20 | PT.OPPOC ---
Physical, Occupational & Speech Therapy At [facility] Current Diagnoses Cervicalgia (11/03/23) Visit Care Team Role Provider Type Vinod Khan MD Attending Provider Physician Family Provider Primary Care Provider Referring Provider Specialty: Internal Medicine Address: [address] [place] [address], [id number] Email: [email or web address] Plan Of Care PT-OP-T Assessment and Plan Start: 11/02/23 13:02 Freq: Status: Active Protocol: Document 11/03/23 11:16 MB (Rec: 11/03/23 11:47 MB [id number]) Physical Therapy Assessment Goals 3 Impairment Evidence of imbalance Hospice Clinical Manager Goal (LTG) Pt will perform WNLs on a standardized balance test to decrease fall risk and improve function. LTG Duration 8 weeks 2 Impairment Lack of HEP Hospice Clinical Manager Goal (LTG) Pt will perform progressive HEP with I including postural, myofascial release, pelvic realignment to help overall spinal positioning to help neck, strengthening, flexibility and balance exercises to improve pain and function. LTG Duration 8 weeks 1 Impairment NDI score reflects 46% disability [facility] Goal (LTG) Pt will present with NDI score reflecting no more than 35% disability to improve quality of life, pain and function. LTG Duration 8 weeks Assessment Summary Assessment Pt is a 68 y/o male presenting with 40 year history of neck problems. He underwent cervical surgeries 14 and 11 years ago. He states he has been doing pretty well until about 6 months ago when the pain got pretty severe. He cannot report any precipitating events but with further history, pt had [place] in January of 2023 and increasing depression. He presents with decreased cervical ROM, reports mild B numbness and tingling in both hands and in fingers and occ trouble with fine motor tasks. He has a little more trouble reading with eye changes. No other issues with swallowing or sensation issues in face. No acute hearing and pt does have occ light-headedness with getting up quickly. He has postural changes including pelvic obliquities, left head rests in mild left SB in supine and he has myofascial tension globally in B upper traps, cervical paraspinals, SCM. Pt will benefit from PT to improve myofascial tension and to work on posture and balance. He may benefit from a pain specialist consult and he is inquiring about injections. Physical Therapy Plan Frequency and Duration Frequency of Treatment 1-2x/wk Duration of treatment (weeks) 8 Plan of Care Start Date 11/03/23 Plan of Care End Date 01/03/24 Therapeutic Interventions Therapeutic Interventions Balance Training,Canalithic Repositioning,Coordination Training,Gait Training,Home Exercise Program,Joint Mobilizations,Manual Therapy, Neuromuscular Re-education, Patient/Caregiver Education, Self-Care/Home Management, Sensory Integration,Soft Tissue Mobilization,Taping, Therapeutic Activities, Therapeutic Exercises, Vestibular Rehabilitation Modalities Cold Pack/Ice Massage,Electric Stimulation,Hot Packs, Ultrasound Other Referrals/Consults Referrals/Consults Recommended Consider pain specialist consult, pt is inquiring about injections Next Visit Focus/Plan Next Note Type Treatment Note Next Visit Plan Initiate pelvic realignment exercises, diaphragm breathing and manual work In future treatments, consider FGA, gentle flexibility exercises, balance exercise and posturual strengthening for intrascapular muscles and shoulder. Flexibility can include thoracic flexibility. Plan of Care Dates Plan of Care Start Date 11/03/23 Plan of Care End Date 01/03/24 Electronically Signed by: Sneha Whitehead PT 11/03/23 2813 If you are in agreement with this Plan of Care, please return a signed and dated copy. I have reviewed this Plan of Care and certify that the skilled therapy services above are required to meet the patient?s needs. Physician Signature Date Printed Name and Credentials Clinical Instructor Signature Printed Name and Credentials
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
--- NOTE | 2023-11-24 08:56 | PT-OP ANOTE ---
PT received note from front office that pt cancelled appointment today after ED visit yesterday, stating he needs to rest. PT reviews ED note and pt with right UQ pain, positive Nettles's sign and awaiting HIDA scan. Will con't to monitor and con't PT or discon't OPPT as appropriate.
--- NOTE | 2023-11-28 11:28 | PT-OP ANOTE ---
Spoke with Anusha and he was hospitalized for three days due to his upper quadrant issue. He sees PCP tomorrow 11/29. 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
--- NOTE | 2023-12-05 08:14 | PT-OP ANOTE ---
Pt has returned to Dr. Taylor after hospitalization and the note says con't PT. Pt had repeat cervical MRI on 11/29 which revealed progression in degenerative changes since last test. Pt scheduled for OPPT for next date. It appears that pt is getting injections for neck pain and will confirm at his next visit.
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
--- NOTE | 2023-12-20 15:03 | PT.OPPOC ---
Physical, Occupational & Speech Therapy At [facility] Current Diagnoses Cervicalgia (12/20/23) Visit Care Team Role Provider Type Vinod Khan MD Attending Provider Physician Family Provider Primary Care Provider Referring Provider Specialty: Internal Medicine Address: [address] [place] [address], [id number] Email: [email or web address] Plan Of Care PT-OP-T Assessment and Plan Start: 11/02/23 13:02 Freq: Status: Active Protocol: Document 12/20/23 14:30 MB (Rec: 12/20/23 15:03 MB [id number]) Physical Therapy Assessment Goals 3 Impairment Evidence of imbalance Branch Store Manager Goal (LTG) Pt will perform WNLs on a standardized balance test to decrease fall risk and improve function. 11/19/2023 increased single leg stance end of session right LE see assessment 12/20/23: FGA score is 21/30 with most trouble with horizontal head turns, gait with eyes closed and tandem gait LTG Duration 8 weeks 2 Impairment Lack of HEP Branch Store Manager Goal (LTG) Pt will perform progressive HEP with I including postural, myofascial release, pelvic realignment to help overall spinal positioning to help neck, strengthening, flexibility and balance exercises to improve pain and function. 12/20/23: Pt is perform cervical ROM exercises: flexion and extension, and clam with the band LTG Duration 8 weeks 1 Impairment NDI score reflects 46% disability Branch Store Manager Goal (LTG) Pt will present with NDI score reflecting no more than 35% disability to improve quality of life, pain and function. 12/20/23: NDI score reflects 52 % impairment and pt states that his neck is as bad as it ever was and now his right hand is bothering him with the numbness LTG Duration 8 weeks Assessment Summary Assessment Pt's neck pain is the same and his right hand paresthesias are worsening. He has not had PT in over a month d/t hospitalization and scheduling and so PT needs more time to make a difference. Pt presents with increased fall risk with FGA testing today and will benefit from further balance exercises in future treatments . AROM today in standing: pt rests with head in 7 deg of extension and he can extend another 18 deg; flexion 29 deg ; head rests in 3 deg right rotation and he can rotate another 35 deg to the right; left rotation to 40 deg and pt tends to move shoulders with cervical rotation. Shoulder abd, flexion, elbow flexion and extension all 5/5. Numbness from medial elbow to medial 3rd, all of 4th and all of 5th digits on palmar more than distal side of right hand . Pt reports bad headaches and he is sleeping well with meds . He is hydrating well and not drinking a lot of caffeine or alcohol. Physical Therapy Plan Frequency and Duration Frequency of Treatment 1-2x/wk Duration of treatment (weeks) 7 Plan of Care Start Date 12/20/23 Plan of Care End Date 02/08/24 Therapeutic Interventions Therapeutic Interventions Balance Training,Canalithic Repositioning,Coordination Training,Gait Training,Home Exercise Program,Joint Mobilizations,Manual Therapy, Neuromuscular Re-education, Patient/Caregiver Education, Self-Care/Home Management, Sensory Integration,Soft Tissue Mobilization,Taping, Therapeutic Activities, Therapeutic Exercises, Vestibular Rehabilitation Modalities Cold Pack/Ice Massage,Electric Stimulation,Hot Packs, Ultrasound Next Visit Focus/Plan Next Note Type Treatment Note Next Visit Plan Consider FGA activities for home walking near wall: EC, horizontal head turns and tandem gait, ongoing manual work for neck and thoracic spine, thoracic mobility exercises, review pelvic realignment exercises and ongoing diaphragm breathing and progressive core strengthening Plan of Care Dates Plan of Care Start Date 12/20/23 Plan of Care End Date 02/08/24 Electronically Signed by: Sneha Whitehead PT 12/20/23 0523 If you are in agreement with this Plan of Care, please return a signed and dated copy. I have reviewed this Plan of Care and certify that the skilled therapy services above are required to meet the patient?s needs. Physician Signature Date Printed Name and Credentials Clinical Instructor Signature Printed Name and Credentials
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
--- NOTE | 2024-01-19 14:31 | PT.OPPOC ---
Physical, Occupational & Speech Therapy At [facility] Current Diagnoses Cervicalgia (01/19/24) Visit Care Team Role Provider Type Vinod Khan MD Attending Provider Physician Family Provider Primary Care Provider Referring Provider Specialty: Internal Medicine Address: [address] [place] [address], [id number] Email: [email or web address] Plan Of Care PT-OP-T Assessment and Plan Start: 11/02/23 13:02 Freq: Status: Active Protocol: Document 01/19/24 13:50 MB (Rec: 01/19/24 14:31 MB [id number]) Physical Therapy Assessment Goals 3 Impairment Evidence of imbalance Manufacturing Baker Goal (LTG) Pt will perform WNLs on a standardized balance test to decrease fall risk and improve function. 11/19/2023 increased single leg stance end of session right LE see assessment 12/20/23: FGA score is 21/30 with most trouble with horizontal head turns, gait with eyes closed and tandem gait 01/19/24: FGA score is 21/30 and pt may now be able to tolerate exercise for balance now that neck pain is better LTG Duration 4 weeks 2 Impairment Lack of HEP Half-Way Goal (LTG) Pt will perform progressive HEP with I including postural, myofascial release, pelvic realignment to help overall spinal positioning to help neck, strengthening, flexibility and balance exercises to improve pain and function. 12/20/23: Pt is perform cervical ROM exercises: flexion and extension, and clam with the band 01/19/24: Pt is doing squats and cervical rotation at home. He is performing incline push -ups as well. LTG Duration 4 weeks 1 Impairment NDI score reflects 46% disability Half-Way Goal (LTG) Pt will present with NDI score reflecting no more than 25% disability to improve quality of life, pain and function. 12/20/23: NDI score reflects 52 % impairment and pt states that his neck is as bad as it ever was and now his right hand is bothering him with the numbness. 01/19/24: NDI score: 36% impairment LTG Duration 4 weeks Assessment Summary Assessment Pt with much less pain and freer neck movement post- injection. NDI score is better and pt may now be able to tolerate mobility, balance and posture exercises. Physical Therapy Plan Frequency and Duration Frequency of Treatment 2x/Week Duration of treatment (weeks) 4 Plan of Care Start Date 01/19/24 Plan of Care End Date 02/08/24 Therapeutic Interventions Therapeutic Interventions Balance Training,Canalithic Repositioning,Coordination Training,Gait Training,Home Exercise Program,Joint Mobilizations,Manual Therapy, Neuromuscular Re-education, Patient/Caregiver Education, Self-Care/Home Management, Sensory Integration,Soft Tissue Mobilization,Taping, Therapeutic Activities, Therapeutic Exercises, Vestibular Rehabilitation Modalities Cold Pack/Ice Massage,Electric Stimulation,Hot Packs, Ultrasound Next Visit Focus/Plan Next Note Type Treatment Note Next Visit Plan Over several treatments: ongoing manual work for neck and thoracic spine, thoracic mobility exercises, review pelvic realignment exercises and progressive core strengthening including standing lateral slide, consider open book and further gentle thoracic mobility, consider intrascapular and shoulder ER strengthening with band in standing, consider body blade Plan of Care Dates Plan of Care Start Date 01/19/24 Plan of Care End Date 02/08/24 Electronically Signed by: Sneha Whitehead, PT 01/19/24 0502 If you are in agreement with this Plan of Care, please return a signed and dated copy. I have reviewed this Plan of Care and certify that the skilled therapy services above are required to meet the patient?s needs. Physician Signature Date Printed Name and Credentials Clinical Instructor Signature Printed Name and Credentials
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
== END 2024-02-10 14:16 | disposition home or self-care (01) ==
LOC: PHYS 13:45
PROVIDERS: Family Provider Internal Medicine; PCP Internal Medicine; Referring Provider Internal Medicine; Visit Provider Internal Medicine
DX: M54.2 Cervicalgia (principal)
CPT/HCPCS: 97110; 97112; 97140; 97162; 97530; 97535

== ENCOUNTER → 2024-04-12 14:38 | Outpatient (CLI) | payer MEDICARE, SELFPAY ==
[2024-04-12 15:12] LABS: Add Manual Diff / Slide Review NO; Basophils Absolute Auto 100 /uL (0-100); Basophils Percent Auto 0.7 % (0-2); Eosinophils Absolute Auto 100 /uL (0-450); Eosinophils Percent Auto 1.1 % (2-4); Hematocrit 45.2 % (41-53); Hemoglobin 15.4 g/dL (13.5-17.5); Lymphocytes Absolute Auto 1900 /uL (1100-4500); Lymphocytes Percent Auto 22.9 % (25-40); Mean Corpuscular HGB Conc 34.1 % (30-36); Mean Corpuscular Volume 91.1 fL (80-100); Monocytes Absolute Auto 600 /uL (0-900); Monocytes Percent Auto 7.5 % (3-14); Neutrophils Absolute Auto 5500 /uL (1500-7000); Neutrophils Percent Auto 67.8 % (50-75); Platelet Count 210 X10^3/uL (150-400); Red Blood Cell Count 4.97 X10^6/uL (4.5-5.9); Red Cell Distribution Width 13.1 % (11.6-14.8); White Blood Cell Count 8.2 X10^3/uL (4.5-11.0)
[2024-04-12 15:20] LABS: Hemoglobin A1C% w Est Avg Glu 6.7 % (4.0-6.0)
[2024-04-12 15:45] LABS: HEMOLYSIS 16 (0-50); Iron 107 ug/dL (49-181)
[2024-04-12 15:56] LABS: Percent Iron Saturation 27 % (20-50); Total Iron Binding Capacity 392 ug/dL (261-462); Transferrin 318 mg/dL (206-381)
[2024-04-12 16:16] LABS: TSH w/ Reflex to FT4 1.69 uIU/mL (0.47-4.68)
[2024-04-12 16:19] LABS: Ferritin 25 ng/mL (18-464)
== END ==
LOC: LAB 14:38
PROVIDERS: Family Provider Internal Medicine; PCP Family Medicine; Referring Provider Family Medicine; Visit Provider Family Medicine
DX: R53.83 Other fatigue (principal); E11.42 Type 2 diabetes mellitus with diabetic polyneuropathy
CPT/HCPCS: 36415; 82728; 83036; 83540; 83550; 84443; 85025

== ENCOUNTER → 2024-09-05 09:12 | Outpatient (CLI) | payer MEDICARE, SELFPAY ==
[2024-09-05 11:47] LABS: Vitamin B12 277 pg/mL (239-931)
== END ==
PROVIDERS: Family Provider Internal Medicine; PCP Family Medicine; Referring Provider Family Medicine; Visit Provider Family Medicine
DX: R53.83 Other fatigue (principal); F32.9 Major depressive disorder, single episode, unspecified
CPT/HCPCS: 36415; 82607; 84402; 84403

== ENCOUNTER → 2024-09-27 12:07 | Outpatient (CLI) | payer MEDICARE, SELFPAY ==
[2024-09-27 13:55] LABS: Hemoglobin A1C% w Est Avg Glu 6.5 % (4.0-6.0)
== END ==
PROVIDERS: Family Provider Internal Medicine; PCP Family Medicine; Referring Provider Family Medicine; Visit Provider Family Medicine
DX: E11.42 Type 2 diabetes mellitus with diabetic polyneuropathy (principal); R79.89 Other specified abnormal findings of blood chemistry
CPT/HCPCS: 36415; 83036; 84402; 84403

== ENCOUNTER → 2025-01-29 13:58 | Outpatient (CLI) | payer MEDICARE, SELFPAY ==
--- NOTE | 2025-01-29 13:59 | DI.US.S_ITS ---
PROCEDURE: US ABD AORTA ANEURYSM SCREEN INDICATIONS: AAA screening for history of tobacco use TECHNIQUE: Real-time scanning was performed of the aorta and proximal common iliac arteries, with image documentation. Ten images. COMPARISON: None. FINDINGS: Aorta: Abdominal aorta is normal in caliber throughout its length. Proximal 2.6 x 2.4 cm Mid aorta 2.3 x 1.9 cm Distal aorta 1.7 x 1.6 cm. Iliacs: Proximal common iliac arteries are normal in caliber. Right common iliac artery 1.0 cm Left common iliac artery 1.0 cm IMPRESSION: No ultrasound evidence of abdominal aortic aneurysm. Dictated by: Baljit Rubi M.D. on 01/29/2025 at 15:21 Approved by: Baljit Rubi M.D. on 01/29/2025 at 15:24
[2025-01-29 15:29] LABS: Alanine Aminotransferase 27 IU/L (<50); Albumin Globulin Ratio 1.8 (1.0-2.8); Alkaline Phosphatase 47 U/L (38-126); Aspartate Aminotransferase 26 IU/L (17-59); BUN Creatinine Ratio 19.6 (6-22); Bilirubin Total 0.8 mg/dL (0.2-1.3); Blood Urea Nitrogen 18 mg/dL (9-20); Calcium 10.4 mg/dL (8.4-10.2); Carbon Dioxide 30 mmol/L (22-32); Chloride 100 mmol/L (98-107); Estimated Glomerular Filt Rate > 60 mL/min (>60); Globulin 2.8 g/dL (1.7-4.1); Glucose 201 mg/dL (80-110); HEMOLYSIS 16 (0-50); Sodium 139 mmol/L (137-145); Total Protein 7.8 g/dL (6.3-8.2)
[2025-01-29 15:31] LABS: Potassium 5.4 mmol/L (3.4-5.1)
[2025-01-30 16:34] LABS: Hep C Virus Ab w/Reflex Quant NEGATIVE s/c (NEGATIVE)
== END ==
PROVIDERS: Family Provider Internal Medicine; PCP Family Medicine; Referring Provider Family Medicine; Visit Provider Family Medicine
DX: Z13.6 Encounter for screening for cardiovascular disorders (principal); Z87.891 Personal history of nicotine dependence; E11.42 Type 2 diabetes mellitus with diabetic polyneuropathy; I10 Essential (primary) hypertension; Z11.59 Encounter for screening for other viral diseases
CPT/HCPCS: 36415; 76706; 80053; 83036; 86803

== ENCOUNTER 2025-05-31 09:52 | Emergency (ER) | payer MEDICARE, SELFPAY ==
[2025-05-31 09:55] VITALS: PULSE 103; O2SAT 91
[2025-05-31 09:57] VITALS: BP 133/74; PULSE 94; O2SAT 95
[2025-05-31 10:00] VITALS: PULSE 101; O2SAT 95
[2025-05-31 10:01] VITALS: BP 133/74; PULSE 94; RESP 20; TEMP 36.7; O2SAT 95; BMI 21.6
--- NOTE | 2025-05-31 10:05 | DI.CT.S_ITS ---
PROCEDURE: CT LUMBAR SPINE WO CON INDICATIONS: fall TECHNIQUE: Noncontrast 3 mm thick sections acquired from the T12 level to the sacrum. Sagittal and coronal reformats were constructed. For radiation dose reduction, the following was used: automated exposure control. COMPARISON: [facility], CT, CT THORACIC SPINE WO CON, 05/31/2025, 10:11. FINDINGS: Image quality: Excellent. Bones: L1 is not completely included within the field of view. It is present on thoracic spine CT of 05/31/2025. There is trace anterolisthesis of L3 on L4, trace retrolisthesis of L5 on S1. Multilevel anterior osteophytes are most prominent L4-5. Multilevel degenerative disc space narrowing is present most severe that can disc at L3-4 and L4-5. Multilevel foraminal narrowing is present most severe at L3-4, L4-5. Scattered multilevel disc bulges. Soft tissues: No retroperitoneal masses or hematomas. Visualized aorta is normal in caliber. IMPRESSION: Degenerative change without visualized fracture. Dictated by: Court Vázquez M.D. on 05/31/2025 at 10:54 Approved by: Court Vázquez M.D. on 05/31/2025 at 10:56
--- NOTE | 2025-05-31 10:05 | DI.CT.S_ITS ---
PROCEDURE: CT CERVICAL SPINE WO CON INDICATIONS: fall TECHNIQUE: Noncontrast 3 mm thick sections acquired from the skull base to the T4 level. Sagittal and coronal reformats were then constructed. For radiation dose reduction, the following was used: automated exposure control, adjustment of mA and/or kV according to patient size. COMPARISON: [facility], CT, C-SPINE WITHOUT CONTRAST, 06/27/2015, 14:05. FINDINGS: Image quality: Excellent. Bones: No fractures or dislocations. Severe cervical spondylitic change. Remote ACDF from C4 through C7. No evidence of hardware failure or loosening. Multilevel bony foraminal narrowing. Advanced multilevel facet arthropathy. Visualized superior ribs are intact. Soft tissues: Prevertebral soft tissues are normal in thickness. No paravertebral hematomas. No apical pneumothoraces. IMPRESSION: No displaced fracture or traumatic subluxation. Expected appearance of orthopedic surgical hardware. Severe diffuse cervical spondylosis. Dictated by: Prasanth Nichols M.D. on 05/31/2025 at 13:35 Approved by: Prasanth Nichols M.D. on 05/31/2025 at 13:39
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
--- NOTE | 2025-05-31 10:05 | DI.CT.S_ITS ---
PROCEDURE: CT THORACIC SPINE WO CON INDICATIONS: fall TECHNIQUE: Noncontrast 3 mm thick sections acquired through the region of interest in the thoracic spine. Sagittal and coronal reformats were then constructed. For radiation dose reduction, the following was used: automated exposure control. COMPARISON: None. FINDINGS: Image quality: Excellent. Bones: There is normal overall bony alignment. No acute vertebral body compression fractures. No suspicious sclerotic or lytic bony lesions. Central spinal canal is of normal overall caliber. Soft tissues: No paravertebral masses or hematomas. Visualized posteromedial lungs appear clear. IMPRESSION: No acute compression fracture. Dictated by: Prasanth Nichols M.D. on 05/31/2025 at 11:17 Approved by: Prasanth Nichols M.D. on 05/31/2025 at 11:20
[2025-05-31] MEDS: ACETAMINOPHEN 325 MG TABLET 975 MG PO (11:40)
[2025-05-31] MEDS: MORPHINE 4 MG/ML INJ IM (12:05)
[2025-05-31] MEDS: BACLOFEN 10 MG TABLET PO (13:59)
[2025-05-31] MEDS: GABAPENTIN 400 MG CAPSULE PO (13:59)
[2025-05-31] MEDS: LIDOCAINE 1% 20 ML 10 ML SUBCUT (14:20)
[2025-05-31] MEDS: TET,DIPH,PERTUSS(ACELL),VAC/PF 0.5 ML SYRINGE IM (14:21)
--- NOTE | 2025-06-05 18:38 | ED.FALL ---
HPI - Fall General Chief Complaint: Fall Stated Complaint: Fall, head and extremity injuries Time Seen by Provider: 05/31/25 10:02 Source: patient Mode of arrival: Ambulatory History of Present Illness HPI Narrative: PLEASANT 70-YEAR-OLD MAN COMES TO THE ER BECAUSE OF A MECHANICAL FALL WHERE HE TRIPPED OVER HIS OWN FEET AND AROUND. THIS WAS WITNESSED BY HIS . THEY DENY ANY LOSS OF CONSCIOUSNESS BEFORE OR AFTER THE FALL. HE DENIES ANY RECENT LIGHTHEADEDNESS OR DIZZINESS. HE HAS CHRONIC NECK PAIN ONLY PAIN HE IS EXPERIENCING AT THIS TIME. 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 AND IS STILL UNDERGOING EVALUATION FOR THIS SO HE IS NOT YET ON MEDS Related Data Home Medications ?Medication ?Instructions ?Recorded ?Confirmed losartan 25 mg tablet 25 mg PO DAILY heart attack 02/05/23 05/24/25 ezetimibe 10 mg tablet 10 mg PO DAILY 09/29/23 05/24/25 Previous Rx's ?Medication ?Instructions ?Recorded rosuvastatin 10 mg tablet 10 mg PO DAILY #90 tabs 10/05/23 Accu-Chek Guide #1 ea 02/03/24 glipizide 5 mg tablet 5 mg PO TID #270 tabs 01/23/25 naproxen 250 mg tablet 500 mg (2 x 250 mg) PO BID PRN 03/26/25 pain #120 tabs tizanidine 2 mg tablet 2 mg PO Q8H PRN muscle spasticity 03/26/25 #60 tabs blood sugar diagnostic (Accu-Chek #100 ea 04/25/25 Guide test strips) metformin 500 mg tablet,extended 1,000 mg (2 x 500 mg) PO BID #360 04/25/25 release 24 hr tabs oxycodone 5 mg tablet 5 mg PO DAILY PRN pain #30 tabs 05/09/25 baclofen 10 mg tablet 10 mg PO TID #60 tabs 05/24/25 gabapentin 400 mg capsule 400 mg PO DAILY #90 caps 05/24/25 lorazepam 0.5 mg tablet 0.5 mg PO DAILY PRN pre-procedure 05/30/25 #1 tab oxycodone 10 mg tablet 10 mg PO Q6H PRN pain #12 tabs 05/31/25 buspirone 15 mg tablet 15 mg PO 3XD #270 tabs 06/04/25 mirtazapine 30 mg tablet 30 mg PO BEDTIME MDD #90 tabs 06/05/25 pramipexole 1 mg tablet 1 mg PO BEDTIME #90 tabs 06/05/25 Allergies Allergy/AdvReac Type Severity Reaction Status Date / Time lisinopril Allergy Severe Swelling Verified 05/31/25 10:02 of Lip/Tongue/Throat cefaclor (CEFACLOR) Allergy Unknown rash Verified 05/31/25 10:02 Patient History Medical History (Updated 05/31/25 @ 13:59 by Yoshi Garcia MD) DNR (do not resuscitate) Substance or medication-induced psychotic disorder Akathisia Fatigue Bilateral hand numbness Thoracic back pain Hypertension (02/06/11) Esophageal reflux (02/06/11) Diabetes type 2, controlled (02/06/11) Depressive disorder, not elsewhere classified (02/06/11) Other cervical disc degeneration at C4-C5 level (02/06/11) 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, recurrent severe without psychotic features Cervical radiculopathy Cervicalgia Cervical spondylosis DJD (degenerative joint disease), cervical Depression, major, recurrent Coronary artery disease Tobacco use disorder History of prostate cancer Generalized anxiety disorder Mixed hyperlipidemia Polyneuropathy, unspecified Type 2 diabetes mellitus with polyneuropathy Surgical History History of fusion of cervical spine H/O prostatectomy Social History marital status: household members: spouse lives independently: Yes occupational status: previously employed alcohol intake: former substance use type: does not use and marijuana Smoking Status: Former smoker alcohol intake frequency: holidays/special occasions only Exam Initial Vital Signs Initial Vital Signs: Vital Signs Pulse Rate 103 H 05/31/25 09:55 Pulse Oximetry 91 05/31/25 09:55 Const General: cooperative HENMT Head: normal to inspection, normocephalic and atraumatic Ears: TM's normal bilaterally and EAC's normal Face and sinus: normal facial exam, no ecchymosis, no lacerations and no tenderness Mouth: oropharynx normal Eyes General: Yes appearance normal, both eyes and all related structures Neck Neck: normal visual inspection, no meningeal signs and tender Resp Effort & Inspection: normal respiratory effort Auscultation: clear to auscultation bilaterally Cardio Rate: regular rate Rhythm: regular rhythm Heart Sounds: S1 normal and S2 normal GI Palpation: soft and No tender Auscultation: normal bowel sounds General: No CVA tenderness Course Orders Ordered: Discontinued Medications Acetaminophen (Acetaminophen 325 Mg Tablet) 975 mg PO NOW ONE Stop: 05/31/25 11:38 Last Admin: 05/31/25 11:40 Dose: 975 mg Documented By: LEÓN Baclofen (Baclofen 10 Mg Tablet) 10 mg PO NOW ONE Stop: 05/31/25 13:45 Last Admin: 05/31/25 13:59 Dose: 10 mg Documented By: HERACLIO Diphtheria/Tetanus/Acell Pertussis (Tet,Diph,Pertuss(Acell),Vac/Pf 0.5 Ml Syringe) 0.5 ml IM .ONCE ONE Stop: 05/31/25 13:58 Last Admin: 05/31/25 14:21 Dose: 0.5 ml Documented By: LEÓN Gabapentin (Gabapentin 400 Mg Capsule) 400 mg PO NOW ONE Stop: 05/31/25 14:01 Last Admin: 05/31/25 13:59 Dose: 400 mg Documented By: HERACLIO Lidocaine HCl (Lidocaine 1% 20 Ml) 10 ml SUBCUT NOW ONE Stop: 05/31/25 14:03 Last Admin: 05/31/25 14:20 Dose: 10 ml Documented By: LEÓN Morphine Sulfate (Morphine 4 Mg/Ml Inj) 4 mg IM NOW ONE Stop: 05/31/25 12:00 Last Admin: 05/31/25 12:05 Dose: 4 mg Documented By: LEÓN Oxycodone HCl (Oxycodone Ir 5 Mg Tablet) 10 mg PO NOW ONE Stop: 05/31/25 14:01 Last Admin: 05/31/25 14:20 Dose: 10 mg Documented By: LEÓN MDM - Fall MDM Narrative Medical decision making narrative: PATIENT SEEN AND EXAMINED BY MYSELF IN THE ER. HIS IMAGING WAS NEGATIVE FOR ANY ACUTE INJURIES. pT DISCHARGED HOME WITH ADDITIONAL PAIN MEDICAITON. aDVSIED TO RETURN ACCORDING TO INSTRUCTIONS ON HIS DISCHARGE PACKET. FALL LIKELY 2/2 HIS WORSENING PARKINSONS. Discharge Plan Departure Patient Disposition: Home Clinical Impression: Fall Qualifiers: Encounter type: initial encounter Qualified Code(s): W19.XXXA - Unspecified fall, initial encounter Instructions: How to Prevent Falls Activity Restrictions/Additional Instructions: Please follow up with your PCP as soon as possible. If your falls continued to become more frequent you may require more urgent neurology consultation. If there is any sudden change or worsening in your condition such as worsening pain, confusion, worsening tremors then call 911 or return to the ER right away. You should also see a neurologist melany to help diagnose what condition you have. Prescriptions: New oxycodone 10 mg tablet 10 mg PO Q6H PRN (Reason: pain) Qty: 12 0RF No Action ezetimibe 10 mg tablet 10 mg PO DAILY naproxen 250 mg tablet 500 mg PO BID PRN (Reason: pain) Qty: 120 2RF tizanidine 2 mg tablet 2 mg PO Q8H PRN (Reason: muscle spasticity) Qty: 60 0RF baclofen 10 mg tablet 10 mg PO TID Qty: 60 0RF Rx Instructions: Take 10mg 3 times dialy, ok to increase to 20mg 3 times daily, max dose 80mg daily gabapentin 400 mg capsule 400 mg PO DAILY Qty: 90 0RF Rx Instructions: take 400mg TID, ok to increase to 800mg TID, max dose 2400mg daily mirtazapine 30 mg tablet 30 mg PO BEDTIME Qty: 90 1RF pramipexole 1 mg tablet 1 mg PO BEDTIME Qty: 90 2RF rosuvastatin 10 mg tablet 10 mg PO DAILY Qty: 90 3RF (DME) Accu-Chek Guide See Rx Instructions .Route .MEDSUPPLY Qty: 1 0RF Rx Instructions: As directed to monitor glucose daily glipizide 5 mg tablet 5 mg PO TID Qty: 270 3RF metformin 500 mg tablet extended release 24 hr 1,000 mg PO BID Qty: 360 4RF (DME) Accu-Chek Guide test strips Strip See Rx Instructions .ROUTE .MEDSUPPLY Qty: 100 11RF Rx Instructions: As directed to monitor glucose daily oxycodone 5 mg tablet 5 mg PO DAILY PRN (Reason: pain) Qty: 30 0RF lorazepam 0.5 mg tablet 0.5 mg PO DAILY PRN (Reason: pre-procedure) Qty: 1 0RF Rx Instructions: take one tab 20 min prior to procedure start time buspirone 15 mg tablet 15 mg PO 3XD Qty: 270 0RF losartan 25 mg tablet 25 mg PO DAILY Referrals: Lela Anderson MD [Primary Care Provider, Family Practice] Stand Alone Forms: Patient Portal/API
== END 2025-05-31 14:53 | disposition home or self-care (01) ==
PROVIDERS: Emergency Provider Emergency Medicine; Family Provider Family Medicine; PCP Family Medicine
DX: S09.90XA Unspecified injury of head, initial encounter (principal); M54.2 Cervicalgia; W01.0XXA Fall on same level from slipping, tripping and stumbling without subsequent striking against object, initial encounter; Z23 Encounter for immunization
CPT/HCPCS: 70450; 72125; 72128; 72131; 90471; 96372; 99284; 90715; J2270

== ENCOUNTER → 2025-07-12 13:07 | Outpatient (CLI) | payer MEDICARE, SELFPAY ==
[2025-06-01 08:56] VITALS: BMI 23.7
[2025-07-12 13:25] LABS: Add Manual Diff / Slide Review NO; Hematocrit 41.1 % (41-53); Hemoglobin 13.4 g/dL (13.5-17.5); Lymphocytes Absolute Auto 1500 /uL (1100-4500); Mean Corpuscular HGB Conc 32.7 % (30-36); Mean Corpuscular Hemoglobin 29.5 PG (26-34); Mean Corpuscular Volume 90.2 fL (80-100); Platelet Count 215 X10^3/uL (150-400)
[2025-07-12 14:03] LABS: Alanine Aminotransferase 25 IU/L (<50); Albumin 4.4 g/dL (3.5-5.0); Albumin Globulin Ratio 1.7 (1.0-2.8); Alkaline Phosphatase 53 U/L (38-126); Blood Urea Nitrogen 13 mg/dL (9-20); Calcium 10.0 mg/dL (8.4-10.2); Carbon Dioxide 31 mmol/L (22-32); Chloride 101 mmol/L (98-107); Estimated Glomerular Filt Rate > 60 mL/min (>60); Globulin 2.6 g/dL (1.7-4.1); Glucose 109 mg/dL (70-99); HEMOLYSIS 29 (0-50); Sodium 140 mmol/L (137-145); Total Protein 7.0 g/dL (6.3-8.2)
[2025-07-12 14:04] LABS: Potassium 5.4 mmol/L (3.4-5.1)
[2025-07-12 14:27] LABS: TSH w/ Reflex to FT4 1.17 uIU/mL (0.47-4.68)
== END ==
PROVIDERS: PCP Family Medicine; Referring Provider Family Medicine; Visit Provider Family Medicine
DX: R63.4 Abnormal weight loss (principal)
CPT/HCPCS: 36415; 80053; 84443; 85025; 85651; 86140

== ENCOUNTER → 2025-07-18 13:45 | Outpatient (CLI) | payer MEDICARE, SELFPAY ==
[2025-06-01 08:56] VITALS: BMI 23.7
--- NOTE | 2025-07-18 13:46 | DI.CT.S_ITS ---
PROCEDURE: CT LUNG LOW DOSE SCREENING INDICATIONS: lung CA screening TECHNIQUE: Noncontrast 2.0-2.5 mm thick sections acquired from the pulmonary apices to the posterior costophrenic angles. 7 mm thick axial MIP, and 5 mm coronal and sagittal reformats were then acquired. For radiation dose reduction, the following was used: automated exposure control, adjustment of mA and/or kV according to patient size. COMPARISON: [facility], CT, CT ANGIO CHEST ABDOMEN PELVIS, 01/29/2023, 15:08. FINDINGS: Image quality: Diagnostic. Lower Neck: No enlarged lymph nodes. Thyroid: No thyroid nodules which require sonographic follow up, per consensus guidelines. Axillae: No enlarged lymph nodes. Chest Wall: Unremarkable. Bones: Unremarkable. Lungs and Pleura: No pneumothorax or pleural effusions. There is more prominent reticulation seen in the right mid to lower lung, with ground-glass density as well as mild traction bronchiectasis. There are also new extensive areas of geographic ground-glass density seen especially in the left upper lobe. Underlying moderate COPD Heart: Heart size is normal. No pericardial effusion. Thoracic Vessels: The aorta and pulmonary arteries demonstrate normal size. Mediastinum and Keli: No enlarged lymph nodes. Esophagus: No wall thickening. No hiatal hernia. Upper Abdomen: Visualized upper abdomen solid organs and bowel loops appear normal. IMPRESSION: 1. Findings most suggestive of more prominent chronic interstitial lung disease with mixed NSIP pattern. 2. New extensive areas of ground-glass density, especially in the left upper lobe, may present superimposed acute interstitial pneumonitis. Short-term follow-up CT may be obtained to assess for resolution. LUNG-RADS 0; follow-up low-dose CT in 6 weeks Clinically Significant Non-pulmonary Findings: None. Dictated by: Lee Mckay M.D. on 07/18/2025 at 20:50 Approved by: Lee Mckay M.D. on 07/18/2025 at 20:55
== END ==
LOC: CT 13:45
PROVIDERS: PCP Family Medicine; Referring Provider Family Medicine; Visit Provider Family Medicine
DX: Z12.2 Encounter for screening for malignant neoplasm of respiratory organs (principal); Z87.891 Personal history of nicotine dependence; R63.4 Abnormal weight loss; J44.9 Chronic obstructive pulmonary disease, unspecified
CPT/HCPCS: 71271

== ENCOUNTER 2025-08-02 09:18 | Outpatient (CLI) | payer MEDICARE, SELFPAY ==
[2025-06-01 08:56] VITALS: BMI 23.7
[2025-08-02] VITALS (10 sets, daily range): BP systolic 114–136; BP diastolic 73–84; PULSE 75–85; RESP 15–18; TEMP 36.3; O2SAT 97–100
[2025-08-02] MEDS: MIDAZOLAM 2 MG/2 ML VIAL IV (10:23)
--- NOTE | 2025-08-02 10:45 | P.PCN_ITS ---
Date/Time/Diagnoses Date of procedure: 08/02/25 Time of procedure: 10:45 Pre-procedure diagnosis: 1. CERVICAL STENOSIS, 2. CERVICAL HNP WITH UPPER EXTREMITY RADICULAR FEATURES Procedure Notes Procedure: FLUORSCOPICALLY GUIDED CONTRAST CONTROLLED INTERLAMINAR EPIDURAL STEROID INJECTION - C7/T1 TL ALBA Indications: Anusha is referred by Dr. Anderson for treatment of Cervical Stenosis. Physician: Kang Arellano Total Fluoroscopy time (seconds): 27 Total sedation minutes: 17 Complications: none Procedure in detail & Post-procedure care: DESCRIPTION OF PROCEDURE Following review of allergy and review of potential side effects and complications, including, but not necessarily limited to, infection, allergic reaction, local tissue breakdown, temporary as well as permanent nerve injury, stroke, paralysis, and possible , the patient indicated that patient understood and agreed to proceed. An informed consent document was signed by the patient, witnessed by a nurse, and placed in the patient's chart. Additionally, other treatment options including modalities, medications, and physical therapy were reviewed with the patient. After review of previous anaesthesic history and IV conscious sedation the patient was deemed safe to proceed with todays procedure with IV conscious sedation as ASA class II designation. Safety time-out was performed to confirm patient ID, procedure to be performed and site of procedure. IV sedation was accomplished with a combination of 2mg of Versed administered by the RN after DO order, titrated to patient comfort during the course of the procedure while the patient remained responsive to all verbal commands. In the prone position, following sterile prep and drape of the cervical region, the C7/T1 translaminar space was identified fluoroscopically. The skin was anesthetized via a 25-gauge 1.5-inch needle with 1% lidocaine solution. At this point, a 25-gauge, 2.5-inch short bevel spinal needle was atraumatically introduced and advanced under fluoroscopic guidance into epidural space at the C7/T1 translaminar space. Depth was confirmed on lateral view. Radiological data, including multiple fluoroscopic views of the cervical spine, reveal a spinal needle at the C7/T1 translaminar space. Lateral views then show placement of the needle in the epidural space. Subsequent views show contrast material flowing superiorly and inferiorly in the epidural space. DSA fl uoroscopy with live contrast injection, once again, confirmed no vascular or intrathecal uptake. At this point, using loss of resistance technique with saline and air, the epidural space was entered. Following negative aspiration, injection of approximately 1.5 cc of Isovue-200 with live fluoroscopy in the AP view confirmed epidural flow in the epidural space without vascular or intrathecal up take observed. Subsequently, a test dose of 1 cc of 1% lidocaine solution was injected and patient was observed for two minutes without signs or symptoms of complications, including abdominal pain, shortness of breath, bilateral upper or lower extremity weakness, nausea and vomiting, prior to steroid injection. At this point, 2cc or 20mg of dexamethasone was then injected without incident. The patient tolerated the procedure well without signs or symptoms of complications prior to transfer to the recovery area for further monitoring The patient was then transferred to the recovery area where they were observed for an appropriate period of time after the injection. The patient reported a VAS score of 6 prior to the procedure and a post-procedure VAS of 0 POST OP INSTRUCTIONS The patient was provided a Pain Log to continue to record the patient's response to the target-specific procedure prior to the patient's follow-up visit with the referring physician. Additionally, specific post-injection care instructions and a contact number to our office were provided if concerns arise regarding possible complications associated with the procedure are suspected.
== END 2025-08-02 11:01 | disposition home or self-care (01) ==
LOC: RAD 09:18
PROVIDERS: PCP Family Medicine; Referring Provider Physical Medicine & Rehabilitation; Visit Provider Physical Medicine & Rehabilitation
DX: M48.02 Spinal stenosis, cervical region (principal); M50.13 Cervical disc disorder with radiculopathy, cervicothoracic region
CPT/HCPCS: 62321; 99152; J1100; J2250

== ENCOUNTER → 2025-08-10 08:30 | Outpatient (CLI) | payer MEDICARE, SELFPAY ==
[2025-06-01 08:56] VITALS: BMI 23.7
[2025-08-10 09:41] LABS: Cholesterol 166 mg/dL (140-199); HDL Cholesterol 69 mg/dL (40-60); Triglycerides 154 mg/dL (35-150)
== END ==
PROVIDERS: PCP Family Medicine; Referring Provider Internal Medicine Cardiovascular Disease; Visit Provider Internal Medicine Cardiovascular Disease
DX: I25.10 Atherosclerotic heart disease of native coronary artery without angina pectoris (principal)
CPT/HCPCS: 36415; 80061

== ENCOUNTER → 2025-08-14 07:06 | Outpatient (CLI) | payer MEDICARE, SELFPAY ==
[2025-06-01 08:56] VITALS: BMI 23.7
--- NOTE | 2025-08-14 07:08 | DI.RAD.S_ITS ---
PROCEDURE: XR HIP W PEL IF DONE LT 2V
== END ==
PROVIDERS: PCP Family Medicine; Referring Provider Family Medicine; Visit Provider Family Medicine
DX: M25.552 Pain in left hip (principal); M16.12 Unilateral primary osteoarthritis, left hip
CPT/HCPCS: 73502

== ENCOUNTER → 2025-08-14 07:08 | Outpatient (CLI) | payer MEDICARE, SELFPAY ==
[2025-06-01 08:56] VITALS: BMI 23.7
--- NOTE | 2025-08-14 07:10 | DI.US.S_ITS ---
PROCEDURE: US ABDOMEN COMPLETE INDICATIONS: LEFT UPPER QUADRANT PAIN WITH WEIGHT LOSS TECHNIQUE: Real-time scanning was performed of the abdominal and retroperitoneal organs, with image documentation. COMPARISON: [facility], CT, CT ABDOMEN PELVIS W CON, 11/23/2023, 1:43. [facility], US, US ABDOMEN LIMITED, 11/23/2023, 18:05. FINDINGS: Liver: The liver demonstrates normal size. The liver demonstrates generalized mildly increased echogenicity. This decreases ultrasound sensitivity for detection of hepatic masses. Gallbladder: No findings of gallstones or sludge are seen. The gallbladder wall is not thickened, measuring 3 mm or less. No specific pericholecystic fluid is seen. The sonographic Nettles sign is negative. Biliary ducts: Intrahepatic bile ducts are non-dilated. Extrahepatic bile duct caliber measures 7 mm. Normal is 6-7 mm or less in diameter, or 10 mm or less post-cholecystectomy. Pancreas: Visualized portions of the pancreas are sonographically normal. Spleen: Spleen is normal in size and homogeneous in echotexture. Kidneys: Kidneys are normal in size and echotexture. Right kidney measures 10.5 cm long; left kidney measures 10.5 cm long. No hydronephrosis. No solid masses. Scattered throughout both kidneys, there are hyperechoic foci. Bilateral renal cysts are seen, with the largest on the right seen inferiorly and posteriorly, measuring up to 1 cm. On the left, there is a cystic cluster with multiple punctate echogenic seen involving the anterior mid kidney foci measuring 2.5 x 1.5 x 1.4 cm. Aorta: Visualized aorta is normal in caliber at less than 3 cm. Iliacs: Proximal common iliac arteries are normal in caliber at less than 2.5 cm. IVC: Intrahepatic inferior vena cava is patent. Miscellaneous: No free abdominal fluid. IMPRESSION: No imaging explanation is found for this patient's presenting symptoms. Potential nonobstructing kidney stones are seen. Complex cluster of cysts seen involving the left kidney. Mild fatty liver infiltration. Dictated by: Davidson Amador M.D. on 08/14/2025 at 16:21 Approved by: Davidson Amador M.D. on 08/14/2025 at 16:25
== END ==
LOC: US 07:09
PROVIDERS: PCP Family Medicine; Referring Provider Family Medicine; Visit Provider Family Medicine
DX: N28.1 Cyst of kidney, acquired (principal); K76.0 Fatty (change of) liver, not elsewhere classified; R10.12 Left upper quadrant pain; M25.552 Pain in left hip; M89.9 Disorder of bone, unspecified; M47.816 Spondylosis without myelopathy or radiculopathy, lumbar region; M47.818 Spondylosis without myelopathy or radiculopathy, sacral and sacrococcygeal region
CPT/HCPCS: 73502; 76700

== ENCOUNTER → 2025-09-27 17:11 | Outpatient (CLI) | payer MEDICARE, SELFPAY ==
[2025-06-01 08:56] VITALS: BMI 23.7
--- NOTE | 2025-09-27 17:13 | DI.MRI.S_ITS ---
PROCEDURE: MR LUMBAR SPINE WO CON INDICATIONS: lumbar radiculopathy TECHNIQUE: Noncontrast sagittal T1 spin echo and T2 fast echo, sagittal STIR, and T2 fast spin echo through the lumbar spine. In cases with scoliosis, additional coronal T2 fast spin echo may be performed. COMPARISON: None. FINDINGS: Image quality: Excellent. Alignment and Curvature: There is trace retrolisthesis of L2 on L3, trace anterolisthesis of L4 on L5 and trace retrolisthesis of L5 on S1. Bone Marrow: Marrow is of normal overall signal. Mild reactive endplate changes at L4-5. No acute vertebral body compression fractures. Spinal Cord: Conus medullaris terminates at the L1-2 level. Visualized cord demonstrates normal signal and size. Paraspinous Soft Tissues: No paravertebral masses. Increased foci of T2 signal consistent with simple cysts. Discs: Multilevel moderate to severe disc desiccation most severe L4-5, L5-S1. T12-L1: No disc bulge, spinal stenosis or foraminal narrowing. L1-L2: No disc bulge, spinal stenosis or foraminal narrowing. L2-L3: Mild disc bulge with minimal canal narrowing. [id number] bilateral foraminal narrowing with facet and ligamentum flavum hypertrophy. L3-L4: Minimal disc bulge without spinal stenosis. Moderate bilateral foraminal narrowing with facet and ligamentum flavum hypertrophy. L4-L5: Mild disc bulge with minimal canal narrowing. Severe bilateral foraminal narrowing with facet and ligamentum flavum hypertrophy. Mild compression of exiting L4 nerve roots bilaterally. L5-S1: Mild disc bulge with minimal spinal stenosis. Severe bilateral foraminal narrowing with minimal compression of the exiting L5 nerve roots bilaterally. IMPRESSION: Multilevel disc bulges. Multilevel moderate to severe foraminal narrowing most significant at L5-S1 with mild compression of the exiting L4 and L5 nerve roots bilaterally. Dictated by: Court Vázquez M.D. on 09/28/2025 at 20:01 Approved by: Court Vázquez M.D. on 09/28/2025 at 20:04
== END ==
LOC: MRI 17:12
PROVIDERS: PCP Family Medicine; Referring Provider Internal Medicine; Visit Provider Internal Medicine
DX: M51.16 Intervertebral disc disorders with radiculopathy, lumbar region (principal); M51.17 Intervertebral disc disorders with radiculopathy, lumbosacral region; M48.07 Spinal stenosis, lumbosacral region; M47.26 Other spondylosis with radiculopathy, lumbar region
CPT/HCPCS: 72148